=== PATIENT | female | born 1970 | race Caucasian/White ===

== ENCOUNTER → 2017-08-02 13:42 | Outpatient (POV) | payer MEDICARE, MEDICAID, SELFPAY ==
[2017-08-02 14:04] VITALS: BP 164/98; PULSE 98; RESP 18; TEMP 37.2; O2SAT 97; BMI 28.6
--- NOTE | 2017-08-02 14:16 | P.CONS_ITS ---
[facility] Pain Management SOAP Note Subjective:: This patient is a pleasant 46-year-old white female who we saw in December of last year for myofascial pain in the neck and shoulders. She received bilateral trigger point injections to her neck and upper trapezius area bilaterally. She did very well from these. She had good relief of her pain symptoms up until May. She was 80-90% better for 5 months. Her pain is starting to return. I do believe that she would benefit from repeat trigger point injections to bilateral cervical paraspinous muscles and upper trapezius muscles. Objective:: Alert and oriented ?3 in no acute distress. Decreased range of motion of the cervical spine. Trigger points identified through bilateral upper trapezius muscles and bilateral cervical paraspinous muscles. Motor strength of the upper extremities is 5/5. There is no gross sensory deficit. Assessment:: Neck pain and myofascial pain through cervical paraspinous muscles and upper trapezius muscles with trigger points identified. Plan:: We will schedule for trigger point injections to bilateral cervical paraspinous muscles and upper trapezius muscles.
== END ==
PROVIDERS: Family Provider Emergency Medicine; PCP Emergency Medicine; Visit Provider Anesthesiology
DX: M54.2 Cervicalgia (principal)
CPT/HCPCS: 99212

== ENCOUNTER → 2017-09-22 11:40 | Outpatient (REF) | payer MEDICARE, MEDICAID, SELFPAY ==
[2017-09-22 15:08] LABS: Basophils # 0.1 K/mm3 (0-0.2); Basophils % 0.9 % (0.1-2.0); Eosinophils # 0.2 K/mm3 (0.0-0.4); Eosinophils % 2.1 % (0.1-12.0); Hematocrit 47.7 % (37.0-47.0); Hemoglobin 15.3 g/dL (12.2-16.2); Lymphocytes # 2.9 K/mm3 (0.7-4.5); Lymphocytes % 31.4 K/mm3 (10-50); Mean Corpuscular HGB Conc 32.2 g/dL (31.8-35.4); Mean Corpuscular Hemoglobin 30.8 pg (27.0-31.2); Mean Corpuscular Volume 95.8 fl (81-99); Mean Platelet Volume 9.8 fl (7.4-10.4); Monocytes # 0.5 K/mm3 (0.1-1.0); Neutrophils # 5.6 K/mm3 (1.8-7.8); Neutrophils % 60.7 % (37.0-80.0); Platelet Count 273 K/mm3 (142-424); Red Blood Count 4.98 M/mm3 (4.20-5.40); Red Cell Distribution Width 13.2 % (11.5-17.5); White Blood Count 9.2 K/mm3 (4.8-10.8)
[2017-09-22 16:04] LABS: Alanine Aminotransferase 32 U/L (12-78); Albumin Level 3.2 gm/dL (3.4-5.0); Albumin/Globulin Ratio 0.9 (1.1-1.8); Alkaline Phosphatase 122 U/L (46-116); Anion Gap 13.3 mEq/L (5-15); Aspartate Amino Transferase 22 U/L (15-37); Bilirubin,Total 0.3 mg/dL (0.2-1.0); Blood Urea Nitrogen 7 mg/dL (7-18); Calcium 8.4 mg/dL (8.5-10.1); Carbon Dioxide 25 mmol/L (21.0-32.0); Chloride 107 mmol/L (98-107); Chol/HDL Ratio 5.5 (1-3.5); Cholesterol 159 mg/dL (140-200); Estimated Glomerular Filt Rate 107 ml/min (>60); GFR (African American) 130 ML/MIN (>60); Globulin 3.5 gm/dl (1.3-3.2); Glucose 122 mg/dL (74-106); HDL Cholesterol 29 mg/dL (29-89); Potassium 4.3 mmoL/L (3.5-5.1); Sodium 141 mmol/L (136-145); T4 (Thyroxine) 8.1 ug/dl (4.7-13.3); Thyroid Stimulating Hormone 2.12 uIU/ml (0.358-3.740); Total Protein,Serum 6.7 gm/dL (6.4-8.2)
[2017-09-22 16:07] LABS: Triglycerides 578 mg/dL (30-200)
[2017-09-24 15:33] LABS: Vitamin D 25 Hydroxy 21.7 ng/mL (30.0-100.0)
== END ==
LOC: LAB 11:40
PROVIDERS: Visit Provider Physician Assistant
DX: E11.9 Type 2 diabetes mellitus without complications (principal)
CPT/HCPCS: 80053; 80061; 82652; 83036; 84436; 84443; 85025

== ENCOUNTER → 2017-11-01 16:23 | Outpatient (CLI) | payer MEDICARE, MEDICAID, SELFPAY ==
--- NOTE | 2017-11-01 16:25 | MM_ITS ---
MM Dig screening mamm BI w/CAD CAD Screening COMPARISON: Digital mammograms 06/19/2015 and 06/22/2016 INDICATION: There is a history of breast cancer patient's 2 maternal aunts diagnosed before menopause. TECHNIQUE: Standard CC and MLO images were obtained. R2 CAD reviewed. FINDINGS: Moderate scattered fiber glandular densities are seen in the central portions of both breasts. There is no suspicious lesion seen in either breast and there are no suspicious microcalcifications. IMPRESSION: Fibrofatty parenchyma no suspicious lesion seen BI-RADS Category: 1 Negative RECOMMENDED FOLLOW-UP: 1YR - 1 YEAR FOLLOW-UP (A letter has been sent to the patient regarding results of the study.)
== END ==
PROVIDERS: Family Provider Emergency Medicine; PCP Emergency Medicine; Visit Provider Nurse Practitioner Family
DX: Z12.31 Encounter for screening mammogram for malignant neoplasm of breast (principal)
CPT/HCPCS: 77067

== ENCOUNTER → 2018-01-04 15:14 | Outpatient (REF) | payer MEDICARE, MEDICAID, SELFPAY ==
[2018-01-04 15:53] LABS: Basophils # 0.1 K/mm3 (0-0.2); Basophils % 0.7 % (0.1-2.0); Eosinophils # 0.2 K/mm3 (0.0-0.4); Hematocrit 48.5 % (37.0-47.0); Lymphocytes # 3.9 K/mm3 (0.7-4.5); Mean Corpuscular HGB Conc 30.9 g/dL (31.8-35.4); Mean Corpuscular Hemoglobin 29.8 pg (27.0-31.2); Mean Corpuscular Volume 96.3 fl (81-99); Mean Platelet Volume 9.8 fl (7.4-10.4); Monocytes # 0.5 K/mm3 (0.1-1.0); Monocytes % 4.7 % (1.7-9.3); Neutrophils # 5.3 K/mm3 (1.8-7.8); Neutrophils % 53.6 % (37.0-80.0); Platelet Count 287 K/mm3 (142-424); Red Blood Count 5.03 M/mm3 (4.20-5.40); Red Cell Distribution Width 13.6 % (11.5-17.5)
[2018-01-04 16:01] LABS: Alanine Aminotransferase 28 U/L (12-78); Albumin Level 3.5 gm/dL (3.4-5.0); Albumin/Globulin Ratio 0.9 (1.1-1.8); Alkaline Phosphatase 135 U/L (46-116); Aspartate Amino Transferase 15 U/L (15-37); Bilirubin,Total 0.3 mg/dL (0.2-1.0); Blood Urea Nitrogen 8 mg/dL (7-18); Calcium 8.4 mg/dL (8.5-10.1); Carbon Dioxide 26 mmol/L (21.0-32.0); Chloride 105 mmol/L (98-107); Chol/HDL Ratio 5.8 (1-3.5); Cholesterol 198 mg/dL (140-200); Creatinine,Serum 0.65 mg/dL (0.55-1.02); Estimated Glomerular Filt Rate 98 ml/min (>60); GFR (African American) 118 ML/MIN (>60); Globulin 3.8 gm/dl (1.3-3.2); Glucose 235 mg/dL (74-106); HDL Cholesterol 34 mg/dL (29-89); Sodium 139 mmol/L (136-145); T4 (Thyroxine) 9.1 ug/dl (4.7-13.3); Thyroid Stimulating Hormone 2.93 uIU/ml (0.358-3.740); Total Protein,Serum 7.3 gm/dL (6.4-8.2)
[2018-01-04 16:02] LABS: Triglycerides 578 mg/dL (30-200)
[2018-01-04 16:40] LABS: Hemoglobin A1C 5.6 % (0.0-7.0)
[2018-01-06 13:56] LABS: Vitamin D 25 Hydroxy 39.7 ng/mL (30.0-100.0)
== END ==
LOC: LAB 15:14
PROVIDERS: Visit Provider Emergency Medicine
DX: E11.9 Type 2 diabetes mellitus without complications (principal)
CPT/HCPCS: 80053; 80061; 82652; 83036; 84436; 84443; 85025

== ENCOUNTER → 2018-05-16 13:32 | Outpatient (CLI) | payer MEDICARE, MEDICAID, SELFPAY ==
[2018-05-16 13:59] LABS: Hemoglobin A1C 6.8 % (0.0-7.0)
== END ==
PROVIDERS: PCP Emergency Medicine; Visit Provider Emergency Medicine
DX: E11.9 Type 2 diabetes mellitus without complications (principal)
CPT/HCPCS: 83036

== ENCOUNTER → 2018-12-19 13:25 | Outpatient (CLI) | payer MEDICARE, SELFPAY ==
[2018-12-19 14:15] LABS: Basophils # 0.1 K/mm3 (0-0.2); Basophils % 0.6 % (0.1-2.0); Eosinophils # 0.2 K/mm3 (0.0-0.4); Eosinophils % 2.2 % (0.1-12.0); Hematocrit 44.1 % (37.0-47.0); Hemoglobin 14.7 g/dL (12.2-16.2); Lymphocytes # 3.1 K/mm3 (0.7-4.5); Lymphocytes % 29.9 % (10-50); Mean Corpuscular HGB Conc 33.2 g/dL (31.8-35.4); Mean Corpuscular Hemoglobin 30.1 pg (27.0-31.2); Mean Corpuscular Volume 90.8 fl (81-99); Mean Platelet Volume 8.7 fl (7.4-10.4); Monocytes # 0.4 K/mm3 (0.1-1.0); Monocytes % 4.1 % (1.7-9.3); Neutrophils # 6.5 K/mm3 (1.8-7.8); Neutrophils % 63.2 % (37.0-80.0); Platelet Count 319 K/mm3 (142-424); Red Blood Count 4.86 M/mm3 (4.20-5.40); Red Cell Distribution Width 13.5 % (11.5-17.5); White Blood Count 10.3 K/mm3 (4.8-10.8)
[2018-12-19 14:35] LABS: Alanine Aminotransferase 31 U/L (12-78); Albumin Level 3.5 gm/dL (3.4-5.0); Albumin/Globulin Ratio 0.9 (1.1-1.8); Alkaline Phosphatase 142 U/L (46-116); Anion Gap 17.2 mEq/L (5-15); Aspartate Amino Transferase 17 U/L (15-37); Bilirubin,Total 0.5 mg/dL (0.2-1.0); Blood Urea Nitrogen 11 mg/dL (7-18); Calcium 8.2 mg/dL (8.5-10.1); Carbon Dioxide 24 mmol/L (21.0-32.0); Chloride 103 mmol/L (98-107); Chol/HDL Ratio 7.8 (1-3.5); Cholesterol 225 mg/dL (140-200); Creatinine,Serum 0.83 mg/dL (0.55-1.02); Estimated Glomerular Filt Rate 73 ml/min (>60); Free T4 (Free Thyroxine) 0.95 ng/dl (0.76-1.46); GFR (African American) 89 ML/MIN (>60); Globulin 3.8 gm/dl (1.3-3.2); Glucose 149 mg/dL (74-106); HDL Cholesterol 29 mg/dL (29-89); Potassium 4.2 mmoL/L (3.5-5.1); Sodium 140 mmol/L (136-145); Thyroid Stimulating Hormone 2.55 uIU/ml (0.358-3.740); Total Protein,Serum 7.3 gm/dL (6.4-8.2)
[2018-12-19 14:49] LABS: Triglycerides 867 mg/dL (30-200)
[2018-12-19 19:32] LABS: Hemoglobin A1C 6.4 % (0.0-7.0)
[2018-12-20 19:55] LABS: Vitamin B12 350 pg/mL (232-1245); Vitamin D 25 Hydroxy 24.4 ng/mL (30.0-100.0)
== END ==
PROVIDERS: Visit Provider Emergency Medicine
DX: E11.9 Type 2 diabetes mellitus without complications (principal); Z79.84 Long term (current) use of oral hypoglycemic drugs
CPT/HCPCS: 80053; 80061; 82607; 82652; 83036; 84439; 84443; 85025

== ENCOUNTER → 2019-02-16 12:38 | Outpatient (CLI) | payer MEDICARE, SELFPAY ==
--- NOTE | 2019-02-16 12:39 | CT_ITS ---
CT CERVICAL SPINE WITHOUT CONTRAST CT RECONSTRUCTIONS HISTORY:Neck pain with left arm numbness ORDERING PHYSICIAN: Cirilo Bishop APRN PATIENT AGE: 48 years COMPARISON: None Technique: All CT scans at the facility use one or more dose reduction, viz: automated exposure control, ma/kV adjustment per patient size (including targeted exams where dose is matched to indication, i.e. head), or iterative reconstruction technique PROCEDURE: Axial spiral CT scanning performed of the cervical spine beginning at the base of the skull and continuing to the upper T-spine. 3-D multiplanar reconstruction with 3-D manipulation of volumetric data set in image rendering was completed by the radiologist and/or technologist with the supervision of the radiologist on independent workstation. FINDINGS: There is normal alignment. There is slight reversal of the cervical lordosis. This could be due to patient positioning or muscle spasm. C2-C3 and C3-C4 and C4-C5 have an unremarkable appearance. C5-C6: Mild bulging disc slightly eccentric to the left. There is some minimal posterior longitudinal ligament calcification at this area. C6-C7 and C7-T1 are unremarkable. Upper thoracic images show a 3 mm noncalcified nodule in the right apex laterally and an additional 3 mm nodular density medially in the apex with some mild paraseptal emphysematous change. The most inferior image shows a 4 mm nodule in the right upper lobe posteriorly. IMPRESSION: 1. There is slight reversal of cervical lordosis which could be due to patient positioning or muscle spasm. 2. Mild degenerative disc disease C5-C6 with minimal bulging disc slightly eccentric to the left with mild left-sided foraminal narrowing. This may be better evaluated with MRI if clinically desired. 3. Nonspecific right upper lobe nodules. Consider 6 month follow-up
== END ==
PROVIDERS: PCP Emergency Medicine; Visit Provider Nurse Practitioner Family
DX: M54.2 Cervicalgia (principal)
CPT/HCPCS: 72125

== ENCOUNTER 2019-07-06 15:19 | Inpatient (IN) ==
--- NOTE | 2019-07-06 16:41 | History & Physical Report ---
*Admission Date: 07/06/19 *Chief complaint: soa *History of present illness: 49 yr old female presented to pcp office today for lightheadedness, tachycardia, soa with walking and chest pain, hyperglycemia, fatigue, and unable to keep liquids down. Pt states this has been going on for 1 week and was seen in [facility] and placed on antibiotics but now feels worse. Discussed pt with rachel and admitted for uncontrolled htn for cardiac work up. [facility] History I have reviewed the patient's past medical history: Yes 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: Reports:: Diabetes Mellitus Type 2, Hyperlipidemia, Hypertension Denies:: Diabetes Mellitus Type 1 *Have you ever received a pneumonia vaccine?: Yes *Have you received a flu vaccine this season?: No Other 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: Reports: Anemia, Cataracts, Hormone Therapy Laterality Cases: Bilateral: Tonsillectomy Other Surgeries: Yes: Cholecystectomy, Hysterectomy-Total, Tubal Ligation, Other Amputation: No Fractures: No - *Social History Educational Level: Attended College Smoking Status: Current every day smoker Tobacco Type: cigarettes # Packs/Day (cigarettes): 1 Alcohol Intake: never Alcohol Intake Frequency:: other Substance Use Type: denies use *Occupational Status:: employed Housing: house Household Members: none *Travel in the last 8 weeks: None Family Hx:: Cancer, Diabetes, Stroke Review of Systems - Review of Systems Review of systems:: pertinent systems reviewed and negative unless documented below - Constitutional Reports fatigue, Reports lack of energy, Denies body ache(s), Denies fever(s) - Eyes Denies change in vision - ENT Denies nasal discharge - *Cardiovascular Reports chest pain, Reports chest pain at rest, Reports chest pain with activity, Reports shortness of breath, Reports shortness of breath with activity, Reports lightheadedness - *Respiratory Reports shortness of breath with activity, Denies chest congestion - *Gastrointestinal Reports nausea, Denies loose stools, Denies vomiting - *Genitourinary Denies nipple discharge - *Musculoskeletal Denies limited joint movement - Integumentary/Breasts Denies rash - *Neurologic Reports dizziness - Psychiatric Denies lack of enjoyment - Endocrine Denies flushing - Hematologic/Lymphatic Denies enlarged lymph nodes - Allergic/Immunologic Denies itchy eyes Meds Home Medications Medication Instructions Recorded Confirmed Type metformin 1,000 mg tablet 1,000 mg PO BID #180 tab 01/04/19 07/06/19 Rx gemfibrozil 600 mg tablet 600 mg PO BID #180 tab 01/13/19 07/06/19 Rx glipizide 5 mg tablet 5 mg PO QDAY 90 Days #90 tab 03/28/19 07/06/19 Rx cetirizine 10 mg tablet 10 mg PO DAILY #90 tab 04/07/19 07/06/19 Rx trazodone 50 mg tablet 50 mg PO QHS PRN #90 tab 04/26/19 07/06/19 Rx atorvastatin 40 mg tablet 40 mg PO DAILY #90 tab 05/01/19 07/06/19 Rx bupropion HCl 75 mg tablet See Rx Instructions .ROUTE 05/08/19 07/06/19 Rx .COMPLEX #180 tablet ergocalciferol (vitamin D2) 1,250 See Rx Instructions .ROUTE 05/08/19 07/06/19 Rx mcg (50,000 unit) capsule .COMPLEX #12 capsule lisinopril 20 mg tablet 20 mg PO DAILY #90 tab 05/17/19 07/06/19 Rx estradiol 2 mg tablet See Rx Instructions .ROUTE 05/18/19 07/06/19 Rx .COMPLEX #90 tablet linagliptin 5 mg tablet See Rx Instructions .ROUTE 05/18/19 07/06/19 Rx .COMPLEX #90 tablet blood sugar diagnostic See Dose Instructions .ROUTE 05/23/19 07/06/19 Rx .MEDSUPPLY #100 each lancets See Dose Instructions .ROUTE 05/23/19 07/06/19 Rx .MEDSUPPLY #100 each omeprazole 20 mg capsule,delayed See Rx Instructions .ROUTE 06/21/19 07/06/19 Rx release .COMPLEX #90 capsule Amoxicillin/Potassium Clav 1 tab PO BID 10 Days #20 tab 07/01/19 07/06/19 Rx [Augmentin 875-125 Tablet] carvedilol 3.125 mg tablet See Rx Instructions .ROUTE 07/03/19 07/06/19 Rx .COMPLEX #180 tab Allergies Allergy/AdvReac Type Severity Reaction Status Date / Time codeine [CODEINE] Allergy Unknown I-HIVES Verified 07/06/19 14:33 Exam Vital signs and Labs for Last 24 Hours: Pulse BP Pulse Ox 95 H 178/103 H 97 07/06/19 16:15 07/06/19 16:15 07/06/19 16:15 I & O for Last 24 hours: Intake & Output 07/04/19 07/05/19 07/06/19 07/07/19 11:59 11:59 11:59 11:59 Weight 183 lb 9 oz - Constitutional no acute distress - *Routine HEENT Exam Head: Present: normocephalic Eye: Present: PERRL ENT: Present: mucous membranes moist - *Routine Neck Exam Present: supple, full ROM. Absent: lymphadenopathy - *Routine Respiratory Exam Present: CTA bilaterally - *Routine Cardiovascular Exam Present: tachycardia - *Routine Abdominal Exam Present: soft, normoactive bowel sounds. Absent: tenderness - *Routine Extremities Exam Present: full ROM. Absent: cyanosis, clubbing, edema - *Routine Skin Exam Present: intact, warm. Absent: rash - *Routine Neurological Exam Present: alert, oriented X3, CN II-XII intact, normal reflexes - Routine Psychiatric Exam Present: normal affect Assessment and Plan (1) Tachycardia Current visit: Yes Status: Acute Category: Medical Code(s): R00.0 - Tachycardia, unspecified (2) Uncontrolled hypertension Current visit: Yes Status: Acute Category: Medical Code(s): I10 - Essential (primary) hypertension (3) Hypertension Current visit: No Status: Acute Qualifiers: Hypertension type: essential hypertension Qualified Code(s): I10 - Essential (primary) hypertension Category: Medical Code(s): I10 - Essential (primary) hypertension (4) Obesity (BMI 30.0-34.9) Current visit: No Status: Acute Category: Medical Code(s): E66.9 - Obesity, unspecified (5) Tobacco use Current visit: No Status: Acute Category: Medical Code(s): Z72.0 - Tobacco use (6) Diabetes mellitus Current visit: No Status: Chronic Qualifiers: Diabetes mellitus type: type 2 Diabetes mellitus group home insulin use: without long term care phlebotomist use Diabetes mellitus complication status: without complica tion Qualified Code(s): E11.9 - Type 2 diabetes mellitus without complications Category: Medical Code(s): E11.9 - Type 2 diabetes mellitus without complications - Assessment and plan all Dx Assessment and Plan for all problems:: discussed with shantal all orders per shantal
[2019-07-06 16:49] LABS: Basophils # 0.1 K/mm3 (0-0.2); Basophils % 0.4 % (0.1-2.0); Eosinophils # 0.2 K/mm3 (0.0-0.4); Eosinophils % 1.7 % (0.1-12.0); Hematocrit 43.9 % (37.0-47.0); Hemoglobin 14.8 g/dL (12.2-16.2); Lymphocytes # 3.6 K/mm3 (0.7-4.5); Lymphocytes % 31.1 % (10-50); Mean Corpuscular HGB Conc 33.8 g/dL (31.8-35.4); Mean Corpuscular Volume 91.1 fl (81-99); Mean Platelet Volume 8.5 fl (7.4-10.4); Monocytes # 0.5 K/mm3 (0.1-1.0); Monocytes % 4.6 % (1.7-9.3); Neutrophils # 7.1 K/mm3 (1.8-7.8); Neutrophils % 62.2 % (37.0-80.0); Platelet Count 290 K/mm3 (142-424); Red Blood Count 4.82 M/mm3 (4.20-5.40); Red Cell Distribution Width 13.2 % (11.5-17.5); White Blood Count 11.5 K/mm3 (4.8-10.8)
[2019-07-06 16:50] LABS: Albumin Level 3.1 gm/dL (3.4-5.0); Albumin/Globulin Ratio 0.7 (1.1-1.8); Anion Gap 14.7 mEq/L (5-15); Bilirubin,Total 0.3 mg/dL (0.2-1.0); Calcium 8.3 mg/dL (8.5-10.1); Globulin 4.2 gm/dl (1.3-3.2); Total Protein,Serum 7.3 gm/dL (6.4-8.2)
[2019-07-07 06:11] LABS: Anion Gap 11.8 mEq/L (5-15); Blood Urea Nitrogen 12 mg/dL (7-18); Calcium 7.9 mg/dL (8.5-10.1); Carbon Dioxide 26 mmol/L (21.0-32.0); Chloride 104 mmol/L (98-107); Cholesterol 159 mg/dL (140-200); Glucose 179 mg/dL (74-106); HDL Cholesterol 32 mg/dL (29-89); Sodium 138 mmol/L (136-145)
[2019-07-07 06:35] LABS: Triglycerides 606 mg/dL (30-200)
[2019-07-07 08:34] LABS: Basophils # 0.1 K/mm3 (0-0.2); Basophils % 0.6 % (0.1-2.0); Eosinophils # 0.2 K/mm3 (0.0-0.4); Eosinophils % 1.8 % (0.1-12.0); Hematocrit 41.4 % (37.0-47.0); Hemoglobin 13.8 g/dL (12.2-16.2); Lymphocytes # 3.8 K/mm3 (0.7-4.5); Lymphocytes % 34.1 % (10-50); Mean Corpuscular HGB Conc 33.3 g/dL (31.8-35.4); Mean Corpuscular Volume 92.7 fl (81-99); Mean Platelet Volume 9.4 fl (7.4-10.4); Monocytes # 0.6 K/mm3 (0.1-1.0); Monocytes % 5.7 % (1.7-9.3); Neutrophils # 6.5 K/mm3 (1.8-7.8); Neutrophils % 57.8 % (37.0-80.0); Platelet Count 283 K/mm3 (142-424); Red Blood Count 4.47 M/mm3 (4.20-5.40); Red Cell Distribution Width 13.4 % (11.5-17.5); White Blood Count 11.2 K/mm3 (4.8-10.8)
--- NOTE | 2019-07-07 10:09 | Consult Report ---
History of Present Illness Consult date: 07/07/19 Requesting physician: Naif Childress Consult reason: chest pain Chief complaint: chest pain Additional 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:: 1. Normal coronary arteries in 2017 2. Normal renal arteries in 2017 3. Hypertension 4. Hyperlipidemia 5. Diabetes [facility] 09/2016 shows: 1. Normal coronary arteries. 2. Normal ejection fraction 3. Normal left ventricular end-diastolic pressure 4. Normal renal arteries History of present illness: This is a 49-year-old white female who presented to her primary care provider's office with tachycardia, shortness of breath, lightheadedness and chest pain with exertion. The patient states that her blood pressure had been running high and she was having chest pain with exertion. The patient also was complaining of fatigue and hyperglycemia. She states that she had not been feeling well when her blood pressure began to elevate. The patient was complaining of a pressure type sensation in the center of her chest. This is with exertion. It does get better with rest. Associated with shortness of breath, fatigue, lightheadedness and tachycardia. These symptoms were severe. Her blood pressure is under much better control at this time. She does report that her symptoms have improved. The patient does have a history of normal coronary arteries and normal renal arteries in 2017. The patient needs better blood pressure control. She denies any fever, chills, nausea, vomiting, diarrhea, PND or orthopnea. [facility] History I have reviewed the patient's past medical history: Yes 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: Reports:: Diabetes Mellitus Type 2, Hyperlipidemia, Hypertension Denies:: Diabetes Mellitus Type 1 *Have you ever received a pneumonia vaccine?: Yes *Have you received a flu vaccine this season?: No Other 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: Reports: Anemia, Cataracts, Hormone Therapy Laterality Cases: Bilateral: Tonsillectomy Other Surgeries: Yes: Cholecystectomy, Hysterectomy-Total, Tubal Ligation, Other Amputation: No Fractures: No - *Social History Educational Level: Attended College Smoking Status: Current every day smoker Tobacco Type: cigarettes # Packs/Day (cigarettes): 1 Alcohol Intake: never Alcohol Intake Frequency:: other Substance Use Type: denies use *Occupational Status:: employed Housing: house Household Members: none *Travel in the last 8 weeks: None Family Hx:: Cancer, Diabetes, Stroke Meds Home Medications Medication Instructions Recorded Confirmed Type metformin 1,000 mg tablet 1,000 mg PO BID #180 tab 01/04/19 07/06/19 Rx gemfibrozil 600 mg tablet 600 mg PO BID #180 tab 01/13/19 07/06/19 Rx glipizide 5 mg tablet 5 mg PO QDAY 90 Days #90 tab 03/28/19 07/06/19 Rx trazodone 50 mg tablet 50 mg PO QHS PRN #90 tab 04/26/19 07/06/19 Rx atorvastatin 40 mg tablet 40 mg PO DAILY #90 tab 05/01/19 07/06/19 Rx lisinopril 20 mg tablet 20 mg PO DAILY #90 tab 05/17/19 07/06/19 Rx Amoxicillin/Potassium Clav 1 tab PO BID 10 Days #20 tab 07/01/19 07/06/19 Rx [Augmentin 875-125 Tablet] Cetirizine HCl 10 mg PO DAILY 07/06/19 07/06/19 History Ergocalciferol (Vitamin D2) See Rx Instructions .ROUTE .COMPLEX 07/06/19 07/06/19 History [Drisdol] Estradiol [Estrace] 2 mg PO DAILY 07/06/19 07/06/19 History Linagliptin [Tradjenta 5mg tablet] 5 mg PO DAILY 07/06/19 07/06/19 History Omeprazole [Omeprazole 20mg 20 mg PO DAILY 07/06/19 07/06/19 History Capsule] buPROPion HCL [Wellbutrin 75mg 75 mg PO BID 07/06/19 07/06/19 History Tablet] carvediloL [Carvedilol 3.125mg Tab] 3.125 mg PO DAILY 07/06/19 07/06/19 History Allergies Allergy/AdvReac Type Severity Reaction Status Date / Time codeine [CODEINE] Allergy Unknown I-HIVES Verified 07/06/19 14:33 Review of Systems - Review of Systems Review of systems:: pertinent systems reviewed and negative unless documented below - Constitutional Reports fever(s), Reports lack of energy - *Cardiovascular Reports chest pain, Reports chest pain at rest, Reports chest pain with activity, Reports shortness of breath, Reports shortness of breath with activity, Reports fast heart rate - *Respiratory Reports shortness of breath, Reports shortness of breath with activity - *Neurologic Reports dizziness Exam Vital signs and Labs for Last 24 Hours: Temp Pulse Resp BP Pulse Ox 98.1 F 71 18 123/75 94 L 07/07/19 08:00 07/07/19 08:00 07/07/19 08:00 07/07/19 08:00 07/07/19 08:00 Laboratory Results - last 24 hr 07/06/19 15:55: WBC 11.5 H, RBC 4.82, Hgb 14.8, Hct 43.9, MCV 91.1, MCH 30.8, MCHC 33.8, RDW 13.2, Plt Count 290, MPV 8.5, Neut % (Auto) 62.2, Lymph % (Auto) 31.1, Moca % (Auto) 4.6, Eos % (Auto) 1.7, Baso % (Auto) 0.4, Neut # (Auto) 7.1, Lymph # (Auto) 3.6, Moca # (Auto) 0.5, Eos # (Auto) 0.2, Baso # (Auto) 0.1 07/06/19 15:55: Sodium 138, Potassium 3.7, Chloride 102, Carbon Dioxide 25, Anion Gap 14.7, BUN 12, Creatinine 0.84, Estimated Creat Clear 106, Estimated GFR 72, Est GFR ( Amer) 87, Glucose 175 H, Calcium 8.3 L, Total Bilirubin 0.3, AST 8 L, ALT 20, Alkaline Phosphatase 145 H, Total Protein 7.3, Albumin 3.1 L, Globulin 4.2 H, Albumin/Globulin Ratio 0.7 L 07/06/19 15:55: Troponin I < 0.02 07/06/19 20:03: POC Glucose 129 H 07/06/19 20:07: Troponin I < 0.02 07/06/19 22:32: Troponin I < 0.02 07/07/19 05:28: Sodium 138, Potassium 3.8, Chloride 104, Carbon Dioxide 26, Anion Gap 11.8, BUN 12, Creatinine 0.79, Estimated Creat Clear 117, Estimated GFR 77, Est GFR ( Amer) 94, Glucose 179 H, Calcium 7.9 L, Triglycerides 606 H, Cholesterol 159, HDL Cholesterol 32, Cholesterol/HDL Ratio 5.0 H 07/07/19 05:28: WBC 11.2 H, RBC 4.47, Hgb 13.8, Hct 41.4, MCV 92.7, MCH 30.8, MCHC 33.3, RDW 13.4, Plt Count 283, MPV 9.4, Neut % (Auto) 57.8, Lymph % (Auto) 34.1, Moca % (Auto) 5.7, Eos % (Auto) 1.8, Baso % (Auto) 0.6, Neut # (Auto) 6.5, Lymph # (Auto) 3.8, Moca # (Auto) 0.6, Eos # (Auto) 0.2, Baso # (Auto) 0.1 I & O for Last 24 hours: Intake & Output 07/04/19 07/05/19 07/06/19 07/07/19 23:59 23:59 23:59 23:59 Intake Total 470 / 470 589 / 589 Output Total 200 / 200 500 / 500 Balance 270 / 270 89 / 89 Weight 183 lb 9 oz 189 lb Narrative: Telemetry strip shows sinus rhythm with a rate of 81. - Constitutional no acute distress, obese - *Routine HEENT Exam Head: Present: normocephalic, atraumatic Eye: Present: EOMI, PERRL ENT: Present: mucous membranes moist - *Routine Neck Exam Present: supple, full ROM, normal carotid upstroke. Absent: JVD, carotid bruit, lymphadenopathy - *Routine Respiratory Exam Present: CTA bilaterally - *Routine Cardiovascular Exam Present: RRR, Normal S1, Normal S2. Absent: murmur - *Routine Abdominal Exam Present: soft, normoactive bowel sounds. Absent: tenderness, distended - *Routine Extremities Exam Present: full ROM, pulses intact, normal capillary refill. Absent: cyanosis, clubbing, edema - *Routine Skin Exam Present: intact, warm. Absent: erythema, rash - *Routine Neurological Exam Present: alert, oriented X3, CN II-XII intact. Absent: sensory deficit, motor deficit - Routine Psychiatric Exam Present: normal affect, normal thought process - Detailed Eye Exam Eyelids: Left normal inspection Assessment and Plan (1) Uncontrolled hypertension Current visit: Yes Status: Acute Category: Medical Code(s): I10 - Essential (primary) hypertension (2) Hypertension Current visit: No Status: Acute Qualifiers: Hypertension type: essential hypertension Qualified Code(s): I10 - Essential (primary) hypertension Category: Medical Code(s): I10 - Essential (primary) hypertension (3) Obesity (BMI 30.0-34.9) Current visit: No Status: Acute Category: Medical Code(s): E66.9 - Obesity, unspecified (4) Tobacco use Current visit: No Status: Acute Category: Medical Code(s): Z72.0 - Tobacco use (5) Diabetes mellitus Current visit: No Status: Chronic Qualifiers: Diabetes mellitus type: type 2 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 The patient was admitted to the hospital for uncontrolled hypertension, chest pain and shortness of breath. The patient has ruled out for an DC. She has a history of normal coronary arteries and normal renal arteries. No plans for invasive cardiac testing at this time. 2. The patient has had a renal duplex completed which is currently pending. However, she does have a history of normal renal artery so no plans for invasive testing at this time. 3. The patient has been started on amlodipine 10 mg yesterday. This was a one- time dose. It did help to improve her blood pressure significantly. We will start her on amlodipine 10 mg p.o. daily for better blood pressure control. 4. Her LDL goal is less than 100. 5. Tobacco cessation is highly advised and counseled. 6. She does have a history of diabetes. She does need aggressive control of her diabetes. Will defer this to her primary care provider. 7. As mentioned above we will add amlodipine 10 mg p.o. daily to her blood pressure medications regimen for better blood pressure control. She is stable for discharge home today from a cardiac standpoint. She is to follow-up in 1 to 2 weeks on an outpatient basis. Thank you for the opportunity to help participate in the care of this patient.
--- NOTE | 2019-07-07 10:19 | Pharmacy Consult Notes ---
[facility] Pharmacy VTE Monitoring - Patient Demographics Admission date: 07/06/19 Report Date: 07/07/19 Time: 10:19 Allergies/Adverse Reactions: Patient Allergies codeine [CODEINE] Allergy (Unknown, Verified 07/06/19 14:33) I-EZRA Height: 1.65 m Weight: 85.729 kg Patient Problems: Current Active Problems (Last Updated 09/26/17 @ 13:10 by ADAM Landeros) Tachycardia (Acute) Uncontrolled hypertension (Acute) HLD (hyperlipidemia) (Chronic) - VTE Risk Labs: VTE Related Lab Results Hgb 13.8 g/dL (12.2-16.2) 07/07/19 05:28 Hct 41.4 % (37.0-47.0) 07/07/19 05:28 Plt Count 283 K/mm3 (142-424) 07/07/19 05:28 BUN 12 mg/dL (7-18) 07/07/19 05:28 Creatinine 0.79 mg/dL (0.55-1.02) 07/07/19 05:28 Estimated Creat Clear 117 mL/min (50-200) 07/07/19 05:28 Was VTE Risk Assessment Performed: Yes VTE Score: 3 VTE Risk Level: Low Risk - Prophylaxis VTE Prophylaxis Ordered?: Yes Types of VTE Prophylaxis: TEDS Knee High Location of Applied Device: Bilateral Lower Extremeties
--- NOTE | 2019-07-07 12:44 | Discharge Summary ---
General - General Admission date:: 07/06/19 Discharge date: 07/07/19 HPI HPI: 49 yr old female presented to pcp office today for lightheadedness, tachycardia, soa with walking and chest pain, hyperglycemia, fatigue, and unable to keep liquids down. Pt states this has been going on for 1 week and was seen in [facility] and placed on antibiotics but now feels worse. Discussed pt with rachel and admitted for uncontrolled htn for cardiac work up. Hospital Course Hospital Course: -See note cardiology consult Renal artery duplexes-waiting for report Norvasc 10 mg given yesterday which controlled blood pressure will discharge home on daily Norvasc and follow-up with cardiology in 1 week. Today patient states she feels better she is not having lightheadedness or dizziness. Cardiology okay to discharge from the standpoint. Slightly elevated white blood cells will discharge home on oral antibiotics. Patient will be followed up in the office on Wednesday and will monitor blood pressure at home and bring a log in to appointment Patient is to continue monitoring her glucose Chest [id number] acute Labs-troponins were within normal Objective Vital signs: Temp Pulse Resp BP Pulse Ox 98.1 F 84 20 127/83 95 07/07/19 12:00 07/07/19 12:00 07/07/19 12:00 07/07/19 12:00 07/07/19 12:00 no acute distress - *Routine HEENT Exam Head: Present: normocephalic Eye: Present: PERRL ENT: Present: mucous membranes moist - *Routine Respiratory Exam Present: CTA bilaterally - *Routine Cardiovascular Exam Present: RRR - *Routine Abdominal Exam Present: soft, normoactive bowel sounds. Absent: tenderness - *Routine Extremities Exam Present: full ROM - *Routine Skin Exam Present: intact - *Routine Neurological Exam Present: alert, oriented X3 - Routine Psychiatric Exam Present: normal affect Results Labs on day of discharge: Labs from last 24 hours 07/07/19 07/07/19 07/07/19 11:57 05:28 05:28 WBC 11.2 H RBC 4.47 Hgb 13.8 Hct 41.4 MCV 92.7 MCH 30.8 MCHC 33.3 RDW 13.4 Plt Count 283 MPV 9.4 Neut % (Auto) 57.8 Lymph % (Auto) 34.1 [place] % (Auto) 5.7 Eos % (Auto) 1.8 Baso % (Auto) 0.6 Neut # (Auto) 6.5 Lymph # (Auto) 3.8 [place] # (Auto) 0.6 Eos # (Auto) 0.2 Baso # (Auto) 0.1 Sodium 138 Potassium 3.8 Chloride 104 Carbon Dioxide 26 Anion Gap 11.8 BUN 12 Creatinine 0.79 Estimated Creat Clear 117 Estimated GFR 77 Est GFR ( Amer) 94 Glucose 179 H POC Glucose 218 H Calcium 7.9 L Total Bilirubin AST ALT Alkaline Phosphatase Troponin I Total Protein Albumin Globulin Albumin/Globulin Ratio Triglycerides 606 H Cholesterol 159 HDL Cholesterol 32 Cholesterol/HDL Ratio 5.0 H 07/06/19 07/06/19 07/06/19 22:32 20:07 20:03 WBC RBC Hgb Hct MCV MCH MCHC RDW Plt Count MPV Neut % (Auto) Lymph % (Auto) [place] % (Auto) Eos % (Auto) Baso % (Auto) Neut # (Auto) Lymph # (Auto) [place] # (Auto) Eos # (Auto) Baso # (Auto) Sodium Potassium Chloride Carbon Dioxide Anion Gap BUN Creatinine Estimated Creat Clear Estimated GFR Est GFR ( Amer) Glucose POC Glucose 129 H Calcium Total Bilirubin AST ALT Alkaline Phosphatase Troponin I < 0.02 < 0.02 Total Protein Albumin Globulin Albumin/Globulin Ratio Triglycerides Cholesterol HDL Cholesterol Cholesterol/HDL Ratio 07/06/19 07/06/19 07/06/19 15:55 15:55 15:55 WBC 11.5 H RBC 4.82 Hgb 14.8 Hct 43.9 MCV 91.1 MCH 30.8 MCHC 33.8 RDW 13.2 Plt Count 290 MPV 8.5 Neut % (Auto) 62.2 Lymph % (Auto) 31.1 [place] % (Auto) 4.6 Eos % (Auto) 1.7 Baso % (Auto) 0.4 Neut # (Auto) 7.1 Lymph # (Auto) 3.6 [place] # (Auto) 0.5 Eos # (Auto) 0.2 Baso # (Auto) 0.1 Sodium 138 Potassium 3.7 Chloride 102 Carbon Dioxide 25 Anion Gap 14.7 BUN 12 Creatinine 0.84 Estimated Creat Clear 106 Estimated GFR 72 Est GFR ( Amer) 87 Glucose 175 H POC Glucose Calcium 8.3 L Total Bilirubin 0.3 AST 8 L ALT 20 Alkaline Phosphatase 145 H Troponin I < 0.02 Total Protein 7.3 Albumin 3.1 L Globulin 4.2 H Albumin/Globulin Ratio 0.7 L Triglycerides Cholesterol HDL Cholesterol Cholesterol/HDL Ratio - Additional Comments Rounded with Dr. Childress all orders per Fior DS: Diagnosis - Discharge Diagnosis (1) Uncontrolled hypertension Status: Acute (2) Hypertension Status: Acute (3) Obesity (BMI 30.0-34.9) Status: Acute (4) Tobacco use Status: Acute (5) Diabetes mellitus Status: Chronic (6) HLD (hyperlipidemia) Status: Chronic Discharge Plan - Patient Discharge Instructions ACTIVITY: Continue current activity DIET: continue same diet Patient Instructions: Hypertension (Alternative Therapy), Essential Hypertension - Follow up Plan Follow up with: Cirilo Bishop APRN [Nurse Practitioner] - 07/11/19 David Jarrett MD [Staff Physician] - 2 weeks Disposition: Home, Self-Assisted Medications: Home Medications Medication Instructions Recorded Confirmed Type metformin 1,000 mg tablet 1,000 mg PO BID #180 tab 01/04/19 07/06/19 Rx glipizide 5 mg tablet 5 mg PO QDAY 90 Days #90 tab 03/28/19 07/06/19 Rx lisinopril 20 mg tablet 20 mg PO DAILY #90 tab 05/17/19 07/06/19 Rx Amoxicillin/Potassium Clav 1 tab PO BID 10 Days #20 tab 07/01/19 07/06/19 Rx [Augmentin 875-125 Tablet] Cetirizine HCl 10 mg PO DAILY 07/06/19 07/06/19 History Estradiol [Estrace] 2 mg PO DAILY 07/06/19 07/06/19 History Linagliptin [Tradjenta 5mg tablet] 5 mg PO DAILY 07/06/19 07/06/19 History Omeprazole [Omeprazole 20mg 20 mg PO DAILY 07/06/19 07/06/19 History Capsule] buPROPion HCL [Wellbutrin 75mg 75 mg PO BID 07/06/19 07/06/19 History Tablet] carvediloL [Carvedilol 3.125mg Tab] 3.125 mg PO DAILY 07/06/19 07/06/19 History Amlodipine Besylate [Norvasc 10mg 10 mg PO DAILY 30 Days #30 tab 07/07/19 Rx tablet] Atorvastatin Calcium [Atorvastatin 40 mg PO HS 07/07/19 07/07/19 History 40mg Tab] Ergocalciferol (Vitamin D2) 50,000 units PO WEEKLY 07/07/19 07/07/19 History [Drisdol 50,000 units (1.25mg) capsule] Gemfibrozil 600 mg PO BID 07/07/19 07/07/19 History Trazodone HCl 50 mg PO HSP PRN 07/07/19 07/07/19 History cephALEXin [Keflex 500mg Cap] 500 mg PO BID 10 Days #20 cap 07/07/19 Rx Prescriptions/Medication Reconciliation: New Amlodipine Besylate [Norvasc 10mg tablet] 10 mg PO DAILY 30 Days #30 tab cephALEXin [Keflex 500mg Cap] 500 mg PO BID 10 Days #20 cap Continued metformin 1,000 mg tablet 1,000 mg PO BID #180 tab glipizide 5 mg tablet 5 mg PO QDAY 90 Days #90 tab lisinopril 20 mg tablet 20 mg PO DAILY #90 tab buPROPion HCL [Wellbutrin 75mg Tablet] 75 mg PO BID Cetirizine HCl 10 mg PO DAILY Estradiol [Estrace] 2 mg PO DAILY Linagliptin [Tradjenta 5mg tablet] 5 mg PO DAILY Omeprazole [Omeprazole 20mg Capsule] 20 mg PO DAILY carvediloL [Carvedilol 3.125mg Tab] 3.125 mg PO DAILY Ergocalciferol (Vitamin D2) [Drisdol 50,000 units (1.25mg) capsule] 50,000 units PO WEEKLY Gemfibrozil 600 mg PO BID Trazodone HCl 50 mg PO HSP PRN PRN Reason: Sleep Atorvastatin Calcium [Atorvastatin 40mg Tab] 40 mg PO HS Discontinued Amoxicillin/Potassium Clav [Augmentin 875-125 Tablet] 1 tab PO BID 10 Days #20 tab - Problem Reconciliation Problems Reviewed?: Yes
--- NOTE | 2019-07-07 14:23 | Cardiology Report ---
APPROVED REPORT Maintenance Instructor: Dana Alford RVT Study Quality: Excellent Indications: htn Risk Factors Hypertension Hyperlipidemia Diabetes Smoking Renal Artery Doppler Origin (R) 114.8/ cm/sec Proximal (R) 111.4/ cm/sec Mid (R) 123.9/ cm/sec Distal (R) 150.0/ cm/sec Renal Aorta Ratio (R)1.35 Segmental A. (R) 43.6/20.6 cm/sec RI: 0.52 Segmental A. Sup (R) 39.4/13.5 cm/sec Segmental A. Mid (R) 33.9/15.8 cm/sec Segmental A. Inf (R) 43.6/20.6 cm/sec Origin (L) 147.1/ cm/sec Proximal (L) 130.2/ cm/sec Mid (L) 141.9/ cm/sec Distal (L) 109.1/ cm/sec Renal Aorta Ratio (L)1.32 Segmental A. (L) 76.9/24.9 cm/sec RI: 0.67 Segmental A. Sup (L) 56.1/29.1 cm/sec Segmental A. Mid (L) 76.9/24.9 cm/sec Segmental A. Inf (L) 95.6/37.4 cm/sec Renal Measurements Kidney Size (R) 10.7x7.8 cm Cortical Thickness (R) 1.5 cm Kidney Size (L) 10.5x6.1 cm Cortical Thickness (L) 1.2 cm Findings Study suggests no evidence of bilateral renal artery stenosis. Conclusion Study suggests no evidence of bilateral renal artery stenosis. Electronically signed by : Sunny Casper, 07/07/2019 14:23:17
== END 2019-07-07 14:16 | disposition home or self-care (01) | DRG 305 ==
LOC: 2ND 15:26
PROVIDERS: ADMIT Emergency Medicine; ATTEND Emergency Medicine

== ENCOUNTER → 2019-07-25 12:54 | Outpatient (CLI) | payer MEDICARE, MEDICAID, SELFPAY ==
--- NOTE | 2019-07-25 12:57 | MR_ITS ---
PROCEDURE: MR HEAD/BRAIN WO CON CLINICAL INDICATION: DIZZINESS Headache, dizziness, electrical shock feeling along the right-side of the face, memory loss, blurred vision COMPARISON: CT HEAD/BRAIN WO CON from 07/01/2019 TECHNIQUE: Routine multiplanar multi echo sequences are performed without gadolinium enhancement. FINDINGS: No midline shift, mass effect, intracranial hemorrhage, or hydrocephalus is evident. The cerebellopontine angles, cerebellum, and brainstem have an unremarkable appearance. There are scattered periventricular and subcortical T2 white matter hyperintensities. At least 1 of these is oriented perpendicular to the long axis of the ventricles and is situated in the right occipital lobe. The corpus callosum, pituitary, optic chiasm, and craniocervical junction have an unremarkable appearance. No mastoid effusion or sinus air-fluid level. The patient's previous exam of 07/25/2010 is not available for comparison. If there are copies of that exam available then would suggest submitting them so we can make a comparison and then at an addendum IMPRESSION: 1. Scattered periventricular and subcortical T2 white matter hyperintensities as described above. The differential diagnosis would include ischemic gliotic change from microvascular disease, multiple sclerosis, or migraine headache. This is somewhat more prominent than what 1 would expect for ischemic gliotic changes for patient of this age unless there has been longstanding hypertension or diabetes. At least 1 of these lesions appears perpendicular to the long axis of the lateral ventricles and could represent a Rm's finger which is seen with multiple sclerosis. Please correlate with appropriate clinical parameters. Neurology consult may be of further value. 2. No acute infarction 3. The patient's previous exam of 07/25/2010 is not available for comparison. If there are copies of that exam available then would suggest submitting them so we can make a comparison and then at an addendum Dictated by: Gonzalo Peña MD 07/26/2019 15:52 Electronically signed by Gonzalo Peña MD in [place] 07/26/2019 15:53
== END ==
PROVIDERS: PCP Emergency Medicine; Visit Provider Nurse Practitioner Family
DX: R42 Dizziness and giddiness (principal)
CPT/HCPCS: 70551

== ENCOUNTER → 2019-09-11 13:32 | Outpatient (CLI) | payer SELFPAY ==
--- NOTE | 2019-09-11 13:33 | CT_ITS ---
PROCEDURE: CT CHEST WO CON CLINICAL INDICATION: 6 mth f/u due aug 2019 Follow-up pulmonary nodules, tobacco use, smoker COMPARISON: ABDPELW/O CT ABD PELVIS W/O CONTRAST from 05/20/[address] cervical spine wo con from 02/16/2019 TECHNIQUE: Axial images obtained with sagittal and coronal reformats. All CT scans at the facility use one or more dose reduction, viz: automated exposure control, ma/kV adjustment per patient size (including targeted exams where dose is matched to indication, i.e. head), or iterative reconstruction technique. FINDINGS: HEART AND MEDIASTINAL STRUCTURES: There is slight infiltration of the anterior mediastinal fat nonspecific. There are few scattered small mediastinal lymph nodes. Coronary artery calcifications are also present and there is minimal thickening of the pericardium anteriorly. LUNGS AND PLEURAL SPACES: The there are at least 4 noncalcified nodules in the right upper lobe which are 3 mm. Previously noted nodular opacity in the right upper lobe posteriorly is somewhat less apparent measuring approximately 4 x 1 mm. A fissural nodules present in the right minor fissure at 5 mm. There is a 6 mm nodule in the right lower lobe superiorly. No effusions or infiltrates. No central bronchial lesions. There is calcified granuloma in the left lower lobe BONY STRUCTURES: No acute bony abnormalities apparent. UPPER ABDOMEN: Fatty liver ADDITIONAL FINDINGS: No other significant abnormalities. IMPRESSION: There are scattered small right-sided pulmonary nodules. No change in the upper lobe pulmonary nodules. There is a 6 mm noncalcified nodule in the right lower lobe. This area was not previously imaged. These are probably benign. Continued six-month follow-up suggested. Coronary artery calcifications. There is some nonspecific thickening of the anterior mediastinal fat Dictated by: Gonzalo Peña MD 09/13/2019 10:13 Electronically signed by Gonzalo Peña MD in [place] 09/13/2019 10:13
== END ==
PROVIDERS: PCP Nurse Practitioner Family; Visit Provider Physician Assistant
DX: R91.1 Solitary pulmonary nodule (principal)
CPT/HCPCS: 71250

== ENCOUNTER → 2019-09-19 13:28 | Outpatient (CLI) | payer SELFPAY | PROVIDERS: PCP Emergency Medicine; Visit Provider Physician Assistant | DX: E78.5 Hyperlipidemia, unspecified (principal); I10 Essential (primary) hypertension; R55 Syncope and collapse | CPT/HCPCS: 93306 ==

== ENCOUNTER → 2019-09-20 13:13 | Outpatient (CLI) | payer SELFPAY ==
[2019-09-20 14:46] LABS: Blood Urea Nitrogen 13 mg/dl (7-17); Calcium 9.7 mg/dl (8.4-10.2); Carbon Dioxide 26 mmol/L (22.0-30.0); Chloride 95 mmol/L (98-107); Estimated Glomerular Filt Rate 89 ml/min (>60); GFR (African American) 108 ML/MIN (>60); Glucose 341 mg/dl (74-100); Sodium 135 mmol/L (136-145)
[2019-09-20 15:01] LABS: Anion Gap 18.1 mEq/L (5-15); Potassium 4.1 mmoL/L (3.5-5.1)
== END ==
PROVIDERS: Visit Provider Physician Assistant
DX: E78.5 Hyperlipidemia, unspecified (principal); I10 Essential (primary) hypertension; R06.00 Dyspnea, unspecified; R07.9 Chest pain, unspecified; R55 Syncope and collapse; R94.31 Abnormal electrocardiogram [ECG] [EKG]; Z72.0 Tobacco use
CPT/HCPCS: 36415; 80048

== ENCOUNTER → 2019-10-02 13:59 | Outpatient (CLI) | payer SELFPAY ==
[2019-10-02 14:14] LABS: Alanine Aminotransferase 24 U/L (12-78); Albumin/Globulin Ratio 1.4 (1.1-1.8); Alkaline Phosphatase 132 U/L (38-126); Amylase 93 U/L (30-110); Anion Gap 15.2 mEq/L (5-15); Aspartate Amino Transferase 22 U/L (14-36); Bilirubin,Total 0.4 mg/dl (0.2-1.3); Blood Urea Nitrogen 9 mg/dl (7-17); Calcium 9.2 mg/dl (8.4-10.2); Carbon Dioxide 22 mmol/L (22.0-30.0); Chloride 102 mmol/L (98-107); Estimated Glomerular Filt Rate 106 ml/min (>60); GFR (African American) 129 ML/MIN (>60); Globulin 2.8 g/dL (1.3-3.2); Glucose 273 mg/dl (74-100); Lipase 458 U/L (23-300); Potassium 4.2 mmoL/L (3.5-5.1); Sodium 135 mmol/L (136-145); Total Protein,Serum 6.8 g/dl (6.3-8.2)
[2019-10-02 14:26] LABS: Basophils # 0.1 K/mm3 (0-0.2); Basophils % 0.7 % (0.1-2.0); Eosinophils # 0.2 K/mm3 (0.0-0.4); Hematocrit 45.4 % (37.0-47.0); Hemoglobin 14.4 g/dL (12.2-16.2); Lymphocytes # 3.6 K/mm3 (0.7-4.5); Lymphocytes % 30.5 % (10-50); Mean Corpuscular HGB Conc 31.7 g/dL (31.8-35.4); Mean Corpuscular Hemoglobin 29.2 pg (27.0-31.2); Mean Corpuscular Volume 92.2 fl (81-99); Mean Platelet Volume 10.1 fl (7.4-10.4); Monocytes # 0.5 K/mm3 (0.1-1.0); Monocytes % 4.4 % (1.7-9.3); Neutrophils # 7.5 K/mm3 (1.8-7.8); Neutrophils % 62.4 % (37.0-80.0); Platelet Count 300 K/mm3 (142-424); Red Blood Count 4.92 M/mm3 (4.20-5.40); Red Cell Distribution Width 13.1 % (11.5-17.5)
[2019-10-02 15:37] LABS: Hemoglobin A1C 7.6 % (4.0-6.0)
== END ==
PROVIDERS: Visit Provider Emergency Medicine
DX: R10.9 Unspecified abdominal pain (principal); E11.9 Type 2 diabetes mellitus without complications; Z79.84 Long term (current) use of oral hypoglycemic drugs
CPT/HCPCS: 80053; 82150; 83036; 83690; 85025

== ENCOUNTER → 2019-10-04 12:09 | Outpatient (CLI) | payer SELFPAY ==
[2019-10-04 13:09] LABS: Lipase 335 U/L (23-300)
== END ==
PROVIDERS: Visit Provider Emergency Medicine
DX: K85.90 Acute pancreatitis without necrosis or infection, unspecified (principal)
CPT/HCPCS: 36415; 83690

== ENCOUNTER 2019-10-11 01:33 | Observation (INO) ==
[2019-10-11 01:53] LABS: Microscopic, Urine URINE MICROSCOPIC (MICROSCOPIC)
[2019-10-11 01:59] LABS: Appearance,Urine CLEAR (Clear); Bilirubin,Urine Negative (Negative); Blood, Urine Negative (Negative); Color,Urine YELLOW (Yellow); Glucose,Urine (UA) 1+ (Negative); Ketones,Urine Negative (Negative); Leukocyte Esterase,Urine Negative (Negative); Protein,Urine Negative (Negative); Urobilinogen,Urine 0.2 EU/dl (0.2)
[2019-10-11 01:59] LABS: Basophils # 0.1 K/mm3 (0-0.2); Basophils % 0.8 % (0.1-2.0); Eosinophils # 0.3 K/mm3 (0.0-0.4); Eosinophils % 2.2 % (0.1-12.0); Hemoglobin 15.4 g/dL (12.2-16.2); Lymphocytes # 5.1 K/mm3 (0.7-4.5); Lymphocytes % 37.5 % (10-50); Mean Corpuscular HGB Conc 32.7 g/dL (31.8-35.4); Mean Corpuscular Volume 91.6 fl (81-99); Mean Platelet Volume 8.5 fl (7.4-10.4); Monocytes # 0.8 K/mm3 (0.1-1.0); Neutrophils # 7.3 K/mm3 (1.8-7.8); Neutrophils % 53.5 % (37.0-80.0); Platelet Count 330 K/mm3 (142-424); Red Blood Count 5.12 M/mm3 (4.20-5.40); Red Cell Distribution Width 13.1 % (11.5-17.5); White Blood Count 13.6 K/mm3 (4.8-10.8)
[2019-10-11 02:04] LABS: Albumin Level 4.6 g/dl (3.5-5.0); Albumin/Globulin Ratio 1.4 (1.1-1.8); Bilirubin,Total 0.3 mg/dl (0.2-1.3); Calcium 10.1 mg/dl (8.4-10.2); Globulin 3.3 g/dL (1.3-3.2); Total Protein,Serum 7.9 g/dl (6.3-8.2)
[2019-10-11 02:12] LABS: Bacteria,Urine Trace /lpf; Squamous Epithelial Cell,Urine Occasional #/hpf (0-5); WBC,Urine Occasional #/hpf (0-3)
--- NOTE | 2019-10-11 03:03 | Emergency Department Note ---
ED Disposition Clinical Impression: Obesity (BMI 30.0-34.9), Uncontrolled hypertension, Tobacco use, SIRS (systemic inflammatory response syndrome), Esophagitis Pancreatitis, acute Qualifiers: Pancreatitis type: unspecified pancreatitis type Acute pancreatitis complication: no infection or necrosis Qualified Code(s): K85.90 - Acute pancreatitis without necrosis or infection, unspecified Diabetes mellitus Qualifiers: Diabetes mellitus type: type 2 Diabetes mellitus shelter insulin use: unspecified shelter insulin use status Diabetes mellitus complication status: with other specified complication Qualified Code(s): E11.69 - Type 2 diabetes mellitus with other specified complication Disposition: Admitted as Observation Condition on Discharge: Fair Instructions: DI for Acute Abdomen Referrals: Naif Childress MD [Primary Care Provider] - - Critical Care Critical Care Time: No Attestation: On 10/11/19, the high probability of a clinically significant, sudden or life threatening deterioration of the following system(s) required my full and direct attention, intervention and personal management. The time I documented below is in addition to time spent performing reported procedures but includes the following listed in this critical care notation. Medical Decision Making - Medical Records Medical records reviewed: Yes: I reviewed the patient's medical records. - Blake Inquiry Pt receiving controlled substance: No Vital Signs: 10/11/19 01:41 Temperature 99.4 F Temperature Source Oral Pulse Rate [Right Brachial] 106 H Respiratory Rate 18 Blood Pressure [Right Arm] 190/108 H Blood Pressure Mean [Right Arm] 135 Blood Pressure Source [Right Arm] Automatic Cuff Blood Pressure Position [Right Arm] Sitting 02 Sat by Pulse Oximetry 96 Oxygen Delivery Method Room Air - Lab Data Lab results reviewed: Yes: I reviewed the patient's lab results. Lab Results 10/11/19 01:30: Urine Color Yellow, Urine Appearance Clear, Urine pH 6.0, Ur Specific [place] 1.010, Urine Protein Negative, Urine Glucose (UA) 1+, Urine Ketones Negative, Urine Blood Negative, Urine Nitrate Negative, Urine Bilirubin Negative, Urine Urobilinogen 0.2, Ur Leukocyte Esterase Negative, Urine WBC Occasional, Ur Squamous Epith Cells Occasional, Urine Bacteria Trace 10/11/19 01:30: Urine HCG, Qual Negative 10/11/19 01:50: WBC 13.6 H, RBC 5.12, Hgb 15.4, Hct 47.0, MCV 91.6, MCH 30.0, MCHC 32.7, RDW 13.1, Plt Count 330, MPV 8.5, Neut % (Auto) 53.5, Lymph % (Auto) 37.5, [place] % (Auto) 6.0, Eos % (Auto) 2.2, Baso % (Auto) 0.8, Neut # (Auto) 7.3, Lymph # (Auto) 5.1 H, [place] # (Auto) 0.8, Eos # (Auto) 0.3, Baso # (Auto) 0.1 10/11/19 01:50: Sodium 134 L, Potassium 4.0, Chloride 98, Carbon Dioxide 25, Anion Gap 15.0, BUN 8, Creatinine 0.60, Estimated Creat Clear 146, Estimated GFR 106, Est GFR ( Amer) 129, Glucose 298 H, Calcium 10.1, Total Bilirubin 0.3, AST 27, ALT 32, Alkaline Phosphatase 129 H, Total Protein 7.9, Albumin 4.6, Globulin 3.3 H, Albumin/Globulin Ratio 1.4, Amylase 130 H, Lipase 531 H 10/11/19 01:55: Troponin I < 0.01 Result diagrams: 10/11/19 01:50 10/11/19 01:50 Orders (Tests/Meds): ED MEDICATIONS Generic Name Dose Route Start Last Admin Trade Name Freq PRN Reason Stop Dose Admin Famotidine 20 mg 10/11/19 03:44 Pepcid 20mg/2ml Vial IV 10/11/19 03:45 ONCE ONE Hydromorphone HCl 1 mg 10/11/19 03:45 Dilaudid 2mg/Ml Syringe IV 10/11/19 03:46 ONCE ONE Sodium Chloride 1,000 mls @ 999 mls/hr 10/11/19 03:00 10/11/19 02:56 Sod Chlor 0.9% 1000ml Bag IV 10/11/19 04:00 999 mls/hr .Q1H1M YASMIN Administration Metoclopramide HCl 10 mg 10/11/19 03:44 Reglan 10mg/2ml Vial IVP 10/11/19 03:45 ONCE ONE Sodium Chloride 8 ml 10/11/19 03:44 Sodium Chloride 0.9% 10ml Vial IV 11/10/19 03:43 NEEDED PRN dilute pepcid Discontinued Medications Generic Name Dose Route Start Last Admin Trade Name Freq PRN Reason Stop Dose Admin Ketorolac Tromethamine 30 mg 10/11/19 02:52 10/11/19 02:56 Toradol 30mg/Ml Vial IV 10/11/19 02:53 30 mg ONCE ONE Administration ORDERS Category Date Time Status CT abdomen pelvis w con Stat Cat Scan 10/11/19 01:42 Ordered XR chest 2V Stat Exams 10/11/19 02:02 Ordered Troponin I Q3H Lab 10/11/19 05:15 Ordered Troponin I Q3H Lab 10/11/19 08:15 Ordered - Radiology Data #1 Image(s): Chest Image Reviewed: Yes I reviewed the patient's radiology image Preliminary Findings: Normal/NAD - CT Data CT Scan: Abdomen, Pelvis Time Received: 03:[address] Reviewed: Yes: I have viewed the radiologist's interpretation Preliminary Findings: Abnormal (nonspecific ) - ECG Data Tracing #1 Normal Sinus Rhythm: Yes Ischemic changes: non-specific ST-T wave changes Nausea/Vomiting/Diarrhea HPI - General Chief complaint: Abdominal Pain Stated complaint: lower Abdominal pain into back Time Seen by Provider: 10/11/19 02:00 Mode of Arrival: Family Vehicle Source of Information: Patient, Medical Record Limitations: No Limitations Description of Symptoms (Recalled from ER Triage Doc. by RN): upper abd pain r/t to pancreatitis she states won't go away despite taking prescribed meds - History of Present Illness HPI Narrative: upper abd pain with rad to back - no relief with home meds - pt was seen by pcp and trial of meds but has ongoing pain with dec po intake - pt has diabetes MD complaint: nausea, vomiting, abdominal pain Onset (ago): day(s) Associated Abdominal Pain: Yes Location of pain: epigastric Severity: moderate Quality: sharp Consistency: colicky Associated symptoms: denies other symptoms - Related Data Home Medications Medication Instructions Recorded Confirmed Cetirizine HCl 10 mg PO DAILY 07/06/19 10/11/19 Trazodone HCl 50 mg PO HSP PRN 07/07/19 10/11/19 Dicyclomine HCl [Bentyl 10mg 10 mg PO BID 10/11/19 10/11/19 capsule] Metformin HCl [Glucophage] 1,000 mg PO BID 10/11/19 10/11/19 Metoclopramide HCl [Metoclopramide 10 mg PO TID 10/11/19 10/11/19 10mg Tablet] carvediloL [Carvedilol 6.25mg Tab] 6.25 mg PO BID 10/11/19 10/11/19 glipiZIDE [Glucotrol] 5 mg PO QDAY 10/11/19 10/11/19 hydroCHLOROthiazide [HCTZ 25mg 25 mg PO DAILY 10/11/19 10/11/19 tab] lisinopriL [Prinivil 20mg Tablet] 20 mg PO BID 10/11/19 10/11/19 Previous Rx's Medication Instructions Recorded ergocalciferol (vitamin D2) 1,250 50,000 unit PO WEEKLY #12 cap 07/24/19 mcg (50,000 unit) capsule atorvastatin 40 mg tablet 40 mg PO HS #90 tab 08/02/19 bupropion HCl 75 mg tablet 75 mg PO BID 90 Days #180 tab 08/03/19 estradiol 2 mg tablet 2 mg PO DAILY #90 tab 08/14/19 linagliptin 5 mg tablet 5 mg PO DAILY #90 tab 08/14/19 gemfibrozil 600 mg tablet 600 mg PO BID #180 tab 08/17/19 omeprazole 20 mg capsule,delayed 40 mg PO DAILY #60 cap 10/02/19 release Allergies Allergy/AdvReac Type Severity Reaction Status Date / Time codeine [CODEINE] Allergy Unknown I-HIVES Verified 10/02/19 09:27 [facility] History - Hepatitis A Screen Drug use history?: No High risk sexual behaviors?: No History of sexually transmitted infection?: No Currently employed?: No Childcare worker?: No Do you have indoor plumbing?: Yes Do you have electricity?: Yes Attestation statement:: This patient has been screened for Hepatitis A risk factors. I have reviewed the patient's past medical history: Yes 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: Reports:: Diabetes Mellitus Type 2, Gastroesophageal Reflux Disease(GERD), Hyperlipidemia, Hypertension Denies:: Diabetes Mellitus Type 1 Other 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: Reports: Anemia, Cataracts, Hormone Therapy Laterality Cases: Bilateral: Tonsillectomy Other Surgeries: Yes: No Previous Surgery, Cholecystectomy, Hysterectomy-Total, Tubal Ligation, Other Amputation: No Fractures: No - Social History Smoking Status: Current every day smoker Tobacco Type: cigarettes # Packs/Day (cigarettes): 1 Alcohol Intake: never Alcohol Intake Frequency:: other Substance Use Type: denies use Occupational Status: employed Housing: house Household Members: none Family Hx:: Cancer, Diabetes, Stroke, Coronary Artery Disease, Heart Attack Comment: Father- of [place]@50 ROS Obtained: Yes All systems reviewed & no additional complaints - Constitutional Constitutional: Denies fever(s) - Eyes Eyes: Denies change in vision - ENT Ears, Nose, Mouth, and Throat: Denies sore throat - Cardiovascular Cardiovascular: Denies chest pain, Denies dyspnea - Respiratory Respiratory: No cough - Gastrointestinal Gastrointestingal: Reports: as per HPI, abdominal pain, nausea, vomiting. [place] es: diarrhea - Genitourinary Female Genitourinary: Denies hematuria - Musculoskeletal Musculoskeletal: Denies joint pain, Denies joint swelling - Integumentary/Breasts Skin/Breast: Denies rash - Neurologic Neurologic: Denies seizure-like activity Physical Exam - General General appearance: alert, obese - Head Head exam: normocephalic - Eye Eye exam: Present: PERRL, EOMI. Absent: scleral icterus - ENT ENT exam: Present: mucous membranes dry - Neck Neck exam: Present: trachea midline - Respiratory Respiratory exam: Present: normal lung sounds bilaterally. Absent: respiratory distress - Cardiovascular Cardiovascular exam: Present: regular rate, systolic murmur - Abdominal Exam Abdominal exam: Present: soft, tenderness. Absent: guarding, rebound, rigidity Abdominal tenderness: Present: epigastrium, moderate - Extremities Exam Extremities exam: Present: full ROM - Neurological Exam Neurological exam: Present: alert, oriented X3, CN II-XII intact - Psychiatric Psychiatric exam: Present: normal affect - Skin Skin exam: Absent: rash
[2019-10-11 06:18] LABS: Chol/HDL Ratio 4.4 (1-3.5)
--- NOTE | 2019-10-11 07:25 | Pharmacy Consult Notes ---
[facility] Pharmacy VTE Monitoring - Patient Demographics Admission date: 10/11/19 Report Date: 10/11/19 Time: 07:25 Allergies/Adverse Reactions: Patient Allergies codeine [CODEINE] Allergy (Unknown, Verified 10/02/19 09:27) WES Height: 1.65 m Weight: 81.391 kg Patient Problems: Current Active Problems (Last Updated 09/26/17 @ 13:10 by ADAM Landeros) Pancreatitis, acute (Acute) SIRS (systemic inflammatory response syndrome) (Acute) Esophagitis (Acute) Uncontrolled hypertension (Acute) Tobacco use (Acute) Obesity (BMI 30.0-34.9) (Acute) Diabetes mellitus (Chronic) - VTE Risk Labs: VTE Related Lab Results Hgb 15.4 g/dL (12.2-16.2) 10/11/19 01:50 Hct 47.0 % (37.0-47.0) 10/11/19 01:50 Plt Count 330 K/mm3 (142-424) 10/11/19 01:50 BUN 8 mg/dl (7-17) 10/11/19 01:50 Creatinine 0.60 mg/dl (0.52-1.04) 10/11/19 01:50 Estimated Creat Clear 146 mL/min (50-200) 10/11/19 01:50 Was VTE Risk Assessment Performed: Yes VTE Score: 5 VTE Risk Level: Low Risk - Prophylaxis VTE Prophylaxis Ordered?: Yes Types of VTE Prophylaxis: TEDS Knee High Location of Applied Device: Bilateral Lower Extremeties - VTE Diagnosis Confirmed Treatment or plan recommended: Continue Current Treatment
--- NOTE | 2019-10-11 08:42 | History & Physical Report ---
*Admission Date: 10/11/19 *Chief complaint: abd pain *History of present illness: 49 yr od female presents for upper abd pain with rad to back - no relief with home meds - pt was seen by pcp and trial of meds but has ongoing pain with dec po intake. Pt states abd pain has worsened over the past week. Pt admitted for iv fluids,pain control and monitor of labs. Pt will remain npo. [facility] History I have reviewed the patient's past medical history: Yes 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: Reports:: Diabetes Mellitus Type 2, Gastroesophageal Reflux Disease(GERD), Hyperlipidemia, Hypertension, Palpitations Denies:: Cancer, Diabetes Mellitus Type 1, MRSA *Have you ever received a pneumonia vaccine?: No *Have you received a flu vaccine this season?: Yes Other 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: Reports: Anemia, Cataracts, Hormone Therapy Laterality Cases: Bilateral: Tonsillectomy Other Surgeries: Yes: No Previous Surgery, Cardiac Catheterization, Cholec ystectomy, Colonoscopy, EGD, Hysterectomy-Total, Tubal Ligation, Other Amputation: No Fractures: No - *Social History Educational Level: Attended College Smoking Status: Current every day smoker Tobacco Type: cigarettes # Packs/Day (cigarettes): 1 Alcohol Intake: never Alcohol Intake Frequency:: other Substance Use Type: denies use *Occupational Status:: unemployed Housing: house Household Members: none *Travel in the last 8 weeks: None Family Hx:: Cancer, Coronary Artery Disease, Diabetes, Heart Attack, Hyperlipidemia, Hypertension, Mental illness, Other Review of Systems - Review of Systems Review of systems:: pertinent systems reviewed and negative unless documented below - Constitutional Denies body ache(s), Denies lack of energy - Eyes Denies change in vision - ENT Denies bleeding gums, Denies sinus pain - *Cardiovascular Denies chest pain at rest, Denies leg sores - *Respiratory Denies chest congestion, Denies shortness of breath - *Gastrointestinal Reports abdominal pain, Reports cramping, Reports nausea - *Genitourinary Denies abnormal vaginal bleeding, Denies urinary incontinence - *Musculoskeletal Denies limited joint movement - Integumentary/Breasts Denies rash - *Neurologic Denies abnormal hearing, Denies seizure-like activity - Psychiatric Denies behavioral changes - Endocrine Denies flushing - Hematologic/Lymphatic Denies enlarged lymph nodes - Allergic/Immunologic Denies itchy eyes Meds Home Medications Medication Instructions Recorded Confirmed Type Cetirizine HCl 10 mg PO DAILY 07/06/19 10/11/19 History Trazodone HCl 50 mg PO HSP PRN 07/07/19 10/11/19 History ergocalciferol (vitamin D2) 1,250 50,000 unit PO WEEKLY #12 cap 07/24/19 10/11/19 Rx mcg (50,000 unit) capsule atorvastatin 40 mg tablet 40 mg PO HS #90 tab 08/02/19 10/11/19 Rx bupropion HCl 75 mg tablet 75 mg PO BID 90 Days #180 tab 08/03/19 10/11/19 Rx estradiol 2 mg tablet 2 mg PO DAILY #90 tab 08/14/19 10/11/19 Rx linagliptin 5 mg tablet 5 mg PO DAILY #90 tab 08/14/19 10/11/19 Rx gemfibrozil 600 mg tablet 600 mg PO BID #180 tab 08/17/19 10/11/19 Rx omeprazole 20 mg capsule,delayed 40 mg PO DAILY #60 cap 10/02/19 10/11/19 Rx release Dicyclomine HCl [Bentyl 10mg 10 mg PO BID 10/11/19 10/11/19 History capsule] Metformin HCl [Glucophage] 1,000 mg PO BID 10/11/19 10/11/19 History Metoclopramide HCl [Metoclopramide 10 mg PO TID 10/11/19 10/11/19 History 10mg Tablet] carvediloL [Carvedilol 6.25mg Tab] 6.25 mg PO BID 10/11/19 10/11/19 History glipiZIDE [Glucotrol] 5 mg PO DAILY 10/11/19 10/11/19 History hydroCHLOROthiazide [HCTZ 25mg 25 mg PO DAILY 10/11/19 10/11/19 History tab] lisinopriL [Prinivil 20mg Tablet] 20 mg PO BID 10/11/19 10/11/19 History Allergies Allergy/AdvReac Type Severity Reaction Status Date / Time codeine [CODEINE] Allergy Unknown I-HIVES Verified 10/02/19 09:27 Exam Vital signs and Labs for Last 24 Hours: Temp Pulse Resp BP Pulse Ox 97.6 F 80 18 170/101 H 96 10/11/19 04:53 10/11/19 05:05 10/11/19 04:53 10/11/19 04:53 10/11/19 06:14 Laboratory Results - last 24 hr 10/11/19 01:30: Urine Color Yellow, Urine Appearance Clear, Urine pH 6.0, Ur Specific [place] 1.010, Urine Protein Negative, Urine Glucose (UA) 1+, Urine Ketones Negative, Urine Blood Negative, Urine Nitrate Negative, Urine Bilirubin Negative, Urine Urobilinogen 0.2, Ur Leukocyte Esterase Negative, Urine WBC Occasional, Ur Squamous Epith Cells Occasional, Urine Bacteria Trace 10/11/19 01:30: Urine HCG, Qual Negative 10/11/19 01:50: WBC 13.6 H, RBC 5.12, Hgb 15.4, Hct 47.0, MCV 91.6, MCH 30.0, MCHC 32.7, RDW 13.1, Plt Count 330, MPV 8.5, Neut % (Auto) 53.5, Lymph % (Auto) 37.5, [place] % (Auto) 6.0, Eos % (Auto) 2.2, Baso % (Auto) 0.8, Neut # (Auto) 7.3, Lymph # (Auto) 5.1 H, [place] # (Auto) 0.8, Eos # (Auto) 0.3, Baso # (Auto) 0.1 10/11/19 01:50: Sodium 134 L, Potassium 4.0, Chloride 98, Carbon Dioxide 25, Anion Gap 15.0, BUN 8, Creatinine 0.60, Estimated Creat Clear 146, Estimated GFR 106, Est GFR ( Amer) 129, Glucose 298 H, Calcium 10.1, Total Bilirubin 0.3, AST 27, ALT 32, Alkaline Phosphatase 129 H, Total Protein 7.9, Albumin 4.6, Globulin 3.3 H, Albumin/Globulin Ratio 1.4, Amylase 130 H, Lipase 531 H 10/11/19 01:55: Troponin I < 0.01 10/11/19 05:09: POC Glucose 263 H 10/11/19 05:58: Troponin I < 0.01 10/11/19 05:58: Magnesium 1.3 L, Triglycerides 310 H, Cholesterol 135 L, LDL Cholesterol Direct 72.16 L, VLDL Cholesterol 62 H, HDL Cholesterol 31 L, Cholesterol/HDL Ratio 4.4 H I & O for Last 24 hours: Intake & Output 10/08/19 10/09/19 10/10/19 10/11/19 11:59 11:59 11:59 11:59 Intake Total 1000 / 1000 Balance 1000 / 1000 Weight 179 lb 7 oz - Constitutional no acute distress - *Routine HEENT Exam Head: Present: normocephalic Eye: Present: PERRL ENT: Present: mucous membranes moist - *Routine Neck Exam Present: supple. Absent: lymphadenopathy - *Routine Respiratory Exam Present: CTA bilaterally - *Routine Cardiovascular Exam Present: RRR - *Routine Abdominal Exam Present: soft, normoactive bowel sounds, tenderness - *Routine Extremities Exam Absent: cyanosis, clubbing, edema - *Routine Skin Exam Present: warm. Absent: rash - *Routine Neurological Exam Present: alert, oriented X3 - Routine Psychiatric Exam Present: normal affect Assessment and Plan (1) Pancreatitis, acute Current visit: Yes Status: Acute Qualifiers: Pancreatitis type: unspecified pancreatitis type Acute pancreatitis complication: no infection or necrosis Qualified Code(s): K85.90 - Acute pancreatitis without necrosis or infection, unspecified Category: Medical Code(s): K85.90 - Acute pancreatitis without necrosis or infection, unspecified IV fluids, rest gut, pain control (2) Diabetes mellitus Current visit: Yes Status: Chronic Qualifiers: Diabetes mellitus type: type 2 Diabetes mellitus care home insulin use: unspecified care home insulin use status Diabetes mellitus complication status: with other specified complication Qualified Code(s): E11.69 - Type 2 diabetes mellitus with other specified complication Category: Medical Code(s): E11.9 - Type 2 diabetes mellitus without complications (3) Abdominal pain Current visit: No Status: Acute Category: Medical Code(s): R10.9 - Unspecified abdominal pain (4) Hypertension Current visit: No Status: Acute Qualifiers: Hypertension type: essential hypertension Qualified Code(s): I10 - Essential (primary) hypertension Category: Medical Code(s): I10 - Essential (primary) hypertension - Assessment and plan all Dx Assessment and Plan for all problems:: rounded with dr murguia all orders per dr murguia
--- NOTE | 2019-10-11 16:36 | Electrocardiograph Report ---
APPROVED REPORT Exam: Resting ECG HR:94 bpm ECG Measurements Heart Rate 94 AXES W[place] 136 P 38 QRSd 76 QRS 20 QT 360 T67 QTc 450 <Conclusion> Normal sinus rhythm Possible Anterior infarct, age undetermined Abnormal ECG Electronically signed by : Mayito Wray, 10/11/2019 16:36:00
[2019-10-11 18:20] LABS: Amylase 90 U/L (30-110)
[2019-10-12 06:29] LABS: Basophils # 0.1 K/mm3 (0-0.2); Basophils % 0.7 % (0.1-2.0); Eosinophils # 0.2 K/mm3 (0.0-0.4); Eosinophils % 2.4 % (0.1-12.0); Hemoglobin 13.7 g/dL (12.2-16.2); Lymphocytes # 3.7 K/mm3 (0.7-4.5); Lymphocytes % 42.4 % (10-50); Mean Corpuscular HGB Conc 31.9 g/dL (31.8-35.4); Mean Corpuscular Volume 92.3 fl (81-99); Mean Platelet Volume 8.2 fl (7.4-10.4); Monocytes # 0.4 K/mm3 (0.1-1.0); Monocytes % 4.9 % (1.7-9.3); Neutrophils # 4.4 K/mm3 (1.8-7.8); Neutrophils % 49.5 % (37.0-80.0); Platelet Count 294 K/mm3 (142-424); Red Blood Count 4.66 M/mm3 (4.20-5.40); Red Cell Distribution Width 12.9 % (11.5-17.5); White Blood Count 8.8 K/mm3 (4.8-10.8)
[2019-10-12 06:36] LABS: Anion Gap 12.8 mEq/L (5-15)
[2019-10-12 07:14] LABS: Calcium 8.4 mg/dl (8.4-10.2)
--- NOTE | 2019-10-12 08:34 | Discharge Summary ---
General - General Admission date:: 10/11/19 Discharge date: 10/12/19 HPI HPI: 49 yr od female presents for upper abd pain with rad to back - no relief with home meds - pt was seen by pcp and trial of meds but has ongoing pain with dec po intake. Pt states abd pain has worsened over the past week. Pt admitted for iv fluids,pain control and monitor of labs. Pt will remain npo. Hospital Course Hospital Course: ct abd:FINDINGS: LOWER THORAX: There is a calcified granuloma in the left lung base. There is an approximately 4 millimeter thick pericardial effusion over the right anterior heart border. ABDOMEN & PELVIS: The liver, spleen, pancreas, adrenal glands, and kidneys show no acute finding. There is diffuse fatty infiltration of the liver. Multiple calcified splenic granulomas are noted. There is some cortical scarring of the left kidney which is atrophic with cortical thinning. This has occurred since the previous exam. There is no renal obstruction. Renovascular disease is suspected. Postsurgical change from cholecystectomy is noted. No intestinal obstruction or free air. No evidence of appendicitis or diverticulitis. No pelvic mass, abnormal fluid collection, or focal inflammatory change of the pelvis. No acute bony anomalies. A small fat containing ventral hernia is noted in the periumbilical region. There is moderate atherosclerosis of the aortoiliac vessels and renal vessels.. IMPRESSION: No acute intra-abdominal/pelvic findings. Trace pericardial effusion Atherosclerosis. Fatty infiltrated liver status post cholecystectomy Interval development of cortical scarring and atrophy left kidney. chest x ray: IMPRESSION: No acute findings. Abnormal Labs 10/11/19 10/11/19 10/11/19 01:50 01:50 05:09 WBC 13.6 H Lymph # (Auto) 5.1 H Sodium 134 L BUN Creatinine Glucose 298 H POC Glucose 263 H Magnesium Alkaline Phosphatase 129 H Globulin 3.3 H Triglycerides Cholesterol LDL Cholesterol Direct VLDL Cholesterol HDL Cholesterol Cholesterol/HDL Ratio Amylase 130 H Lipase 531 H 10/11/19 10/11/19 10/11/19 05:58 11:43 16:49 WBC Lymph # (Auto) Sodium BUN Creatinine Glucose POC Glucose 139 H 181 H Magnesium 1.3 L Alkaline Phosphatase Globulin Triglycerides 310 H Cholesterol 135 L LDL Cholesterol Direct 72.16 L VLDL Cholesterol 62 H HDL Cholesterol 31 L Cholesterol/HDL Ratio 4.4 H Amylase Lipase 10/11/19 10/12/19 10/12/19 20:33 05:34 06:14 WBC Lymph # (Auto) Sodium BUN 5 L D Creatinine 0.50 L Glucose 200 H POC Glucose 181 H 212 H Magnesium Alkaline Phosphatase Globulin Triglycerides Cholesterol LDL Cholesterol Direct VLDL Cholesterol HDL Cholesterol Cholesterol/HDL Ratio Amylase Lipase labs back to normal this am, pt states she feels better. will obtain new lipid panel, stop some home meds and try low carb/choles diet. pt to see cirilo in office next week. Objective Vital signs: Temp Pulse Resp BP Pulse Ox 97.9 F 91 H 18 182/100 H 97 10/12/19 07:39 10/12/19 07:39 10/12/19 07:39 10/12/19 07:39 10/12/19 07:39 no acute distress, obese - *Routine HEENT Exam Head: Present: normocephalic Eye: Present: PERRL ENT: Present: mucous membranes moist - *Routine Neck Exam Present: supple - *Routine Respiratory Exam Present: CTA bilaterally - *Routine Cardiovascular Exam Present: RRR - *Routine Abdominal Exam Present: soft, normoactive bowel sounds, tenderness - *Routine Extremities Exam Present: full ROM, normal capillary refill. Absent: cyanosis, clubbing, edema - *Routine Skin Exam Present: warm. Absent: rash - *Routine Neurological Exam Present: alert, oriented X3 - Routine Psychiatric Exam Present: normal affect Results Labs on day of discharge: Labs from last 24 hours 10/12/19 10/12/19 10/12/19 06:14 06:14 05:34 WBC 8.8 D RBC 4.66 Hgb 13.7 Hct 43.0 MCV 92.3 MCH 29.5 MCHC 31.9 RDW 12.9 Plt Count 294 MPV 8.2 Neut % (Auto) 49.5 Lymph % (Auto) 42.4 [place] % (Auto) 4.9 Eos % (Auto) 2.4 Baso % (Auto) 0.7 Neut # (Auto) 4.4 Lymph # (Auto) 3.7 [place] # (Auto) 0.4 Eos # (Auto) 0.2 Baso # (Auto) 0.1 Sodium 140 Potassium 3.8 Chloride 104 Carbon Dioxide 27 Anion Gap 12.8 BUN 5 L D Creatinine 0.50 L Estimated Creat Clear 178 Estimated GFR 131 Est GFR ( Amer) 159 D Glucose 200 H POC Glucose 212 H Calcium 8.4 D Troponin I Amylase 83 Lipase 228 10/11/19 10/11/19 10/11/19 20:33 18:00 16:49 WBC RBC Hgb Hct MCV MCH MCHC RDW Plt Count MPV Neut % (Auto) Lymph % (Auto) [place] % (Auto) Eos % (Auto) Baso % (Auto) Neut # (Auto) Lymph # (Auto) [place] # (Auto) Eos # (Auto) Baso # (Auto) Sodium Potassium Chloride Carbon Dioxide Anion Gap BUN Creatinine Estimated Creat Clear Estimated GFR Est GFR ( Amer) Glucose POC Glucose 181 H 181 H Calcium Troponin I Amylase 90 D Lipase 203 10/11/19 10/11/19 11:43 08:22 WBC RBC Hgb Hct MCV MCH MCHC RDW Plt Count MPV Neut % (Auto) Lymph % (Auto) [place] % (Auto) Eos % (Auto) Baso % (Auto) Neut # (Auto) Lymph # (Auto) [place] # (Auto) Eos # (Auto) Baso # (Auto) Sodium Potassium Chloride Carbon Dioxide Anion Gap BUN Creatinine Estimated Creat Clear Estimated GFR Est GFR ( Amer) Glucose POC Glucose 139 H Calcium Troponin I < 0.01 Amylase Lipase - Additional Comments rounded with dr murguia all orders per dr murguia DS: Diagnosis - Discharge Diagnosis (1) Pancreatitis, acute Status: Acute (2) Diabetes mellitus Status: Chronic (3) Abdominal pain Status: Acute (4) Hypertension Status: Acute Discharge Plan - Patient Discharge Instructions ACTIVITY: Continue current activity DIET: continue same diet Patient Instructions: DI for Pancreatitis, DI for Diabetes Type 2 - Follow up Plan Follow up with: Cirilo Bishop APRN [Nurse Practitioner] - Disposition: Home, Self-Custodial Medications: Home Medications Medication Instructions Recorded Confirmed Type Cetirizine HCl 10 mg PO DAILY 07/06/19 10/11/19 History Trazodone HCl 50 mg PO HSP PRN 07/07/19 10/11/19 History ergocalciferol (vitamin D2) 1,250 50,000 unit PO WEEKLY #12 cap 07/24/19 10/11/19 Rx mcg (50,000 unit) capsule atorvastatin 40 mg tablet 40 mg PO HS #90 tab 08/02/19 10/11/19 Rx bupropion HCl 75 mg tablet 75 mg PO BID 90 Days #180 tab 08/03/19 10/11/19 Rx estradiol 2 mg tablet 2 mg PO DAILY #90 tab 08/14/19 10/11/19 Rx linagliptin 5 mg tablet 5 mg PO DAILY #90 tab 08/14/19 10/11/19 Rx gemfibrozil 600 mg tablet 600 mg PO BID #180 tab 08/17/19 10/11/19 Rx omeprazole 20 mg capsule,delayed 40 mg PO DAILY #60 cap 10/02/19 10/11/19 Rx release Dicyclomine HCl [Bentyl 10mg 10 mg PO BID 10/11/19 10/11/19 History capsule] Metformin HCl [Glucophage] 1,000 mg PO BID 10/11/19 10/11/19 History Metoclopramide HCl [Metoclopramide 10 mg PO TID 10/11/19 10/11/19 History 10mg Tablet] carvediloL [Carvedilol 6.25mg Tab] 6.25 mg PO BID 10/11/19 10/11/19 History glipiZIDE [Glucotrol] 5 mg PO DAILY 10/11/19 10/11/19 History hydroCHLOROthiazide [HCTZ 25mg 25 mg PO DAILY 10/11/19 10/11/19 History tab] lisinopriL [Prinivil 20mg Tablet] 20 mg PO BID 10/11/19 10/11/19 History Famotidine [Pepcid 20mg Tablet] 20 mg PO DAILY 30 Days #30 tab 10/12/19 Rx [place]-3 Fatty Acids/Fish Oil [Fish 1 each PO DAILY 30 Days #30 cap 10/12/19 Rx Oil 1,000 mg Capsule] Prescriptions/Medication Reconciliation: [place]-3 Fatty Acids/Fish Oil [Fish Oil 1,000 mg Capsule] 1 each PO DAILY 30 Days #30 cap Famotidine [Pepcid 20mg Tablet] 20 mg PO DAILY 30 Days #30 tab Continued estradiol 2 mg tablet 2 mg PO DAILY #90 tab ergocalciferol (vitamin D2) 1,250 mcg (50,000 unit) capsule 50,000 unit PO WEEKLY #12 cap atorvastatin 40 mg tablet 40 mg PO HS #90 tab bupropion HCl 75 mg tablet 75 mg PO BID 90 Days #180 tab omeprazole 20 mg capsule,delayed release 40 mg PO DAILY #60 cap Cetirizine HCl 10 mg PO DAILY Metformin HCl [Glucophage] 1,000 mg PO BID lisinopriL [Prinivil 20mg Tablet] 20 mg PO BID Trazodone HCl 50 mg PO HSP PRN PRN Reason: Sleep glipiZIDE [Glucotrol] 5 mg PO DAILY carvediloL [Carvedilol 6.25mg Tab] 6.25 mg PO BID Discontinued linagliptin 5 mg tablet 5 mg PO DAILY #90 tab gemfibrozil 600 mg tablet 600 mg PO BID #180 tab hydroCHLOROthiazide [HCTZ 25mg tab] 25 mg PO DAILY Metoclopramide HCl [Metoclopramide 10mg Tablet] 10 mg PO TID Dicyclomine HCl [Bentyl 10mg capsule] 10 mg PO BID - Problem Reconciliation Problems Reviewed?: Yes
[2019-10-12 08:54] LABS: Chol/HDL Ratio 5.7 (1-3.5)
== END 2019-10-12 09:15 | disposition home or self-care (01) ==
LOC: ER 01:33 → 2ND 01:33
PROVIDERS: ADMIT Emergency Medicine; ATTEND Emergency Medicine
CPT/HCPCS: 36415; 71020; 71046; 74177; 80048; 80053; 80061; 81001; 81025; 82150; 82962; 83690; 83735; 84484; 85025; 93005; 96365; 96375; 99283; G0378; J2405; Q9967

== ENCOUNTER → 2019-11-14 11:14 | Outpatient (CLI) | payer MEDICARE, MEDICAID, SELFPAY ==
--- NOTE | 2019-11-14 11:14 | NM_ITS ---
APPROVED REPORT Exam: Nuclear Stress Test Indication: obesity, htn, d.m., hyperlipidemia, tob use, fm hx, c.p., sob, palpitations, syncope,fatigue Patient Location: Outpatient Stress Tech: April Fowlernkson OR Tech:Leilani Stewart, ARRT RT (R)(N)(M) Ht: 5 ft 4 in Wt: 180 lbs Bra Size: D HR: 81 bpm BP: 125/81 mmHg BSA: 1.87 m2 BMI: 30.8 History: obesity, htn, d.m., hyperlipidemia, tob use, fm hx, c.p., sob, palpitations, syncope,fatigue Procedure: Patient received a 0.4 mg of intravenous Lexiscan, resting heart rate 81 bpm, resting blood pressure 125/81 mmHg, with Lexiscan maximum heart rate achived was 96 bpm which is Less than 85 % of the maximum predicted heart rate and blood pressure was 139/92 mmHg. With Lexiscan, patient denied any complaint of chest pain. Electrocardiogram Resting electrocardiogram showed sinus rhythm, with Lexiscan there is less than 1.[address] segment depression noted from the baseline EKG. The EKG portion of the Lexiscan Myoview is nondiagnostic. Cardiac Stress and Resting SPECT Images: Cardiac Stress and Resting SPECT images were obtained using technetium 99m Myoview 30.4 mCi stress and 10.04 mCi at rest. Gated SPECT with analysis of segmental wall motion and calculation of the ejection fraction also done. Cardiac stress and resting SPECT images show mild fixed defect in the anterior wall with normal contracted gated SPECT is likely secondary to soft tissue attenuation, no reversible ischemia seen. Computer derived ejection fraction 63% with no regional wall motion abnormality, right ventricle is normal size and contractility. Conclusion: 1. The EKG portion of the Lexiscan Myoview is nondiagnostic. 2. No scintigraphic evidence of reversible ischemia seen, computer derived ejection fraction is 63% with no segmental wall motion abnormality, right ventricle is normal size and contractility. 3. Likely normal Lexiscan Myoview study. Electronically signed by : Cam Lewis, 11/17/2019 13:25:26
== END ==
PROVIDERS: PCP Emergency Medicine; Visit Provider Nurse Practitioner Family
DX: I10 Essential (primary) hypertension (principal); R06.00 Dyspnea, unspecified; R07.9 Chest pain, unspecified; Z72.0 Tobacco use
CPT/HCPCS: 78452; A9502

== ENCOUNTER → 2019-11-17 07:34 | Outpatient (CLI) | payer MEDICARE, MEDICAID, SELFPAY ==
--- NOTE | 2019-11-17 | CA_ITS ---
APPROVED REPORT Exam: Pharmacologic Technologist: Elizabeth Nielson, Ht: 5 ft 4 in Wt: 180 lbs BSA: 1.87 m2 HR: 81 bpm BP: 125/81 mmHg Rhythm: SINUS RHYTHM 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: HTN, Hyperlipidemia, Diabetic ??? Noninsulin, Smoking Medications: Lisinopril,,,,, Omeprazole,,,,, Metformin,,,,, Trazadone,,,,, Atorvastatin,,,,, Carvedilol,,,,, Glipizide,,,,, Estradiol,,,,, CitrIZINE,,,,, Trigenta,,,,, PURPROPION,,,,, Cardiac Risk Factors: HTN, Hyperlipidemia, Diabetes (non-insulin), FHX of CAD, Smoking Stress Test Details Test: LEXISCAN HR Resting HR: 81 bpm Max Heart Rate (APMHR): 171 bpm Max HR Achieved: 100 bpm Target HR (85% APMHR): 145 bpm % of APMHR: 58 Recovery HR: 96 bpm BP Resting BP: 125.0/81.0 mmHg Max BP: 167.0/102.0 mmHg Recovery BP: 139.0/92.0 mmHg ECG Resting ECG: SINUS RHYTHM Clinical Exercise duration: 04:00 min Highest Stage Achieved: Exercise capacity: 1.0 METs Stress ECG Conclusion LEXISCAN PORTION COMPLETED. PATIENT C/O SOA AND DIZZINESS AT PEAK INFUSION. NO CHEST PAIN. POSITIVE FOR DIZZINESS AND SOA DURING PEAK INFUSION. NO ECTOPY. LESS THAN 1.5MM ST DEPRESSION. IMAGES TO FOLLOW Test Summary RECOVERY 04:05 . . 91 . 134/ 90 . . REST 02:05 . . 81 . 125/ 81 . . Stage 1 . . . . . . . Myoview Injected Stage 1 01:00 . . 91 . . . . Stage 2 01:00 . . 99 . 117/ 85 . . Stage 3 01:00 . . 99 . 167/102 . . Stage 4 01:00 . . 97 . 157/ 99 . Stop exercise at 04:00 RECOVERY 01:00 . . 95 . 139/ 92 . . RECOVERY 02:00 . . 93 . 141/ 93 . . RECOVERY 03:00 . . 92 . 148/ 87 . . RECOVERY 04:00 . . 91 . 134/ 90 . . RECOVERY 04:05 . . 91 . 134/ 90 . . Electronically signed by : Cam Lewis, 11/17/2019 13:23:13
== END ==
PROVIDERS: PCP Emergency Medicine; Visit Provider Nurse Practitioner Family
DX: R07.9 Chest pain, unspecified (principal); R06.00 Dyspnea, unspecified; I10 Essential (primary) hypertension; Z72.0 Tobacco use
CPT/HCPCS: 93017; J2785

== ENCOUNTER → 2020-01-24 15:11 | Outpatient (POV) | payer MEDICARE, MEDICAID, SELFPAY | PROVIDERS: PCP Nurse Practitioner Family | DX: Z00.00 Encounter for general adult medical examination without abnormal findings (principal) ==

== ENCOUNTER → 2020-01-31 09:11 | Outpatient (CLI) | payer MEDICARE, MEDICAID, SELFPAY | PROVIDERS: PCP Emergency Medicine; Visit Provider Nurse Practitioner Family | DX: G47.00 Insomnia, unspecified (principal); G47.19 Other hypersomnia; I20.0 Unstable angina; R42 Dizziness and giddiness; R53.83 Other fatigue; Z68.29 Body mass index [BMI] 29.0-29.9, adult | CPT/HCPCS: 94762 ==

== ENCOUNTER → 2020-02-15 14:14 | Outpatient (CLI) | payer MEDICARE, MEDICAID, SELFPAY | PROVIDERS: PCP Emergency Medicine; Visit Provider Specialist | DX: G47.33 Obstructive sleep apnea (adult) (pediatric) (principal); R42 Dizziness and giddiness; G47.34 Idiopathic sleep related nonobstructive alveolar hypoventilation | CPT/HCPCS: G0399 ==

== ENCOUNTER → 2020-02-19 11:45 | Outpatient (CLI) | payer MEDICARE, MEDICAID, SELFPAY | PROVIDERS: Visit Provider Specialist | DX: I10 Essential (primary) hypertension (principal) | CPT/HCPCS: 36415; 82607; 82746; 84443 ==

== ENCOUNTER → 2020-02-19 12:52 | Outpatient (CLI) | payer MEDICARE, MEDICAID, SELFPAY ==
--- NOTE | 2020-02-19 12:59 | MR_ITS ---
PROCEDURE: MR CERVICAL SPINE WO CON CLINICAL INDICATION: neck pain DIZZINESS, LIGHT HEADEDNESS, POSSIBLE MS, RT SIDED NECK PAIN, BILATERAL HAND TINGLING, HEADACHES. PRIOR MRI 11/15/2014 COMPARISON: CT [facility] CT cervical spine wo con from 02/16/2019 TECHNIQUE: Standard multiplanar multiecho sequences are performed without contrast. 3-D MIP and myelographic images are also rendered and reviewed FINDINGS: There is straightening/reversal of the normal lordosis which may be due to patient positioning or muscle spasm. Craniocervical junction has an unremarkable appearance. There is normal alignment. C2-C3: Unremarkable. C3-C4: Minimal broad-based central disc protrusion which abuts the anterior aspect of the cord with only minimal cord flattening. There is narrowing of the canal at this level at 10 mm. C4-C5: Unremarkable. C5-C6: There is a small central/left paracentral disc protrusion which abuts the anterior aspect of the cord with minimal flattening anteriorly. There is narrowing of the canal at 9 mm and mild left lateral recess and foraminal narrowing. C6-C7 and C7-T1 have an unremarkable appearance. IMPRESSION: 1. C3-C4: Minimal broad-based central disc protrusion which abuts the anterior aspect of the cord with only minimal cord flattening. There is narrowing of the canal at this level at 10 mm. 2. C5-C6: There is a small central/left paracentral disc protrusion which abuts the anterior aspect of the cord with minimal flattening anteriorly. There is narrowing of the canal at 9 mm and mild left lateral recess and foraminal narrowing. 3. Straightening of cervical lordosis Dictated b Gonzalo Peña MD 02/20/2020 11:38 Gonzalo Peña MD in [facility] 02/20/2020 11:38
--- NOTE | 2020-02-19 13:50 | CT_ITS ---
PROCEDURE: CT HEAD/BRAIN WO CON CLINICAL INDICATION: headache Severe headache with blurry vision COMPARISON: CT CT HEAD/BRAIN WO CON from 07/01/2019 TECHNIQUE: Axial images obtained. All CT scans at the facility use one or more dose reduction, viz: automated exposure control, ma/kV adjustment per patient size (including targeted exams where dose is matched to indication, i.e. head), or iterative reconstruction technique. FINDINGS: No midline shift, mass effect, intracranial hemorrhage, hydrocephalus, or extra-axial fluid collection is evident. There are nonspecific periventricular areas of decreased attenuation similar to the previous exam as previously described not significantly changed. The calvarium has an unremarkable appearance. No mastoid effusion. No sinus air-fluid level. IMPRESSION: 1. No change with no acute finding. 2. Low-density changes in the periventricular region which may be due to ischemic gliotic change from microvascular disease as previously described not significantly changed Dictated b Gonzalo Peña MD 02/19/2020 15:56 Gonzalo Peña MD in [facility] 02/19/2020 15:56
[2020-02-19 14:06] LABS: Thyroid Stimulating Hormone 1.34 uIU/mL (0.465-4.68)
[2020-02-20 09:36] LABS: Folate 5.1 ng/mL (>3.0); Vitamin B12 317 pg/mL (232-1245)
== END ==
PROVIDERS: PCP Emergency Medicine; Visit Provider Specialist
DX: E11.65 Type 2 diabetes mellitus with hyperglycemia (principal); G47.00 Insomnia, unspecified; G47.19 Other hypersomnia; H53.8 Other visual disturbances; H53.9 Unspecified visual disturbance; H57.11 Ocular pain, right eye; H66.90 Otitis media, unspecified, unspecified ear; I20.0 Unstable angina; R20.0 Anesthesia of skin; R20.2 Paresthesia of skin; R42 Dizziness and giddiness; R51 Headache; R53.83 Other fatigue; R90.89 Other abnormal findings on diagnostic imaging of central nervous system; Z68.29 Body mass index [BMI] 29.0-29.9, adult; M54.2 Cervicalgia
CPT/HCPCS: 36415; 70450; 72141; 76376; 82607; 82746; 84443

== ENCOUNTER → 2020-02-20 15:36 | Outpatient (CLI) | payer MEDICARE, MEDICAID, SELFPAY ==
[2020-02-20 15:38] LABS: MANUAL DIFFERENTIAL MANUAL DIFFERENTIAL (MANUAL DIFF)
[2020-02-20 15:57] LABS: Basophils # 0.1 K/mm3 (0-0.2); Basophils % 0.7 % (0.1-2.0); Eosinophils # 0.3 K/mm3 (0.0-0.4); Eosinophils % 2.5 % (0.1-12.0); Hematocrit 44.2 % (37.0-47.0); Hemoglobin 14.9 g/dL (12.2-16.2); Lymphocytes # 3.8 K/mm3 (0.7-4.5); Lymphocytes % 33.9 % (10-50); Mean Corpuscular HGB Conc 33.8 g/dL (31.8-35.4); Mean Corpuscular Hemoglobin 31.3 pg (27.0-31.2); Mean Corpuscular Volume 92.5 fl (81-99); Mean Platelet Volume 7.9 fl (7.4-10.4); Monocytes # 0.5 K/mm3 (0.1-1.0); Monocytes % 4.2 % (1.7-9.3); Neutrophils # 6.6 K/mm3 (1.8-7.8); Neutrophils % 58.6 % (37.0-80.0); Platelet Count 266 K/mm3 (142-424); Red Blood Count 4.78 M/mm3 (4.20-5.40); Red Cell Distribution Width 14.2 % (11.5-17.5); White Blood Count 11.3 K/mm3 (4.8-10.8)
[2020-02-20 16:32] LABS: Free T4 (Free Thyroxine) 0.93 ng/dl (0.78-2.19)
[2020-02-20 16:59] LABS: Chloride 104 mmol/L (98-107); Potassium 3.9 mmoL/L (3.5-5.1); Sodium 136 mmol/L (136-145)
[2020-02-20 17:02] LABS: Alanine Aminotransferase 32 U/L (12-78); Albumin Level 3.6 g/dl (3.5-5.0); Albumin/Globulin Ratio 1.2 (1.1-1.8); Alkaline Phosphatase 128 U/L (38-126); Anion Gap 12.9 mEq/L (5-15); Aspartate Amino Transferase 31 U/L (14-36); Bilirubin,Total 0.6 mg/dl (0.2-1.3); Blood Urea Nitrogen 6 mg/dl (7-17); Carbon Dioxide 23 mmol/L (22.0-30.0); Estimated Glomerular Filt Rate 131 ml/min (>60); GFR (African American) 159 ML/MIN (>60); Globulin 2.9 g/dL (1.3-3.2); Total Protein,Serum 6.5 g/dl (6.3-8.2)
[2020-02-20 17:03] LABS: Calcium 8.9 mg/dl (8.4-10.2); Glucose 181 mg/dl (74-100)
[2020-02-20 18:43] LABS: Eosinophils % 2 % (0-3); Lymphocytes % 32 % (10-50); Monocytes % 4 % (2-9); Neutrophils % 62 % (42-76); Platelet Estimate Normal; RBC Morphology Normal; Total Cells Counted 100
== END ==
PROVIDERS: Visit Provider Otolaryngology
DX: H61.21 Impacted cerumen, right ear (principal); H61.22 Impacted cerumen, left ear; R53.83 Other fatigue
CPT/HCPCS: 36415; 80053; 84439; 85007; 85014; 85018; 85048; 85049

== ENCOUNTER → 2020-02-29 15:13 | Outpatient (CLI) | payer MEDICARE, MEDICAID, SELFPAY ==
--- NOTE | 2020-02-29 15:13 | MR_ITS ---
PROCEDURE: MR HEAD/BRAIN WO CON CLINICAL INDICATION: MS PROTOCOL-abnormal prior MRI, Headache DIZZINESS, STABBING PAINS IN HEAD, PRIOR ABNORMAL MRI 07-25-19 COMPARISON: MR MR HEAD/BRAIN WO CON from 07/25/2019 TECHNIQUE: Routine multiplanar multi echo sequences are performed without patch that gadolinium enhancement. DIR images also performed FINDINGS: No midline shift or mass effect evident. The cerebellopontine angles, cerebellum, and brainstem have an unremarkable appearance. There is no evidence of acute infarction. Once again there is noted scattered periventricular and subcortical T2 white matter hyperintensities. At least 1 of these lesions are new compared to the previous exam in the central aspect of the left parietal lobe best detected on axial image series 5, image 19. This lesion is oriented perpendicular to the long axis of the lateral ventricle and may represent a Rm's finger as noted with multiple sclerosis. Other areas do not appear significantly changed. The pituitary, optic chiasm, corpus callosum, and craniocervical junction have an unremarkable appearance. No mastoid effusion or sinus air-fluid level. IMPRESSION: 1. Persistent scattered periventricular and subcortical T2 white matter hyperintensities with 1 new area of increased FLAIR signal in the left parietal lobe. These findings may represent multiple sclerosis. Differential diagnosis includes ischemic gliotic foci or migraine headache. Dictated by: Gonzalo Peña MD 03/04/2020 10:15 Gonzalo Peña MD in [place] 03/04/2020 10:15
== END ==
PROVIDERS: PCP Emergency Medicine; Visit Provider Specialist
DX: H53.8 Other visual disturbances (principal); R42 Dizziness and giddiness; R51 Headache; R90.89 Other abnormal findings on diagnostic imaging of central nervous system
CPT/HCPCS: 70551

== ENCOUNTER → 2020-04-23 09:36 | Outpatient (CLI) | payer MEDICARE, MEDICAID, SELFPAY ==
--- NOTE | 2020-04-23 09:47 | MM_ITS ---
PROCEDURE: MM DIG SCREENING MAMM BI W/CAD Digital Breast Tomosynthesis Included CLINICAL INDICATION: mamm screening There is a history of breast cancer in the patient's maternal aunts. The patient currently is on estrogen. COMPARISON: MG DMSB DIG MAMM-SCREEN LANRE from 06/19/2015 MG DMSB DIG MAMM-SCREEN LANRE from 06/22/2016 MG [facility] MM Dig screening mamm BI w/CAD from 11/01/2017 TECHNIQUE: Standard CC and MLO images and 3D Tomosynthesis was obtained. R2 CAD reviewed. FINDINGS: Scattered fibroglandular densities are seen throughout both breast and the findings are fairly symmetrical bilaterally. However there is a possible new nodular lesion just deep to and slightly lateral to the right nipple best seen on the olivia images. This was not definitely seen previously. Recommend the patient return for ultrasound examination right breast for additional evaluation. The there is a stable nodular density near the axillary tail. There is a benign-appearing calcification right breast. There are no suspicious microcalcifications. IMPRESSION: Moderate breast density with possible new lesion right breast BI-RAD Category: 0 Need Additional Imaging Evaluation FOLLOW-UP: IMM Immediate Follow-up Recommended (A letter has been sent to the patient regarding results of the study.) Dictated by: Dr. Jaime Miguel MD 04/25/2020 12:25 Dr. Jaime Miguel MD in [place] 04/25/2020 12:25
== END ==
PROVIDERS: PCP Emergency Medicine; Visit Provider Surgery
DX: Z12.31 Encounter for screening mammogram for malignant neoplasm of breast (principal)
CPT/HCPCS: 77063; 77067

== ENCOUNTER → 2020-05-03 13:01 | Outpatient (CLI) | payer MEDICARE, MEDICAID, SELFPAY ==
--- NOTE | 2020-05-03 13:07 | US_ITS ---
PROCEDURE: US BREAST RT COMPLETE CLINICAL INDICATION: breast lesion COMPARISON: MG DMSB DIG MAMM-SCREEN LANRE from 06/19/2015 MG MM DIG SCREENING MAMM BI W/CAD from 04/23/2020 FINDINGS: At 1 o'clock there is a septated cyst measuring 4 x 4 mm. There is an additional hypoechoic nodule at 1 o'clock at 3 mm with some enhanced through transmission of sound. At 2 o'clock there is a 4 mm cyst. At 9 o'clock there is a 4 mm septated cyst which could account for the mammographic abnormality.. At 10 o'clock there is a 5 mm hypoechoic nodule which may be due to a complicated cyst with some low level echoes with enhanced through transmission of sound. In the retroareolar region there is a 4 mm cyst. Small nodes are present in the axilla IMPRESSION: There are multiple complicated cysts of the right breast. The cyst at 9 o'clock may correspond to the mammographic abnormality. BI-RADS category 3 probably benign. Recommend six-month mammographic and sonographic follow-up Dictated by: Gonzalo Peña MD 05/07/2020 14:18 Gonzalo Peña MD in [place] 05/07/2020 14:18
== END ==
PROVIDERS: PCP Emergency Medicine; Visit Provider Surgery
DX: R92.2 Inconclusive mammogram (principal)
CPT/HCPCS: 76641

== ENCOUNTER → 2020-05-08 14:41 | Outpatient (CLI) | payer MEDICARE, MEDICAID, SELFPAY | PROVIDERS: Visit Provider Nurse Practitioner Family | DX: N30.01 Acute cystitis with hematuria (principal); R30.0 Dysuria; R35.0 Frequency of micturition | CPT/HCPCS: 87086 ==

== ENCOUNTER → 2020-07-25 11:47 | Outpatient (CLI) | payer MEDICARE, MEDICAID, SELFPAY ==
[2020-07-25 12:39] LABS: Basophils # 0.2 K/mm3 (0-0.2); Basophils % 1.2 % (0.1-2.0); Eosinophils # 0.6 K/mm3 (0.0-0.4); Hematocrit 50.6 % (37.0-47.0); Hemoglobin 16.8 g/dL (12.2-16.2); Lymphocytes # 3.2 K/mm3 (0.7-4.5); Mean Corpuscular HGB Conc 33.1 g/dL (31.8-35.4); Mean Corpuscular Volume 93.6 fl (81-99); Mean Platelet Volume 8.9 fl (7.4-10.4); Monocytes # 0.6 K/mm3 (0.1-1.0); Monocytes % 4.1 % (1.7-9.3); Neutrophils # 9.3 K/mm3 (1.8-7.8); Neutrophils % 67.7 % (37.0-80.0); Platelet Count 293 K/mm3 (142-424); White Blood Count 13.7 K/mm3 (4.8-10.8)
[2020-07-25 13:18] LABS: Alanine Aminotransferase 34 U/L (12-78); Albumin Level 4.6 g/dl (3.5-5.0); Albumin/Globulin Ratio 1.4 (1.1-1.8); Alkaline Phosphatase 173 U/L (38-126); Anion Gap 15.5 mEq/L (5-15); Aspartate Amino Transferase 32 U/L (14-36); Bilirubin,Total 0.9 mg/dl (0.2-1.3); Blood Urea Nitrogen 11 mg/dl (7-17); Calcium 9.5 mg/dl (8.4-10.2); Carbon Dioxide 24 mmol/L (22.0-30.0); Chloride 103 mmol/L (98-107); Chol/HDL Ratio 4.9 (1-3.5); Cholesterol 201 mg/dl (140-200); Estimated Glomerular Filt Rate 89 ml/min (>60); GFR (African American) 107 ML/MIN (>60); Globulin 3.2 g/dL (1.3-3.2); Glucose 201 mg/dl (74-100); HDL Cholesterol 41 mg/dl (40-60); Potassium 4.5 mmoL/L (3.5-5.1); Sodium 138 mmol/L (136-145); Total Protein,Serum 7.8 g/dl (6.3-8.2)
[2020-07-25 13:24] LABS: Triglycerides 493 mg/dl (30-150)
[2020-07-25 13:30] LABS: Direct LDL Cholesterol 83.59 mg/dL (100-129)
[2020-07-25 13:36] LABS: 25-OH Vitamin D, Total 31.2 ng/mL (30-100)
[2020-07-25 13:38] LABS: T4 (Thyroxine) 11.8 ug/dl (5.53-11.0)
[2020-07-25 13:52] LABS: Thyroid Stimulating Hormone 2.59 uIU/mL (0.465-4.68)
[2020-07-25 14:10] LABS: Vitamin B12 278 pg/mL (239-931)
[2020-07-25 14:53] LABS: Hemoglobin A1C 6.8 % (4.0-6.0)
[2020-08-10 23:42] LABS: APTT 24.7 sec (.); Anti-Cardiolipin Antibody IgG <10 GPL (.); Anti-Cardiolipin Antibody IgM <10 MPL (.); Beta-2 Glycoprotein I Ab, IgA <10 SAU (.); Beta-2 Glycoprotein I Ab, IgG <10 SGU (.); Beta-2 Glycoprotein I Ab, IgM <10 SMU (.); Hexagonal Phase Phospholipid 0 sec (.); Prothrombin Time 10.6 sec (.); Thrombin Time 16.4 sec (.)
== END ==
PROVIDERS: Visit Provider Nurse Practitioner Family
DX: R21 Rash and other nonspecific skin eruption (principal); E11.69 Type 2 diabetes mellitus with other specified complication; R93.89 Abnormal findings on diagnostic imaging of other specified body structures; K85.90 Acute pancreatitis without necrosis or infection, unspecified; R53.83 Other fatigue; Z79.84 Long term (current) use of oral hypoglycemic drugs; Z68.30 Body mass index [BMI] 30.0-30.9, adult
CPT/HCPCS: 36415; 80053; 80061; 82306; 82607; 83036; 84436; 84443; 85025; 85597; 85598; 85610; 85613; 85670; 85730; 86146; 86147

== ENCOUNTER → 2020-08-09 07:32 | Outpatient (CLI) | payer MEDICARE, MEDICAID, SELFPAY ==
--- NOTE | 2020-08-09 07:38 | CT_ITS ---
PROCEDURE: CT CHEST WO CON CLINICAL INDICATION: FU Abnormal Chest CT Right lung nodule Abnormal ct nodule COMPARISON: CT CT CHEST WO CON from 09/11/2019 TECHNIQUE: Axial images obtained with sagittal and coronal reformats. All CT scans at the facility use one or more dose reduction, viz: automated exposure control, ma/kV adjustment per patient size (including targeted exams where dose is matched to indication, i.e. head), or iterative reconstruction technique. FINDINGS: HEART AND MEDIASTINAL STRUCTURES: There are few small mediastinal lymph nodes. Calcified hilar node is present on the left. There is mild thickening of the pericardium anteriorly measuring up to 9 mm in thickness. LUNGS AND PLEURAL SPACES: There are scattered noncalcified pulmonary nodules. These are more numerous when compared to the previous exam. The nodules range in size from 2-3 mm up to 6 mm in the right upper lobe. Previously noted 6 mm nodule in the right lower lobe is unchanged. No effusions are evident. Some of these nodules have a somewhat ground-glass density. No lobar consolidation or collapse. There is a calcified granuloma in the left lower lobe. BONY STRUCTURES: No acute bony abnormalities apparent. UPPER ABDOMEN: Fatty liver. There is scarring in the upper pole of the left kidney. ADDITIONAL FINDINGS: No other significant abnormalities. IMPRESSION: There are numerous small bilateral pulmonary nodules present some of which have a ground-glass appearance. These have increased in number compared to the previous exam. These could be due to inflammatory or infectious process or neoplasm such as metastatic disease. Please correlate with clinical parameters. Mild thickening of the pericardium suggesting small pericardial effusion. Dictated by: Gonzalo Peña MD 08/15/2020 13:48 Gonzalo Peña MD in [place] 08/15/2020 13:48
== END ==
PROVIDERS: PCP Nurse Practitioner Family; Visit Provider Nurse Practitioner Family
DX: R93.89 Abnormal findings on diagnostic imaging of other specified body structures (principal)
CPT/HCPCS: 71250

== ENCOUNTER → 2020-08-15 13:54 | Outpatient (CLI) | payer MEDICARE, MEDICAID, SELFPAY ==
[2020-08-15 14:08] LABS: Creatinine,Urine Random 66 mg/dL (Not Estab.)
[2020-08-15 14:10] LABS: Microalbumin/Creatinine Ratio 17.5
== END ==
PROVIDERS: Visit Provider Nurse Practitioner Family
DX: E11.69 Type 2 diabetes mellitus with other specified complication (principal); Z79.84 Long term (current) use of oral hypoglycemic drugs
CPT/HCPCS: 82043; 82570

== ENCOUNTER → 2020-08-21 11:18 | Outpatient (CLI) | payer MEDICARE, MEDICAID, SELFPAY ==
[2020-08-21 12:16] LABS: Basophils # 0.1 K/mm3 (0-0.2); Basophils % 0.7 % (0.1-2.0); Eosinophils # 0.4 K/mm3 (0.0-0.4); Eosinophils % 3.2 % (0.1-12.0); Hematocrit 45.5 % (37.0-47.0); Hemoglobin 14.7 g/dL (12.2-16.2); Lymphocytes # 3.8 K/mm3 (0.7-4.5); Lymphocytes % 28.8 % (10-50); Mean Corpuscular HGB Conc 32.4 g/dL (31.8-35.4); Mean Corpuscular Hemoglobin 30.7 pg (27.0-31.2); Mean Corpuscular Volume 94.9 fl (81-99); Mean Platelet Volume 8.8 fl (7.4-10.4); Monocytes # 0.5 K/mm3 (0.1-1.0); Monocytes % 3.9 % (1.7-9.3); Neutrophils # 8.3 K/mm3 (1.8-7.8); Neutrophils % 63.4 % (37.0-80.0); Platelet Count 277 K/mm3 (142-424); Red Cell Distribution Width 13.6 % (11.5-17.5); White Blood Count 13.1 K/mm3 (4.8-10.8)
[2020-08-21 12:58] LABS: Uric Acid 3.9 mg/dl (2.5-6.2)
[2020-08-21 13:04] LABS: C-Reactive Protein 2.6 mg/L (0-4)
[2020-08-21 13:16] LABS: Erythrocyte Sedimentation Rate 15 mm/hr (0-20)
[2020-08-22 13:10] LABS: Anti-Centromere B Antibodies <0.2 AI (0.0-0.9); Anti-Jo-1 <0.2 AI (0.0-0.9); Anti-Smith Antibody <0.2 AI (0.0-0.9); Antichromatin Antibodies <0.2 AI (0.0-0.9); Antiscleroderma-70 Antibodies <0.2 AI (0.0-0.9); RA Latex Turbid. <10.0 IU/mL (0.0-13.9); RNP Antibodies <0.2 AI (0.0-0.9); Sjogren's Anti-SS-A <0.2 AI (0.0-0.9); Sjogren's Anti-SS-B <0.2 AI (0.0-0.9)
[2020-08-22 14:15] LABS: Anti-DNA (DS) Ab Qn <1 IU/mL (0-9)
[2020-08-22 14:15] LABS: Anti-DNA (DS) Ab Qn <1 IU/mL (0-9); RA Latex Turbid. <10.0 IU/mL (0.0-13.9)
[2020-08-22 18:13] LABS: Cytoplasmic (C-ANCA) <1:20 titer (Neg:<1:20)
[2020-08-22 19:48] LABS: Perinuclear (P-ANCA) <1:20 titer (Neg:<1:20)
[2020-08-23 15:01] LABS: Antinuclear Antibodies, IFA Negative (.)
[2020-08-23 22:18] LABS: D001-IgE D pteronyssinus <0.10 kU/L (Class 0); D002-IgE D farinae <0.10 kU/L (Class 0); E001-IgE Cat Dander <0.10 kU/L (Class 0); E005-IgE Dog Dander <0.10 kU/L (Class 0); G002-IgE Bermuda Grass <0.10 kU/L (Class 0); G006-IgE Timothy Grass <0.10 kU/L (Class 0); I006-IgE Cockroach, German <0.10 kU/L (Class 0); Immunoglobulin E, Total 53 IU/mL (6-495); M001-IgE Penicillium chrysogen <0.10 kU/L (Class 0); M002-IgE Cladosporium herbarum <0.10 kU/L (Class 0); M003-IgE Aspergillus fumigatus <0.10 kU/L (Class 0); M006-IgE Alternaria alternata <0.10 kU/L (Class 0); T001-IgE Maple/Box Elder <0.10 kU/L (Class 0); T006-IgE Cedar, Mountain <0.10 kU/L (Class 0); T007-IgE Oak, White <0.10 kU/L (Class 0); T008-IgE Elm, American <0.10 kU/L (Class 0); T010-IgE Walnut <0.10 kU/L (Class 0); T011-IgE Maple Leaf Sycamore <0.10 kU/L (Class 0); T014-IgE Cottonwood <0.10 kU/L (Class 0); T015-IgE Ash, White <0.10 kU/L (Class 0); T022-IgE Pecan, Hickory <0.10 kU/L (Class 0); T070-IgE White Mulberry <0.10 kU/L (Class 0); W001-IgE Ragweed, Short <0.10 kU/L (Class 0); W011-IgE Thistle, Russian <0.10 kU/L (Class 0); W014-IgE Pigweed, Common <0.10 kU/L (Class 0); W016-IgE Rough Marshelder <0.10 kU/L (Class 0)
[2020-08-23 23:19] LABS: E072-IgE Mouse Urine <0.10 kU/L (Class 0)
[2020-08-24 18:50] LABS: Aspergillus flavus Negative (Neg:<1:1); Aspergillus fumigatus Negative (Neg:<1:1); Aspergillus niger Negative (Neg:<1:1)
[2020-08-24 18:55] LABS: Blastomyces Antibody Negative (Neg:<1:1)
[2020-08-24 18:55] LABS: QuantiFERON-TB Gold Plus Negative (Negative)
[2020-08-26 20:08] LABS: Histoplasma Gal'mannan Ag Ur <0.5 (<0.5 ng/mL)
[2020-09-14 21:57] LABS: Antinuclear Antibodies (ANA) NEGATIVE
== END ==
PROVIDERS: PCP Internal Medicine Pulmonary Disease; Visit Provider Nurse Practitioner Family
DX: J44.9 Chronic obstructive pulmonary disease, unspecified (principal); J84.9 Interstitial pulmonary disease, unspecified; J45.909 Unspecified asthma, uncomplicated; J98.4 Other disorders of lung; R06.00 Dyspnea, unspecified; J84.10 Pulmonary fibrosis, unspecified
CPT/HCPCS: 36415; 82785; 84550; 85025; 85651; 86003; 86038; 86140; 86225; 86235; 86256; 86431; 86480; 86606; 86612; 87385

== ENCOUNTER 2020-09-12 17:44 | Emergency (ER) | payer MEDICARE, MEDICAID, SELFPAY ==
[2020-09-12 18:01] VITALS: BP 165/106; PULSE 102; RESP 16; TEMP 36.6; O2SAT 95
--- NOTE | 2020-09-12 18:05 | HMH.EDUTC ---
[facility] Disposition Clinical Impression: Ingrown nail of great toe of left foot Disposition: Home, Self-Care Condition on Discharge: Good Instructions: DI for Ingrown Toenail Additional Instructions: Soak the foot in warm salt water three times per day for the next several days. Watch the site for worsening swelling, worsening redness, etc. Follow up with podiatry (Dr. Up). I put in a referral, but you need to call her office and make an appointment. Her number will be on this paperwork. Take the medication as directed and apply the topical medication as directed. Follow up with your primary care physician. GO TO THE ER FOR ANY WORSENING SYMPTOMS OR CONCERNS Prescriptions: Amoxicillin/Potassium Clav [Augmentin 875-125 Tablet] 1 tab PO Q12H 10 Days #20 tab Transmission Status: Received by [facility] #[id number] Mupirocin [Bactroban 2% Ointment 22gm tube] 1 applicatio TP TID 7 Days #1 tube Transmission Status: Received by [facility] #[id number] Referrals: Naif Childress MD [Primary Care Provider] - Dacia Up DPM [Staff Physician] - Forms: Work/School Release Time of Disposition: 18:44 Medical Decision Making - Medical Records Medical records reviewed: No: I reviewed the patient's medical records. - Blake Inquiry Pt receiving controlled substance: No Vital Signs: 09/12/20 18:01 09/12/20 18:55 Temperature 98 F 98 F Temperature Source Tympanic Pulse Rate 98 H Pulse Rate [Right] 102 H Respiratory Rate 16 16 Blood Pressure 149/97 H Blood Pressure [Right Arm] 165/106 H Blood Pressure Mean [Right Arm] 125 Blood Pressure Source [Right Arm] Automatic Cuff Blood Pressure Position [Right Arm] Sitting 02 Sat by Pulse Oximetry 95 Orders (Tests/Meds): ED MEDICATIONS Discontinued Medications Generic Name Dose Route Start Last Admin Trade Name Daveq PRN Reason Stop Dose Admin Ceftriaxone Sodium 1 gm 09/12/20 18:27 09/12/20 18:38 Ceftriaxone 1gm Vial IM 09/12/20 18:28 1 gm ONCE ONE Administration Protocol Lidocaine HCl 0 ml 09/12/20 18:27 09/12/20 18:38 Lidocaine 1% 5ml Pf Vial IM 09/12/20 18:28 2 ml ONCE ONE Administration [facility] HPI - General Stated complaint: Left big toe infected Time Seen by Provider: 09/12/20 18:06 Mode of Arrival: Ambulatory Source of Information: Patient Limitations: No Limitations Description of Symptoms (Recalled from Triage Doc. by RN): pt is a diabetic and her big toe on her L foot is ingrown. her toe is red and growing inside under the toe nail HEENT Symptoms (Recalled from RN notes): No Resp Symptoms (Recalled from RN notes): No Skin Symptoms (Recalled from RN notes): Yes (left foot big toe is in grown) MS Symptoms (Recalled from RN notes): No Functional Status (Recalled from RN notes): . - History of Present Illness Provider Complaint: She states that for the past 1 week she has had left great toe pain and swelling. She has an ingrown toe nail. She is a diabetic. - Related Data Previous Rx's Medication Instructions Recorded [place]-3 Fatty Acids/Fish Oil [Fish 1 each PO DAILY 30 Days #30 cap 10/12/19 Oil 1,000 mg Capsule] ubrogepant 100 mg tablet 100 mg PO .COMPLEX #8 tab 02/29/20 atorvastatin 40 mg tablet 40 mg PO HS #90 tab 07/25/20 blood sugar diagnostic See Rx Instructions .ROUTE 07/25/20 .MEDSUPPLY #100 each blood-glucose meter See Rx Instructions .ROUTE 07/25/20 .MEDSUPPLY #1 each bupropion HCl 75 mg tablet 75 mg PO BID 90 Days #180 tab 07/25/20 carvedilol 25 mg tablet 25 mg PO BID #60 tab 07/25/20 cetirizine 10 mg tablet 10 mg PO DAILY #90 tab 07/25/20 clobetasol 0.05 % lotion 1 applic TOPICAL BID 14 Days #118 07/25/20 ml estradiol 2 mg tablet See Rx Instructions .ROUTE 07/25/20 .COMPLEX #90 tab fluticasone propionate 50 1 spray INTRANASAL QDAY 30 Days 07/25/20 mcg/actuation nasal #9.9 g spray,suspension hydrochlorothiazide 25 mg tablet 25 mg PO DAILY #90 tab 0
[2020-09-12 18:55] VITALS: BP 149/97; PULSE 98; RESP 16; TEMP 36.6
== END 2020-09-12 19:03 | disposition home or self-care (01) ==
PROVIDERS: Emergency Provider Nurse Practitioner Family; PCP Emergency Medicine
DX: L60.0 Ingrowing nail (principal); E11.9 Type 2 diabetes mellitus without complications
CPT/HCPCS: 96372; 99202; G0463

== ENCOUNTER → 2020-11-05 13:10 | Outpatient (CLI) | payer MEDICARE, MEDICAID, SELFPAY ==
--- NOTE | 2020-11-05 13:13 | MM_ITS ---
PROCEDURE: MM DIG MAMM DX UNILAT RT CAD Digital Breast Tomosynthesis Included CLINICAL INDICATION: CYST RT BREAST COMPARISON: MG DMSB DIG MAMM-SCREEN LANRE from 06/22/2016 MG [facility] MM Dig screening mamm BI w/CAD from 11/01/2017 MG MM DIG SCREENING MAMM BI W/CAD from 04/23/2020 US US BREAST RT COMPLETE from 05/03/2020 US US BREAST RT COMPLETE from 11/05/2020 TECHNIQUE: Standard CC and MLO images and 3D Tomosynthesis was obtained. R2 CAD reviewed. FINDINGS: Average fibroglandular tissue. 6 mm lobulated nodular opacity in the lateral aspect of the right breast 3 cm deep and 2 cm lateral to the nipple similar to the previous exam. Nodule margins however demonstrate some mild micro nodularity.. No malignant appearing microcalcifications or architectural distortion. Right breast ultrasound: Hypoechoic 5 mm nodule at 1 o'clock near the nipple very slightly more prominent compared to the previous exam possibly due to a complex cyst. Wider than tall with some enhanced through transmission of sound. Septated cyst at 4 mm at 2 o'clock Additional 3 mm slightly hypoechoic nodular area at 1 o'clock 5 x 5 mm septated cyst at 9 o'clock near the nipple. This may represent the mammographic abnormality however, the micro nodularity of the nodule on mammogram does somewhat raise suspicion. Suggest ultrasound-guided cyst aspiration. If the nodule persists on mammogram then stereotactic biopsy would be needed. In the outer aspect of the right breast there is a 7 mm hypoechoic area at 10 o'clock previously measuring 6 mm. The difference in size could be related to the scanning technique. A 3 mm hypoechoic nodules present at 10 o'clock. 3 mm cyst is present in the retroareolar region. IMPRESSION: Discordant nodule in the 9 o'clock region of the right breast as described above. Other probably benign nodules noted on the ultrasound. BI-RAD Category: 4 Suspicious Abnormality - Biopsy Considered FOLLOW-UP: BIO Biopsy Recommended Suggest ultrasound-guided cyst aspiration to be followed by mammogram. If the nodule persists then stereotactic biopsy would be recommended (A letter has been sent to the patient regarding results of the study.) Dictated by: Gonzalo Peña MD 11/12/2020 09:07 Gonzalo Peña MD in [place] 11/12/2020 09:07
== END ==
PROVIDERS: PCP Emergency Medicine; Visit Provider Surgery
DX: R92.8 Other abnormal and inconclusive findings on diagnostic imaging of breast (principal)
CPT/HCPCS: 76641; 77061; 77065; G0279

== ENCOUNTER → 2020-11-14 12:39 | Outpatient (CLI) | payer MEDICARE, MEDICAID, SELFPAY ==
--- NOTE | 2020-11-14 13:53 | CT_ITS ---
PROCEDURE: CT CHEST WO CON CLINICAL INDICATION: Follow up Lung nodules soa Prior on pacs COMPARISON: CT CT CHEST WO CON from 09/11/[address] CHEST WO CON from 08/09/2020 TECHNIQUE: Axial images obtained with sagittal and coronal reformats. All CT scans at the facility use one or more dose reduction, viz: automated exposure control, ma/kV adjustment per patient size (including targeted exams where dose is matched to indication, i.e. head), or iterative reconstruction technique. FINDINGS: HEART AND MEDIASTINAL STRUCTURES: There is a small node in the upper mediastinum posterior to the sternum not significantly changed measuring approximately 8 mm.. An additional soft tissue density is present also in the upper mediastinum anteriorly measuring 14 by 9 mm previously 12 x 7 mm and may represent a lymph node. There remains mild thickening of the pericardium slightly improved. No hilar mass apparent. Stable small precarinal lymph nodes.. Coronary artery calcifications noted. LUNGS AND PLEURAL SPACES: Numerous small pulmonary nodules once again noted not significantly changed. Previously noted 6 mm nodule in the right lower lobe image 36 series 3 is not significantly changed. No new nodules are identified. No effusions or infiltrates. Previously there was a 6 mm nodule in the right upper lobe which is no longer apparent. The previously noted ground-glass opacities have resolved. The nodules described above appears similar when compared to 09/11/2019. BONY STRUCTURES: No acute bony abnormalities apparent. UPPER ABDOMEN: Fatty liver ADDITIONAL FINDINGS: No other significant abnormalities. IMPRESSION: Overall there has been improvement in the previously described ground-glass opacities. There are few small pulmonary nodules which appear stable compared to 09/11/2019. Small mediastinal lymph nodes are slightly more prominent. Dictated by: Gonzalo Peña MD 11/15/2020 09:07 Gonzalo Peña MD in [place] 11/15/2020 09:07
== END ==
PROVIDERS: PCP Emergency Medicine; Visit Provider Internal Medicine Pulmonary Disease
DX: R91.8 Other nonspecific abnormal finding of lung field; J44.9 Chronic obstructive pulmonary disease, unspecified
CPT/HCPCS: 71250; 94060; 94726; 94729

== ENCOUNTER → 2020-12-03 09:37 | Outpatient (CLI) | payer MEDICARE, MEDICAID, SELFPAY ==
--- NOTE | 2020-12-03 09:45 | US_ITS ---
PROCEDURE: US FNA BREAST CLINICAL INDICATION: RT BREAST LESION Discordant sonographic and mammographic findings at 9 o'clock. COMPARISON: MG DMSB DIG MAMM-SCREEN LANRE from 06/22/2016 MG [facility] MM Dig screening mamm BI w/CAD from 11/01/2017 MG MM DIG SCREENING MAMM BI W/CAD from 04/23/2020 US US BREAST RT COMPLETE from 11/05/2020 MG MM DIG MAMM DX UNILAT RT CAD from 11/05/2020 MG MM DIG MAMM DX UNILAT RT CAD from 12/03/2020 FINDINGS: Following obtaining informed consent and time-out procedure under aseptic conditions and local anesthesia with 1 percent buffered lidocaine, a 21 gauge needle was inserted into the right breast at the 9 o'clock position and directed toward the complicated cyst with sonographic guidance and the cyst was completely aspirated. Approximately 1 mL of dark fluid was aspirated and sent to cytology. Cytology: Negative for malignancy. Apical and metaplasia in foamy macrophages consistent with benign cyst contents Mammogram was obtained after this. Right mammogram with 3D tomography: The previously noted micro lobular nodule at the 3 o'clock position of the right breast is no longer apparent and represents a sonographic abnormality which appears to be a complicated cyst. IMPRESSION: Uneventful ultrasound-guided FNA of the right breast. Previously noted nodule is no longer apparent on the mammogram following aspiration by ultrasound indicating that the nodules are concordant representing a benign cyst negative for malignancy. Recommend six-month mammogram and ultrasound per routine biopsy protocol. . Dictated by: Gonzalo Peña MD 12/10/2020 08:26 Gonzalo Peña MD in [place] 12/10/2020 08:26
== END ==
PROVIDERS: PCP Emergency Medicine; Visit Provider Surgery
DX: N63.10 Unspecified lump in the right breast, unspecified quadrant (principal); R92.8 Other abnormal and inconclusive findings on diagnostic imaging of breast
CPT/HCPCS: 10005; 77061; 77065; 88173; G0279

== ENCOUNTER → 2020-12-17 14:59 | Outpatient (CLI) | payer MEDICARE, MEDICAID, SELFPAY | PROVIDERS: Visit Provider Nurse Practitioner Family | DX: N39.0 Urinary tract infection, site not specified (principal); R53.83 Other fatigue | CPT/HCPCS: 87086 ==

== ENCOUNTER → 2020-12-18 08:44 | Outpatient (CLI) | payer MEDICARE, MEDICAID, SELFPAY ==
[2020-12-18 08:50] LABS: Adenovirus F 40/41, stool Not Detected (NotDetected); Astrovirus Not Detected (NotDetected); Campylobacter Not Detected (NotDetected); Clostridium Difficile A/B, PCR Not Detected (NotDetected); Cryptosporidium Not Detected (NotDetected); Cyclospora Cayetanesis Not Detected (NotDetected); Entamoeba histolytica Not Detected (NotDetected); Enteroaggregative E coli Not Detected (NotDetected); Enteropathogenic E coli Not Detected (NotDetected); Enterotoxigenic E coli Not Detected (NotDetected); Giardia lamblia Not Detected (NotDetected); Norovirus Not Detected (NotDetected); Plesimonas Shigalloides, PCR Not Detected (NotDetected); Rotavirus A Not Detected (NotDetected); Salmonella, PCR Not Detected (NotDetected); Sapovirus Not Detected (NotDetected); Shiga-like toxin E coli Not Detected (NotDetected); Shigella Enterovasive E coli Not Detected (NotDetected); Vibrio Cholerae Not Detected (NotDetected); Vibrio, PCR Not Detected (NotDetected); Yersinia Entercolitica, PCR Not Detected (NotDetected)
== END ==
PROVIDERS: Visit Provider Nurse Practitioner Family
DX: R19.7 Diarrhea, unspecified (principal)
CPT/HCPCS: 87506

== ENCOUNTER → 2021-01-23 17:51 | Outpatient (CLI) | payer MEDICARE, MEDICAID, SELFPAY ==
[2021-01-23 19:33] LABS: Basophils # 0.1 K/mm3 (0-0.2); Basophils % 1.1 % (0.1-2.0); Eosinophils # 0.1 K/mm3 (0.0-0.4); Eosinophils % 1.3 % (0.1-12.0); Hematocrit 44.1 % (37.0-47.0); Hemoglobin 14.9 g/dL (12.2-16.2); Lymphocytes # 3.5 K/mm3 (0.7-4.5); Lymphocytes % 34.6 % (10-50); Mean Corpuscular HGB Conc 33.8 g/dL (31.8-35.4); Mean Corpuscular Hemoglobin 30.2 pg (27.0-31.2); Mean Corpuscular Volume 89.3 fl (81-99); Mean Platelet Volume 10.8 fl (7.4-10.4); Monocytes # 0.5 K/mm3 (0.1-1.0); Monocytes % 4.7 % (1.7-9.3); Neutrophils # 5.9 K/mm3 (1.8-7.8); Neutrophils % 58.2 % (37.0-80.0); Platelet Count 248 K/mm3 (142-424); Red Blood Count 4.93 M/mm3 (4.20-5.40); Red Cell Distribution Width 13.6 % (11.5-17.5); White Blood Count 10.1 K/mm3 (4.8-10.8)
[2021-01-23 19:44] LABS: Alanine Aminotransferase 26 U/L (12-78); Albumin Level 4.3 g/dl (3.5-5.0); Albumin/Globulin Ratio 1.5 (1.1-1.8); Alkaline Phosphatase 136 U/L (38-126); Aspartate Amino Transferase 35 U/L (14-36); Bilirubin,Total 0.8 mg/dl (0.2-1.3); Blood Urea Nitrogen 8 mg/dl (7-17); Calcium 8.7 mg/dl (8.4-10.2); Carbon Dioxide 25 mmol/L (22.0-30.0); Chloride 100 mmol/L (98-107); Chol/HDL Ratio 3.6 (1-3.5); Cholesterol 168 mg/dl (140-200); Estimated Glomerular Filt Rate 89 ml/min (>60); GFR (African American) 107 ML/MIN (>60); Globulin 2.9 g/dL (1.3-3.2); Glucose 229 mg/dl (74-100); HDL Cholesterol 47 mg/dl (40-60); Sodium 137 mmol/L (136-145); Total Protein,Serum 7.2 g/dl (6.3-8.2)
[2021-01-23 19:55] LABS: Direct LDL Cholesterol 58.48 mg/dL (100-129)
[2021-01-23 20:01] LABS: T4 (Thyroxine) 12.6 ug/dl (5.53-11.0)
[2021-01-23 20:04] LABS: Hemoglobin A1C 8.7 % (4.0-6.0)
[2021-01-23 20:10] LABS: 25-OH Vitamin D, Total 35.7 ng/mL (30-100)
[2021-01-23 20:15] LABS: Thyroid Stimulating Hormone 1.78 uIU/mL (0.465-4.68)
[2021-01-23 21:40] LABS: Creatinine,Urine Random 48 mg/dL (Not Estab.); Microalbumin < 6.000 mg/L (0-16.7)
== END ==
PROVIDERS: Visit Provider Nurse Practitioner Family
DX: E11.9 Type 2 diabetes mellitus without complications (principal); R53.83 Other fatigue; L60.0 Ingrowing nail; K85.90 Acute pancreatitis without necrosis or infection, unspecified; E55.9 Vitamin D deficiency, unspecified; Z79.84 Long term (current) use of oral hypoglycemic drugs
CPT/HCPCS: 80053; 80061; 82043; 82306; 82570; 83036; 84436; 84443; 85025

== ENCOUNTER 2021-04-09 20:36 | Emergency (ER) | payer MEDICARE, MEDICAID, SELFPAY ==
[2021-04-09 20:38] VITALS: BP 155/113; PULSE 89; RESP 18; TEMP 36.9; O2SAT 98; BMI 29.2
--- NOTE | 2021-04-09 20:57 | CT_ITS ---
PROCEDURE INFORMATION: Exam: CT Abdomen And Pelvis With Contrast Exam date and time: 04/09/2021 8:57 PM Age: 50 years old Clinical indication: Abdominal pain; Localized; Prior surgery; Surgery date: 6+ months; Surgery type: Gallbladder, hysterectomy; Patient HX: Upper abd pain, nausea TECHNIQUE: Imaging protocol: Computed tomography of the abdomen and pelvis with contrast. Radiation optimization: All CT scans at this facility use at least one of these dose optimization techniques: automated exposure control; mA and/or kV adjustment per patient size (includes targeted exams where dose is matched to clinical indication); or iterative reconstruction. Contrast material: ISOVUE; Contrast volume: 75 ml; Contrast route: IV; COMPARISON: CT ABDOMEN PELVIS W CON 10/11/2019 2:17 AM FINDINGS: Liver: Normal. Gallbladder and bile ducts: Gallbladder surgically absent. Pancreas: Normal. Spleen: Splenic calcifications, compatible with prior granulomatous disease. Adrenal glands: Normal. No mass. Kidneys and ureters: Mild left renal atrophy, with areas of parenchymal scarring. Stomach and bowel: Several loops of nondilated, gas and fluid-filled small and large bowel, likely enteritis/diarrhea. Appendix: Appendix normal. Intraperitoneal space: Unremarkable. No free air. No significant fluid collection. Vasculature: Atherosclerotic disease of the abdominal aorta and iliac arteries. Phleboliths within the pelvis. Lymph nodes: Calcified left hilar lymph nodes, compatible with prior granulomatous disease. Urinary bladder: Unremarkable as visualized. Reproductive: Uterus is surgically absent. Bones/joints: No acute abnormality. Soft tissues: Normal. IMPRESSION: Several loops of nondilated, gas and fluid-filled small and large bowel, likely enteritis/diarrhea.
[2021-04-09 21:09] LABS: Microscopic, Urine URINE MICROSCOPIC (MICROSCOPIC)
[2021-04-09 21:13] LABS: Appearance,Urine SL CLOUDY (Clear); Bilirubin,Urine Negative (Negative); Blood, Urine Negative (Negative); Color,Urine YELLOW (Yellow); Glucose,Urine (UA) Negative (Negative); Ketones,Urine Negative (Negative); Leukocyte Esterase,Urine Negative (Negative); Nitrate,Urine Negative (Negative); Protein,Urine Negative (Negative); Urobilinogen,Urine 0.2 EU/dl (0.2)
[2021-04-09 21:16] LABS: Basophils # 0.2 K/mm3 (0-0.2); Basophils % 1.4 % (0.1-2.0); Eosinophils # 0.2 K/mm3 (0.0-0.4); Eosinophils % 1.7 % (0.1-12.0); Hematocrit 48.5 % (37.0-47.0); Hemoglobin 15.9 g/dL (12.2-16.2); Lymphocytes # 3.3 K/mm3 (0.7-4.5); Lymphocytes % 31.6 % (10-50); Mean Corpuscular HGB Conc 32.8 g/dL (31.8-35.4); Mean Corpuscular Hemoglobin 30.1 pg (27.0-31.2); Mean Corpuscular Volume 91.7 fl (81-99); Mean Platelet Volume 8.6 fl (7.4-10.4); Monocytes # 0.4 K/mm3 (0.1-1.0); Monocytes % 4.2 % (1.7-9.3); Neutrophils # 6.5 K/mm3 (1.8-7.8); Neutrophils % 61.2 % (37.0-80.0); Platelet Count 263 K/mm3 (142-424); Red Blood Count 5.29 M/mm3 (4.20-5.40); Red Cell Distribution Width 13.4 % (11.5-17.5); White Blood Count 10.6 K/mm3 (4.8-10.8)
[2021-04-09 21:21] LABS: Alanine Aminotransferase 25 U/L (12-78); Albumin Level 4.2 g/dl (3.5-5.0); Albumin/Globulin Ratio 1.2 (1.1-1.8); Alkaline Phosphatase 122 U/L (38-126); Amylase 75 U/L (30-110); Anion Gap 15.7 mEq/L (5-15); Aspartate Amino Transferase 32 U/L (14-36); Bilirubin,Total 0.9 mg/dl (0.2-1.3); Blood Urea Nitrogen 9 mg/dl (7-17); Calcium 9.3 mg/dl (8.4-10.2); Carbon Dioxide 26 mmol/L (22.0-30.0); Chloride 100 mmol/L (98-107); Creatinine Clearance Estimated 117 mL/min (50-200); Estimated Glomerular Filt Rate 89 ml/min (>60); GFR (African American) 107 ML/MIN (>60); Globulin 3.6 g/dL (1.3-3.2); Glucose 218 mg/dl (74-100); Lipase 51 U/L (23-300); Potassium 3.7 mmoL/L (3.5-5.1); Sodium 138 mmol/L (136-145); Total Protein,Serum 7.8 g/dl (6.3-8.2)
[2021-04-09 21:26] LABS: C-Reactive Protein 6.1 mg/L (0-4)
[2021-04-09 21:27] LABS: Bacteria,Urine 3+ /lpf
[2021-04-09 21:40] LABS: Erythrocyte Sedimentation Rate 9 mm/hr (0-20)
[2021-04-09 21:41] LABS: Procalcitonin 0.085 ng/mL (0.0-2.0)
--- NOTE | 2021-04-09 22:11 | PC.NURSE ---
pt to ct
--- NOTE | 2021-04-09 22:26 | HMH.EDNVD ---
ED Disposition Clinical Impression: Enteritis Disposition: Home, Self-Care Condition on Discharge: Good Instructions: DI for Acute Abdominal Pain Additional Instructions: fluids and see pcp for follow up and urine culture results Referrals: Naif Childress MD [Primary Care Provider] - - Critical Care Critical Care Time: No Attestation: On 04/09/21, the high probability of a clinically significant, sudden or life threatening deterioration of the following system(s) required my full and direct attention, intervention and personal management. The time I documented below is in addition to time spent performing reported procedures but includes the following listed in this critical care notation. Medical Decision Making - Medical Records Medical records reviewed: Yes: I reviewed the patient's medical records. - Blake Inquiry Pt receiving controlled substance: No Vital Signs: 04/09/21 20:38 Temperature 98.4 F Temperature Source Oral Pulse Rate [Right] 89 Respiratory Rate 18 Blood Pressure [Right Arm] 155/113 H Blood Pressure Mean [Right Arm] 127 02 Sat by Pulse Oximetry 98 - Lab Data Lab results reviewed: Yes: I reviewed the patient's lab results. Lab Results 04/09/21 21:03: Urine Color Yellow, Urine Appearance Sl cloudy, Urine pH 6.0, Ur Specific [place] 1.020, Urine Protein Negative, Urine Glucose (UA) Negative, Urine Ketones Negative, Urine Blood Negative, Urine Nitrate Negative, Urine Bilirubin Negative, Urine Urobilinogen 0.2, Ur Leukocyte Esterase Negative, Urine RBC 3-5, Urine WBC 5-10, Ur Squamous Epith Cells 5-10, Urine Bacteria 3+ 04/09/21 21:03: WBC 10.6, RBC 5.29, Hgb 15.9, Hct 48.5 H, MCV 91.7, MCH 30.1, MCHC 32.8, RDW 13.4, Plt Count 263, MPV 8.6, Neut % (Auto) 61.2, Lymph % (Auto) 31.6, [place] % (Auto) 4.2, Eos % (Auto) 1.7, Baso % (Auto) 1.4, Neut # (Auto) 6.5, Lymph # (Auto) 3.3, [place] # (Auto) 0.4, Eos # (Auto) 0.2, Baso # (Auto) 0.2, ESR 9 04/09/21 21:03: Sodium 138, Potassium 3.7, Chloride 100, Carbon Dioxide 26, Anion Gap 15.7 H, BUN 9, Creatinine 0.70, Estimated Creat Clear 117, Estimated GFR 89, Est GFR ( Amer) 107, Glucose 218 H, Calcium 9.3, Total Bilirubin 0.9, AST 32, ALT 25, Alkaline Phosphatase 122, C-Reactive Protein 6.1 H, Total Protein 7.8, Albumin 4.2, Globulin 3.6 H, Albumin/Globulin Ratio 1.2, Amylase 75, Lipase 51, Procalcitonin 0.085 Result diagrams: 04/09/21 21:03 04/09/21 21:03 Orders (Tests/Meds): ED MEDICATIONS Generic Name Dose Route Start Last Admin Trade Name Freq PRN Reason Stop Dose Admin Sodium Chloride 1,000 mls @ 999 mls/hr 04/09/21 21:00 04/09/21 22:00 Sod Chlor 0.9% 1000ml Bag IV 04/09/21 22:00 999 mls/hr .Q1H1M YASMIN Administration Sodium Chloride 8 ml 04/09/21 21:00 Sodium Chloride 0.9% 10ml Vial IV 05/09/21 20:59 NEEDED PRN dilute pepcid Discontinued Medications Generic Name Dose Route Start Last Admin Trade Name Freq PRN Reason Stop Dose Admin Famotidine 20 mg 04/09/21 21:00 04/09/21 22:00 Famotidine 20mg/2ml Vial IV 04/09/21 21:01 20 mg ONCE ONE Administration Iopamidol 75 ml 04/09/21 22:22 04/09/21 22:23 Iopamidol-370 (76%);100ml Bottle IV 04/09/21 22:23 75 ml ONCE ONE Administration Metoclopramide HCl 10 mg 04/09/21 21:00 04/09/21 22:00 Metoclopramide Hcl 10mg/2ml Vial IVP 04/09/21 21:01 10 mg ONCE ONE Administration Ondansetron HCl 4 mg 04/09/21 21:02 04/09/21 22:00 Ondansetron 4mg/2ml Vial IV 04/09/21 21:03 4 mg ONCE ONE Administration Sodium Chloride 10 ml 04/09/21 22:22 04/09/21 22:23 Sodium Chloride 0.9% 10ml Syr (Rad Only) IV 04/09/21 22:23 10 ml ONCE ONE Administration ORDERS Category Date Time Status Urine Culture Stat Micro 04/09/21 21:03 Received - CT Data CT Scan: Abdomen, Pelvis Time Received: 23:[address] Reviewed: Yes: I have viewed the radiologist's interpretation Preliminary Findings: Abnormal (enteritis) Medica
[2021-04-09 23:50] VITALS: BP 147/75; PULSE 81; RESP 18; TEMP 36.9; O2SAT 98
== END 2021-04-09 23:54 | disposition home or self-care (01) ==
PROVIDERS: Emergency Provider Emergency Medicine; PCP Emergency Medicine
DX: K52.9 Noninfective gastroenteritis and colitis, unspecified (principal); F17.290 Nicotine dependence, other tobacco product, uncomplicated; F33.1 Major depressive disorder, recurrent, moderate; E11.9 Type 2 diabetes mellitus without complications; K21.9 Gastro-esophageal reflux disease without esophagitis; I10 Essential (primary) hypertension; E78.5 Hyperlipidemia, unspecified; Z79.899 Other long term (current) drug therapy
CPT/HCPCS: 74177; 80053; 81001; 82150; 83690; 84145; 85025; 85651; 86140; 87086; 96365; 96375; 99283; J2405; Q9967

== ENCOUNTER 2021-04-14 14:26 | Emergency (ER) | payer MEDICARE, MEDICAID, SELFPAY ==
[2021-04-14 14:30] VITALS: BP 195/111; PULSE 92; RESP 18; TEMP 36.8; O2SAT 97; BMI 29.2
--- NOTE | 2021-04-14 15:12 | HMH.EDUTC ---
[facility] Disposition Clinical Impression: Abdominal pain Qualifiers: Abdominal location: unspecified location Qualified Code(s): R10.9 - Unspecified abdominal pain Disposition: Still a Patient Condition on Discharge: Fair Referrals: Naif Childress MD [Primary Care Provider] - Time of Disposition: 15:28 Medical Decision Making - Medical Records Medical records reviewed: No: I reviewed the patient's medical records. - Blake Inquiry Pt receiving controlled substance: No Vital Signs: 04/14/21 14:30 Temperature 98.2 F Temperature Source Oral Pulse Rate [Left Brachial] 92 H Respiratory Rate 18 Blood Pressure [Left Arm] 195/111 H Blood Pressure Mean [Left Arm] 139 Blood Pressure Source [Left Arm] Automatic Cuff Blood Pressure Position [Left Arm] Sitting 02 Sat by Pulse Oximetry 97 Oxygen Delivery Method Room Air Medical Decision Narrative: She was transferred to the ER for further evaluation of her abdominal pain. [facility] HPI - General Stated complaint: stomach problems Time Seen by Provider: 04/14/21 15:13 Mode of Arrival: Ambulatory Source of Information: Patient Limitations: No Limitations Description of Symptoms (Recalled from Triage Doc. by RN): PATIENT C/O UPPER ABDOMINAL CRAMPS, DIARRHEA, NAUSEA, LIGHT-HEADED, AND SULFUR BELCHING; SYMPTOMS STARTED LAST WEDNESDAY HEENT Symptoms (Recalled from RN notes): No Resp Symptoms (Recalled from RN notes): No Skin Symptoms (Recalled from RN notes): No MS Symptoms (Recalled from RN notes): No Functional Status (Recalled from RN notes): WNL - History of Present Illness Provider Complaint: She states that she has been having abdominal cramping, abdominal pain, nausea, and diarrhea for the past 1 week approx. She was seen in the ER here last and was diagnosed with enteritis. She has a history of pancreatitis and an abdominal hernia. She has had chilling but no documented fever. She denies any cough or congestion or sore throat. - Related Data Previous Rx's Medication Instructions Recorded [place]-3 Fatty Acids/Fish Oil [Fish 1 each PO DAILY 30 Days #30 cap 10/12/19 Oil 1,000 mg Capsule] terbinafine HCl 1 % topical cream 1 applic TOPICAL BID #15 g 08/15/20 omeprazole 40 mg capsule,delayed 40 mg PO DAILY #90 cap 11/04/20 release trazodone 50 mg tablet See Rx Instructions .ROUTE 11/04/20 .COMPLEX #90 tab estradiol 2 mg tablet See Rx Instructions .ROUTE 01/21/21 .COMPLEX #90 tab blood sugar diagnostic See Rx Instructions .ROUTE 01/28/21 .MEDSUPPLY #100 each lancets 30 gauge See Rx Instructions .ROUTE 01/28/21 .MEDSUPPLY #200 each hydrochlorothiazide 25 mg tablet 25 mg PO DAILY #90 tab 01/30/21 lisinopril 20 mg tablet 20 mg PO BID 90 Days #180 tab 01/30/21 atorvastatin 40 mg tablet See Rx Instructions .ROUTE 02/18/21 .COMPLEX #90 tab bupropion HCl 75 mg tablet See Rx Instructions .ROUTE 02/18/21 .COMPLEX #180 tab cetirizine 10 mg tablet See Rx Instructions .ROUTE 02/18/21 .COMPLEX #90 tab metformin 1,000 mg tablet,extended 1,000 mg PO DAILY #30 tab 02/20/21 release 24hr carvedilol 25 mg tablet See Rx Instructions .ROUTE 03/24/21 .COMPLEX #60 tab Allergies Allergy/AdvReac Type Severity Reaction Status Date / Time codeine [CODEINE] Allergy Unknown I-HIVES Verified 01/23/21 14:40 - Worker's Comp Is this a Worker's Comp case?: No [facility] History - Hepatitis A Screen Drug use history?: No High risk sexual behaviors?: No History of sexually transmitted infection?: No Currently employed?: No Childcare worker?: No Do you have indoor plumbing?: Yes Do you have electricity?: Yes Attestation statement:: This patient has been screened for Hepatitis A risk factors. I have reviewed the patient's past medical history: Yes 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: Reports:: Depression, Diabetes Mellitus Type 2, Gastroesophageal Reflux Disease(GERD), Hyperlipidemia, Hypertension, Migraine, Palpitations Denies:: Cancer, Diabetes Mellitus Type 1, MRSA Other
--- NOTE | 2021-04-14 15:30 | PC.NURSE ---
PATIENT SENT TO ER PER Nick NATION APRN FOR FURTHER EVALUATION. REPORT GIVEN TO Lala HILL RN
[2021-04-14 15:37] VITALS: BP 157/101; PULSE 86; RESP 17; TEMP 37.2; O2SAT 97
[2021-04-14 15:45] LABS: Basophils # 0.1 K/mm3 (0-0.2); Basophils % 0.7 % (0.1-2.0); Eosinophils # 0.7 K/mm3 (0.0-0.4); Eosinophils % 6.6 % (0.1-12.0); Hematocrit 46.5 % (37.0-47.0); Hemoglobin 15.2 g/dL (12.2-16.2); Lymphocytes # 2.8 K/mm3 (0.7-4.5); Lymphocytes % 25.2 % (10-50); Mean Corpuscular HGB Conc 32.8 g/dL (31.8-35.4); Mean Corpuscular Volume 91.6 fl (81-99); Mean Platelet Volume 8.9 fl (7.4-10.4); Monocytes # 0.4 K/mm3 (0.1-1.0); Monocytes % 3.2 % (1.7-9.3); Neutrophils # 7.2 K/mm3 (1.8-7.8); Neutrophils % 64.3 % (37.0-80.0); Platelet Count 248 K/mm3 (142-424); Red Blood Count 5.08 M/mm3 (4.20-5.40); Red Cell Distribution Width 13.4 % (11.5-17.5); White Blood Count 11.1 K/mm3 (4.8-10.8)
[2021-04-14 15:46] LABS: Coronavirus 19, PCR Not Detected (NotDetected); Influenza A, PCR Not Detected (NotDetected); Influenza B, PCR Not Detected (NotDetected)
[2021-04-14 15:54] LABS: Alanine Aminotransferase 22 U/L (12-78); Albumin Level 3.7 g/dl (3.5-5.0); Albumin/Globulin Ratio 1.2 (1.1-1.8); Alkaline Phosphatase 120 U/L (38-126); Anion Gap 12.1 mEq/L (5-15); Aspartate Amino Transferase 27 U/L (14-36); Bilirubin,Total 0.6 mg/dl (0.2-1.3); Blood Urea Nitrogen 7 mg/dl (7-17); Calcium 8.6 mg/dl (8.4-10.2); Carbon Dioxide 24 mmol/L (22.0-30.0); Chloride 104 mmol/L (98-107); Creatinine Clearance Estimated 141 mL/min (50-200); Estimated Glomerular Filt Rate 106 ml/min (>60); GFR (African American) 128 ML/MIN (>60); Globulin 3.1 g/dL (1.3-3.2); Glucose 202 mg/dl (74-100); Lipase 45 U/L (23-300); Potassium 4.1 mmoL/L (3.5-5.1); Sodium 136 mmol/L (136-145); Total Protein,Serum 6.8 g/dl (6.3-8.2)
--- NOTE | 2021-04-14 16:39 | ECG_ITS ---
APPROVED REPORT Exam: Resting ECG HR:81 bpm ECG Measurements Heart Rate 81 AXES FL 148 P 60 QRSd 82 QRS 51 QT 384 T 68 QTc 446 Conclusion Normal sinus rhythm Normal ECG Electronically signed by : Mayito Wray MD 04/15/2021 10:53:31
--- NOTE | 2021-04-14 16:59 | HMH.EDGENADL ---
ED Disposition Clinical Impression: Gastroenteritis Abdominal pain Qualifiers: Abdominal location: unspecified location Qualified Code(s): R10.9 - Unspecified abdominal pain Disposition: Home, Self-Care Condition on Discharge: Good Additional Instructions: Clear liquid diet for 24 hours and then slowly advance. Stay well-hydrated. Follow-up with your PCP in 2 to 3 days. Referrals: Naif Childress MD [Primary Care Provider] - 3 days Time of Disposition: 17:04 - Critical Care Critical Care Time: No Attestation: On 04/14/21, the high probability of a clinically significant, sudden or life threatening deterioration of the following system(s) required my full and direct attention, intervention and personal management. The time I documented below is in addition to time spent performing reported procedures but includes the following listed in this critical care notation. Medical Decision Making - Medical Records Medical records reviewed: Yes: I reviewed the patient's medical records. - Blake Inquiry Pt receiving controlled substance: No Vital Signs: 04/14/21 14:30 04/14/21 15:37 Temperature 98.2 F 99.0 F Temperature Source Oral Oral Pulse Rate [Left Brachial] 92 H 86 Respiratory Rate 18 17 Blood Pressure [Left Arm] 195/111 H 157/101 H Blood Pressure Mean [Left Arm] 139 119 Blood Pressure Source [Left Arm] Automatic Cuff Blood Pressure Position [Left Arm] Sitting 02 Sat by Pulse Oximetry 97 97 Oxygen Delivery Method Room Air - Lab Data Lab results reviewed: Yes: I reviewed the patient's lab results. Lab Results 04/14/21 15:30: WBC 11.1 H, RBC 5.08, Hgb 15.2, Hct 46.5, MCV 91.6, MCH 30.0, MCHC 32.8, RDW 13.4, Plt Count 248, MPV 8.9, Neut % (Auto) 64.3, Lymph % (Auto) 25.2, Gove % (Auto) 3.2, Eos % (Auto) 6.6, Baso % (Auto) 0.7, Neut # (Auto) 7.2, Lymph # (Auto) 2.8, Gove # (Auto) 0.4, Eos # (Auto) 0.7 H, Baso # (Auto) 0.1 04/14/21 15:30: Sodium 136, Potassium 4.1, Chloride 104, Carbon Dioxide 24, Anion Gap 12.1, BUN 7, Creatinine 0.60, Estimated Creat Clear 141, Estimated GFR 106, Est GFR ( Amer) 128, Glucose 202 H, Calcium 8.6, Total Bilirubin 0.6, AST 27, ALT 22, Alkaline Phosphatase 120, Total Protein 6.8, Albumin 3.7, Globulin 3.1, Albumin/Globulin Ratio 1.2, Lipase 45 04/14/21 15:30: SARS-CoV-2 (PCR) Not detected, Influenza A Untype (PCR) Not detected, Influenza Type B (PCR) Not detected Result diagrams: 04/14/21 15:30 04/14/21 15:30 Medical Decision Narrative: 50yo F evaluated for ongoing abdominal pain. Patient is in no acute distress on initial evaluation. Laboratory studies are completed and unremarkable, to include the patient's Covid swab. Discussed with the patient that we could reimage her abdomen but the patient declines at this time. Patient's kidney function is a creatinine of 0.60. I reviewed the patient's work-up and CT from her previous evaluation on . CT consistent with enteritis. Patient discharged home in stable condition. General Adult HPI - General Chief complaint: Nausea/Vomiting/Diarrhea Stated complaint: stomach problems Time Seen by Provider: 04/14/21 15:13 Mode of Arrival: Ambulatory Limitations: No Limitations Description of Symptoms (Recalled from ER Triage Doc. by RN): c/o cramping and diarrhea for once week - History of Present Illness HPI narrative: 50yo F presents the emergency department from [facility] [[email or web address] secondary to abdominal pain. Patient was evaluated emergency department for abdominal pain. Work-up was benign at that time to include a CT of the abdomen pelvis with IV contrast. She states that her condition has not improved. She continues to have nausea with vomiting and diarrhea. She denies any fever. Patient has a history of pancreatitis x1 and is concerned that it may be recurrent. She denies any known sick contact. - Related Data Previous Rx's Medication Instructions Recorded [place]-3 Fatty Acids/Fish Oil
[2021-04-14 17:21] VITALS: BP 105/83; PULSE 80; RESP 19; TEMP 37.2; O2SAT 97
== END 2021-04-14 17:22 | disposition home or self-care (01) ==
LOC: UTC 15:28 → ER 15:30
PROVIDERS: Emergency Provider Family Medicine; PCP Emergency Medicine
DX: K52.9 Noninfective gastroenteritis and colitis, unspecified (principal); Z20.822 Contact with and (suspected) exposure to COVID-19; K21.9 Gastro-esophageal reflux disease without esophagitis; E11.9 Type 2 diabetes mellitus without complications; E78.5 Hyperlipidemia, unspecified; I10 Essential (primary) hypertension; F33.1 Major depressive disorder, recurrent, moderate; Z87.891 Personal history of nicotine dependence
CPT/HCPCS: 80053; 83690; 85025; 93005; 99283; C9803; U0003; U0005

== ENCOUNTER → 2021-04-23 14:31 | Outpatient (CLI) | payer MEDICARE, MEDICAID, SELFPAY ==
--- NOTE | 2021-04-23 14:31 | US_ITS ---
PROCEDURE: MM DIG MAMM BI DX W/CAD Digital Breast Tomosynthesis Included U/S BREAST RIGHT COMPLETE U/S LEFT BREAST COMPLETE CLINICAL INDICATION: SCREENING Follow-up nodules, follow-up biopsy COMPARISON: MG DMSB DIG MAMM-SCREEN LANRE from 06/22/2016 MG SCBI MM Dig screening mamm BI w/CAD from 11/01/2017 MG MM DIG SCREENING MAMM BI W/CAD from 04/23/2020 US US BREAST RT COMPLETE from 11/05/2020 MG MM DIG MAMM DX UNILAT RT CAD from 11/05/2020 MG MM DIG MAMM DX UNILAT RT CAD from 12/03/2020 US US FNA BREAST from 12/03/2020 US US BREAST RT COMPLETE from 04/23/2021 US US BREAST LT COMPLETE from 04/23/2021 TECHNIQUE: Standard CC and MLO images and 3D Tomosynthesis was obtained. R2 CAD reviewed. FINDINGS: The breasts are heterogeneously dense which may obscure small masses. Right breast: Recurrent 8 mm macrolobular nodule in the 9 o'clock region of the right breast 3 cm from the nipple similar to the pre FNA exam 11/05/2020. There are numerous other benign-appearing nodules smaller than this 1 at 9 o'clock. These do not appear significantly changed. Numerous cysts are demonstrated by ultrasound likely corresponding to these nodules. No malignant appearing mass or malignant-appearing microcalcification. Right breast ultrasound numerous cyst including a 4 mm cyst at 12 o'clock, 3 mm cyst at 1 o'clock near the nipple, four mm cyst at 7 o'clock near the nipple, septated 8 mm cyst at 9 o'clock near the nipple similar to 12/03/2020 pre aspiration images, 5 mm cyst at 10 o'clock mid breast, 3 mm cyst in the retroareolar region. No suspicious nodules evident. Left breast: No malignant appearing mass or malignant-appearing microcalcification. IMPRESSION: Recurrence of right breast septated cyst. Other multiple cysts also noted in the right breast. Benign findings. BI-RAD Category: 2 Benign Finding FOLLOW-UP: 1 YR 1 Year Follow-up (A letter has been sent to the patient regarding results of the study.) Dictated by: Gonzalo Peña MD 04/30/2021 09:29 Gonzalo Peña MD in [place] 04/30/2021 09:29
== END ==
PROVIDERS: PCP Emergency Medicine; Visit Provider Surgery
DX: N60.01 Solitary cyst of right breast (principal); N60.02 Solitary cyst of left breast; R92.8 Other abnormal and inconclusive findings on diagnostic imaging of breast
CPT/HCPCS: 76641; 77062; 77066; G0279

== ENCOUNTER 2021-06-09 09:56 | Emergency (ER) | payer MEDICARE, MEDICAID, SELFPAY ==
[2021-06-09 11:25] VITALS: BP 124/75; PULSE 82; RESP 20; TEMP 36.8; O2SAT 98; BMI 29.6
--- NOTE | 2021-06-09 11:40 | HMH.EDUTC ---
[facility] Disposition Clinical Impression: Bronchitis, Viral syndrome Pharyngitis Qualifiers: Pharyngitis/tonsillitis etiology: unspecified etiology Qualified Code(s): J02.9 - Acute pharyngitis, unspecified Disposition: Home, Self-Care Condition on Discharge: Good Instructions: DI for Pharyngitis/Tonsillopharyngitis -- Adult, DI for Acute Bronchitis, DI for COVID-19 (Suspected or Confirmed ), Preventing the Spread of Coronavirus Discharge Instructions Additional Instructions: Drink plenty of fluids. Take tylenol or ibuprofen for pain or fever. Take the medications as directed. Follow up with your regular doctor. GO TO THE ER FOR ANY WORSENING SYMPTOMS Quarantine until you know the results of your covid-19 test. If it is positive, the health department should call you and give you further instructions about your length of Quarantine and other things. Notify your school or workplace of your results and follow their instructions regarding return to work/school. Prescriptions: Brompheniramine/Pseudoephed/Dm [Bromfed Dm Cough Syrup] 5 ml PO Q6HP PRN #240 ml PRN Reason: Cough Transmission Status: Received by [facility] ([facility]) #[id number] guaiFENesin [Mucinex 600mg tablet] 1 - 2 tab PO BIDP PRN #30 tab PRN Reason: Congestion Transmission Status: Received by [facility] ([facility] #[id number] Azithromycin [Z-Pete 250mg Tab*] 250 mg PO UD DOSE PK #6 tab Transmission Status: Received by [facility] ([facility] #[id number] Referrals: Naif Childress MD [Primary Care Provider] - Forms: Work/School Release Time of Disposition: 12:13 Medical Decision Making - Medical Records Medical records reviewed: No: I reviewed the patient's medical records. - Blake Inquiry Pt receiving controlled substance: No Vital Signs: 06/09/21 11:25 06/09/21 12:28 Temperature 98.2 F 98.2 F Temperature Source Oral Pulse Rate 82 Pulse Rate [Left] 82 Respiratory Rate 20 20 Blood Pressure 124/75 Blood Pressure [Right Arm] 124/75 Blood Pressure Mean [Right Arm] 91 02 Sat by Pulse Oximetry 98 - Lab Data Lab results reviewed: Yes: I reviewed the patient's lab results. Lab Results 06/09/21 11:26: Strep Scn Rapid Clinic Negative Orders (Tests/Meds): ED MEDICATIONS Discontinued Medications Generic Name Dose Route Start Last Admin Trade Name Daniel PRN Reason Stop Dose Admin Ceftriaxone Sodium 1 gm 06/09/21 12:06 06/09/21 12:22 Ceftriaxone 1gm Vial IM 06/09/21 12:07 1 gm ONCE ONE Administration Lidocaine HCl 0 ml 06/09/21 12:06 06/09/21 12:24 Lidocaine 1% 5ml Pf Vial IM 06/09/21 12:07 Not Given ONCE ONE Lidocaine HCl 2.5 ml 06/09/21 12:20 06/09/21 12:22 Lidocaine 1% 10ml Mdv IM 06/09/21 12:21 2.5 ml ONCE ONE Administration Methylprednisolone Sodium Succinate 125 mg 06/09/21 12:06 06/09/21 12:22 Methylprednisolone Sod Succ 125mg Vial IM 06/09/21 12:07 125 mg ONCE ONE Administration ORDERS Category Date Time Status Covid-19 Nasal PCR ([facility]) Routine Lab 06/09/21 12:08 Received Strep Screen Confirmation Routine Micro 06/09/21 11:26 Received [facility] HPI - General Stated complaint: fever, chills, sore throat, cough, congestion Time Seen by Provider: 06/09/21 11:40 Mode of Arrival: Ambulatory Source of Information: Patient Limitations: No Limitations Description of Symptoms (Recalled from Triage Doc. by RN): pt c/o a sore throat, myalgia and chills. ongoing since 06/04 HEENT Symptoms (Recalled from RN notes): Yes (sore throat) Resp Symptoms (Recalled from RN notes): No Skin Symptoms (Recalled from RN notes): No MS Symptoms (Recalled from RN notes): No Functional Status (Recalled from RN notes): wnl - History of Present Illness Provider Complaint: She c/o low grade fever, chills, body aches, productive cough with greenish sputum, and sore throat for the past 2 days. She has been fully vacinated against covid-19. She is unsure about any sick contacts because sh
[2021-06-09 12:28] VITALS: BP 124/75; PULSE 82; RESP 20; TEMP 36.8
[2021-06-09 21:11] LABS: UTC Strep Screen (Rapid) Negative (Negative)
== END 2021-06-09 12:34 | disposition home or self-care (01) ==
PROVIDERS: Emergency Provider Nurse Practitioner Family; PCP Emergency Medicine
DX: J20.9 Acute bronchitis, unspecified (principal); B34.9 Viral infection, unspecified; K21.9 Gastro-esophageal reflux disease without esophagitis; I10 Essential (primary) hypertension; E78.5 Hyperlipidemia, unspecified; F33.1 Major depressive disorder, recurrent, moderate; Z87.891 Personal history of nicotine dependence
CPT/HCPCS: G0463; 87880; 96372; 99202; C9803; U0003; U0005

== ENCOUNTER → 2021-07-01 15:38 | Outpatient (CLI) | payer MEDICARE, MEDICAID, SELFPAY ==
[2021-07-01 15:57] LABS: Alanine Aminotransferase 23 U/L (12-78); Albumin Level 3.9 g/dl (3.5-5.0); Albumin/Globulin Ratio 1.3 (1.1-1.8); Alkaline Phosphatase 139 U/L (38-126); Amylase 80 U/L (30-110); Anion Gap 13.9 mEq/L (5-15); Aspartate Amino Transferase 30 U/L (14-36); Bilirubin,Total 0.8 mg/dl (0.2-1.3); Blood Urea Nitrogen 5 mg/dl (7-17); Calcium 8.7 mg/dl (8.4-10.2); Carbon Dioxide 23 mmol/L (22.0-30.0); Chloride 102 mmol/L (98-107); Chol/HDL Ratio 3.7 (1-3.5); Cholesterol 156 mg/dl (140-200); Estimated Glomerular Filt Rate 88 ml/min (>60); GFR (African American) 107 ML/MIN (>60); Glucose 202 mg/dl (74-100); HDL Cholesterol 42 mg/dl (40-60); Lipase 222 U/L (23-300); Potassium 3.9 mmoL/L (3.5-5.1); Sodium 135 mmol/L (136-145); Total Protein,Serum 6.9 g/dl (6.3-8.2); Triglycerides 485 mg/dl (30-150)
[2021-07-01 16:05] LABS: Basophils # 0.1 K/mm3 (0-0.2); Basophils % 1.4 % (0.1-2.0); Eosinophils # 0.1 K/mm3 (0.0-0.4); Eosinophils % 1.9 % (0.1-12.0); Hematocrit 44.1 % (37.0-47.0); Hemoglobin 14.4 g/dL (12.2-16.2); Hemoglobin A1C 7.3 % (4.0-6.0); Lymphocytes % 33.5 % (10-50); Mean Corpuscular HGB Conc 32.7 g/dL (31.8-35.4); Mean Corpuscular Hemoglobin 30.3 pg (27.0-31.2); Mean Corpuscular Volume 92.5 fl (81-99); Mean Platelet Volume 10.2 fl (7.4-10.4); Monocytes # 0.3 K/mm3 (0.1-1.0); Monocytes % 4.6 % (1.7-9.3); Neutrophils # 3.5 K/mm3 (1.8-7.8); Neutrophils % 58.6 % (37.0-80.0); Platelet Count 251 K/mm3 (142-424); Red Blood Count 4.76 M/mm3 (4.20-5.40); Red Cell Distribution Width 13.3 % (11.5-17.5)
[2021-07-01 16:07] LABS: Direct LDL Cholesterol 57.33 mg/dL (100-129)
[2021-07-01 16:14] LABS: Free T4 (Free Thyroxine) 0.93 ng/dl (0.78-2.19)
== END ==
PROVIDERS: Visit Provider Emergency Medicine
DX: E11.9 Type 2 diabetes mellitus without complications (principal); K85.90 Acute pancreatitis without necrosis or infection, unspecified; L60.0 Ingrowing nail; R53.83 Other fatigue; Z79.84 Long term (current) use of oral hypoglycemic drugs
CPT/HCPCS: 80053; 80061; 82150; 83036; 83690; 84439; 84443; 85025

== ENCOUNTER → 2021-07-21 14:38 | Outpatient (CLI) | payer MEDICARE, MEDICAID, SELFPAY | PROVIDERS: Visit Provider Nurse Practitioner | DX: Z20.822 Contact with and (suspected) exposure to COVID-19 (principal) | CPT/HCPCS: C9803; U0003; U0005 ==

== ENCOUNTER 2021-10-24 17:44 | Emergency (ER) | payer MEDICARE, MEDICAID, SELFPAY ==
[2021-10-24 17:50] VITALS: BP 161/99; PULSE 97; RESP 17; TEMP 37.1; O2SAT 98; BMI 29.9
[2021-10-24 18:03] VITALS: BP 161/99; PULSE 97; RESP 17; TEMP 37.1; O2SAT 98
--- NOTE | 2021-10-24 18:04 | HMH.EDUTC ---
[facility] Disposition Clinical Impression: Otitis media Qualifiers: Otitis media type: suppurative Chronicity: acute Laterality: bilateral Recurrence: non-recurrent Spontaneous tympanic membrane rupture: without spontaneous rupture Qualified Code(s): H66.003 - Acute suppurative otitis media without spontaneous rupture of ear drum, bilateral Disposition: Home, Self-Care Condition on Discharge: Good Instructions: DI for Otitis Media (Middle Ear Infection)-Child Prescriptions: predniSONE [Deltasone 20mg tablet] 20 mg PO BID 5 Days #10 tab Transmission Status: Pending to [facility] #[id number] Cefdinir [Omnicef 300mg Capsule] 300 mg PO BID #20 cap Transmission Status: Pending to [facility] #[id number] Referrals: Naif Childress MD [Primary Care Provider] - Time of Disposition: : Medical Decision Making - Blake Inquiry Pt receiving controlled substance: No Vital Signs: 10/24/21 17:50 10/24/21 18:03 Temperature 98.8 F 98.8 F Temperature Source Oral Pulse Rate 97 H Pulse Rate [Right Brachial] 97 H Respiratory Rate 17 17 Blood Pressure 161/99 H Blood Pressure [Right Arm] 161/99 H Blood Pressure Mean [Right Arm] 119 Blood Pressure Source [Right Arm] Automatic Cuff Blood Pressure Position [Right Arm] Sitting 02 Sat by Pulse Oximetry 98 Oxygen Delivery Method Room Air - Lab Data Lab results reviewed: Yes: I reviewed the patient's lab results. Lab Results 10/24/21 17:55: Group A Strep Rapid Negative Orders (Tests/Meds): ED MEDICATIONS Discontinued Medications Generic Name Dose Route Start Last Admin Trade Name Daniel PRN Reason Stop Dose Admin Ceftriaxone Sodium 1 gm 10/24/21 18:07 10/24/21 18:15 Ceftriaxone 1gm Vial IM 10/24/21 18:08 1 gm ONCE ONE Administration Lidocaine HCl 0 ml 10/24/21 18:07 10/24/21 18:15 Lidocaine 1% 5ml Pf Vial IM 10/24/21 18:08 2 ml ONCE ONE Administration Methylprednisolone Acetate 80 mg 10/24/21 18:07 10/24/21 18:15 Methylprednisolone Acetate 80mg/Ml Vial IM 10/24/21 18:08 80 mg ONCE ONE Administration ORDERS Category Date Time Status Strep Screen Confirmation Stat Micro 04/15/22 17:55 Received [facility] HPI - General Stated complaint: sore throat, FOOTE, lynn Time Seen by Provider: 10/24/21 18:04 Mode of Arrival: Ambulatory Source of Information: Patient Limitations: No Limitations Description of Symptoms (Recalled from Triage Doc. by RN): PATIENT C/O SORE THROAT AND EAR PAIN X 2 DAYS HEENT Symptoms (Recalled from RN notes): Yes Resp Symptoms (Recalled from RN notes): No Skin Symptoms (Recalled from RN notes): No MS Symptoms (Recalled from RN notes): No Functional Status (Recalled from RN notes): WNL - History of Present Illness Provider Complaint: Bilateral ear pain and sore throat X 2 days. Not sure about fever. Has been exposed to strep. Onset (ago): day(s) (2) Relieving factors: none Exacerbating factors: none Associated symptoms: denies other symptoms Treatments prior to arrival: none - Related Data Previous Rx's Medication Instructions Recorded peg 3350-electrolytes 236 240 ml PO Q10M #4000 ml 06/13/21 gram-22.74 gram-6.74 gram-5.86 gram solution omeprazole 40 mg capsule,delayed 40 mg PO DAILY #90 cap 06/27/21 release carvedilol 25 mg tablet See Rx Instructions .ROUTE 07/01/21 .COMPLEX #120 tab cetirizine 10 mg tablet See Rx Instructions .ROUTE 07/01/21 .COMPLEX #60 tab estradiol 2 mg tablet See Rx Instructions .ROUTE 07/01/21 .COMPLEX #60 tab hydrochlorothiazide 25 mg tablet 25 mg PO DAILY #60 tab 07/01/21 sitagliptin 50 mg-metformin 1,000 See Rx Instructions .ROUTE 07/28/21 mg tablet .COMPLEX #60 tab semaglutide 1 mg/dose (4 mg/3 mL) See Rx Instructions .ROUTE 08/01/21 subcutaneous pen injector .COMPLEX #3 ml atorvastatin 40 mg tablet See Rx Instructions .ROUTE 08/26/21 .COMPLEX #60 tab bupropion HCl 75 mg tablet See Rx Instructions .ROUTE 08/26/21 .COM
[2021-10-24 18:13] LABS: Strep Scrn Group A (Rapid) Negative (Negative)
== END 2021-10-24 18:29 | disposition home or self-care (01) ==
PROVIDERS: Emergency Provider Physician Assistant; PCP Emergency Medicine
DX: H66.003 Acute suppurative otitis media without spontaneous rupture of ear drum, bilateral (principal); E11.9 Type 2 diabetes mellitus without complications; K21.9 Gastro-esophageal reflux disease without esophagitis; E78.5 Hyperlipidemia, unspecified; I10 Essential (primary) hypertension; F17.210 Nicotine dependence, cigarettes, uncomplicated
CPT/HCPCS: 87430; 96372; 99213; G0463; J0696; J1040

== ENCOUNTER → 2021-10-28 12:12 | Outpatient (CLI) | payer MEDICARE, MEDICAID, SELFPAY ==
[2021-10-28 19:12] LABS: Hemoglobin A1C 9.3 % (4.0-6.0)
== END ==
PROVIDERS: PCP Emergency Medicine; Visit Provider Nurse Practitioner Family
DX: E11.9 Type 2 diabetes mellitus without complications (principal); Z79.84 Long term (current) use of oral hypoglycemic drugs
CPT/HCPCS: 82043; 83036

== ENCOUNTER → 2021-12-30 20:51 | Outpatient (CLI) | payer MEDICARE, MEDICAID, SELFPAY ==
[2021-12-30 21:02] LABS: Microscopic, Urine URINE MICROSCOPIC (MICROSCOPIC)
[2021-12-30 21:11] LABS: Appearance,Urine CLEAR (Clear); Bilirubin,Urine Negative (Negative); Blood, Urine Negative (Negative); Color,Urine YELLOW (Yellow); Glucose,Urine (UA) 3+ (Negative); Ketones,Urine Negative (Negative); Leukocyte Esterase,Urine Negative (Negative); Nitrate,Urine Negative (Negative); Protein,Urine Negative (Negative); Specific Gravity, Urine <= 1.005 (1.005-1.030); Urobilinogen,Urine 0.2 EU/dl (0.2)
[2021-12-30 21:38] LABS: Yeast,Urine Occasional /lpf
== END ==
PROVIDERS: PCP Nurse Practitioner Family; Visit Provider Nurse Practitioner Family
DX: N39.0 Urinary tract infection, site not specified (principal)
CPT/HCPCS: 81001

== ENCOUNTER 2022-01-06 19:04 | Emergency (ER) | payer MEDICARE, MEDICAID, SELFPAY ==
[2022-01-06 19:22] VITALS: BP 155/108; PULSE 90; RESP 16; TEMP 36.8; O2SAT 98; BMI 30.9
--- NOTE | 2022-01-06 19:22 | HMH.EDUTC ---
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 - Blake Inquiry Pt receiving controlled substance: No Vital Signs: 01/06/22 19:22 Temperature 98.3 F Temperature Source Oral Pulse Rate [Left] 90 Respiratory Rate 16 Blood Pressure [Right Arm] 155/108 H Blood Pressure Mean [Right Arm] 123 02 Sat by Pulse Oximetry 98 Medical Decision Narrative: She was transferred to the Er due to the elevated blood sugar and the probable need for IV fluids, lab work, and insulin. [facility] HPI - General Stated complaint: sugar 508 Time Seen by Provider: 01/06/22 19:22 - History of Present Illness Provider Complaint: She is here because her blood sugars have been running from 450 to over 500 for the past 3 days. She is a known diabetic. She states that her doctor changed her oral medicine (she cannot remember the name of it) to Farxiga. Since she switched her blood sugars have ran high like this. She has never been on insulin and has no way to treat this high of a blood sugar herself. She denies any other complaints. She states that she feels fine . - Related Data Previous Rx's Medication Instructions Recorded omeprazole 40 mg capsule,delayed 40 mg PO DAILY #90 cap 06/27/21 release carvedilol 25 mg tablet See Rx Instructions .ROUTE 07/01/21 .COMPLEX #120 tab cetirizine 10 mg tablet See Rx Instructions .ROUTE 07/01/21 .COMPLEX #60 tab estradiol 2 mg tablet See Rx Instructions .ROUTE 07/01/21 .COMPLEX #60 tab hydrochlorothiazide 25 mg tablet 25 mg PO DAILY #60 tab 07/01/21 dapagliflozin 5 mg tablet 5 mg PO DAILY #30 tab 10/29/21 atorvastatin 40 mg tablet See Rx Instructions .ROUTE 12/29/21 .COMPLEX #60 tab bupropion HCl 75 mg tablet See Rx Instructions .ROUTE 12/29/21 .COMPLEX #120 tab lisinopril 20 mg tablet See Rx Instructions .ROUTE 12/29/21 .COMPLEX #120 tab trazodone 50 mg tablet See Rx Instructions .ROUTE 12/29/21 .COMPLEX #60 tab pioglitazone 15 mg tablet 15 mg PO DAILY #30 tab 12/30/21 Allergies Allergy/AdvReac Type Severity Reaction Status Date / Time codeine [CODEINE] Allergy Unknown I-HIVES Verified 01/06/22 19:25 [facility] History - Hepatitis A Screen Attestation statement:: This patient has been screened for Hepatitis A risk factors. I have reviewed the patient's past medical history: Yes 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: Reports:: Depression, Diabetes Mellitus Type 2, Gastroesophageal Reflux Disease(GERD), Hyperlipidemia, Hypertension, Migraine, Palpitations Denies:: Cancer, Diabetes Mellitus Type 1, Internal Pacemaker, MRSA Other 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: Reports: Anemia, Cataracts, Hormone Therapy Laterality Cases: Bilateral: Tonsillectomy Other Surgeries: Yes: No Previous Surgery, Cardiac Catheterization, Cholecystectomy, Colonoscopy, EGD, Hysterectomy-Total, Tubal Ligation, Other. No: Pacemaker Amputation: No Fractures: No Comment: breast aspiration - Social History Smoking Status: Current some day smoker Tobacco Type: e-cigarettes # Packs/Day (cigarettes): 1 Alcohol Intake: never Alcohol Intake Frequency:: other Substance Use Type: denies use Occupational Status: employed Housing: house Household Members: none - Psychiatric History Pschychiatric History:: Reports:: Depression Family Hx:: Unable to obtain Comment: Father- of [place]@50 ROS Obtained: Yes All systems reviewed & no additional complaints - Constitutional Constitutional: Denies chills, Denies fever(s) - E
[2022-01-06 19:52] VITALS: BMI 31.7
[2022-01-06 19:56] VITALS: BP 190/100; PULSE 89; RESP 16; TEMP 36.8; O2SAT 99; BMI 31.7
[2022-01-06 20:00] LABS: Microscopic, Urine URINE MICROSCOPIC (MICROSCOPIC)
[2022-01-06 20:04] LABS: Basophils # 0.1 K/mm3 (0-0.2); Basophils % 1.1 % (0.1-2.0); Eosinophils # 0.1 K/mm3 (0.0-0.4); Eosinophils % 1.3 % (0.1-12.0); Hematocrit 45.7 % (37.0-47.0); Hemoglobin 15.6 g/dL (12.2-16.2); Lymphocytes # 2.7 K/mm3 (0.7-4.5); Lymphocytes % 35.2 % (10-50); Mean Corpuscular HGB Conc 34.2 g/dL (31.8-35.4); Mean Corpuscular Hemoglobin 30.3 pg (27.0-31.2); Mean Corpuscular Volume 88.6 fl (81-99); Mean Platelet Volume 8.5 fl (7.4-10.4); Monocytes # 0.4 K/mm3 (0.1-1.0); Monocytes % 4.8 % (1.7-9.3); Neutrophils # 4.3 K/mm3 (1.8-7.8); Neutrophils % 57.7 % (37.0-80.0); Platelet Count 196 K/mm3 (142-424); Red Blood Count 5.16 M/mm3 (4.20-5.40); Red Cell Distribution Width 13.4 % (11.5-17.5); White Blood Count 7.5 K/mm3 (4.8-10.8)
[2022-01-06 20:07] LABS: Appearance,Urine CLEAR (Clear); Bilirubin,Urine Negative (Negative); Blood, Urine Negative (Negative); Color,Urine YELLOW (Yellow); Glucose,Urine (UA) 3+ (Negative); Ketones,Urine Negative (Negative); Leukocyte Esterase,Urine Negative (Negative); Nitrate,Urine Negative (Negative); Protein,Urine Negative (Negative); Urobilinogen,Urine 0.2 EU/dl (0.2)
[2022-01-06 20:11] LABS: Alanine Aminotransferase 44 U/L (12-78); Albumin/Globulin Ratio 1.3 (1.1-1.8); Alkaline Phosphatase 132 U/L (38-126); Aspartate Amino Transferase 59 U/L (14-36); Bilirubin,Total 0.4 mg/dl (0.2-1.3); Blood Urea Nitrogen 11 mg/dl (7-17); Calcium 8.7 mg/dl (8.4-10.2); Carbon Dioxide 27 mmol/L (22.0-30.0); Chloride 97 mmol/L (98-107); Creatinine Clearance Estimated 126 mL/min (50-200); Estimated Glomerular Filt Rate 88 ml/min (>60); GFR (African American) 107 ML/MIN (>60); Globulin 3.2 g/dL (1.3-3.2); Glucose 335 mg/dl (74-100); Sodium 133 mmol/L (136-145); Total Protein,Serum 7.2 g/dl (6.3-8.2)
[2022-01-06 20:22] LABS: Acetone, Serum (Rapid) None Detected (None Detect)
[2022-01-06 20:33] VITALS: BP 184/99; PULSE 70; RESP 16; TEMP 36.8; O2SAT 99
== END 2022-01-06 20:34 | disposition home or self-care (01) ==
LOC: UTC 19:28 → ER 19:29
PROVIDERS: Emergency Provider Emergency Medicine; PCP Emergency Medicine
DX: E11.65 Type 2 diabetes mellitus with hyperglycemia (principal)
CPT/HCPCS: 80053; 81001; 82009; 85025; 96360; 99283

== ENCOUNTER 2022-01-24 13:28 | Emergency (ER) | payer MEDICARE, MEDICAID, SELFPAY ==
[2022-01-24 13:29] VITALS: BP 147/100; PULSE 105; RESP 20; TEMP 37.1; O2SAT 95; BMI 30.9
[2022-01-24 13:47] VITALS: BP 162/101; PULSE 99; RESP 20; TEMP 37.5; O2SAT 99; BMI 30.9
--- NOTE | 2022-01-24 14:30 | HMH.EDUTC ---
[facility] [place] Disposition Clinical Impression: Viral syndrome, Viral pharyngitis Disposition: Home, Self-Care Condition on Discharge: Good Instructions: DI for COVID-19 (Suspected or Confirmed ), Preventing the Spread of Coronavirus Discharge Instructions Additional Instructions: Drink plenty of fluids. Take tylenol or ibuprofen for pain or fever. Take the medications as directed. Follow up with your regular doctor. GO TO THE ER FOR ANY WORSENING SYMPTOMS Quarantine until you know the results of your covid-19 test. Notify your school or workplace of your results and follow their instructions regarding return to work/school. Prescriptions: Ondansetron [Zofran 4mg ODT] 4 mg PO Q8HP PRN #12 tab PRN Reason: Nausea Transmission Status: Received by [facility] #[id number] Benzonatate [Benzonatate 100mg cap] 100 mg PO TIDP PRN #30 cap PRN Reason: Cough Transmission Status: Received by [facility] #[id number] Referrals: Naif Childress MD [Primary Care Provider] - Forms: Work/School Release Time of Disposition: 14:36 Medical Decision Making - Medical Records Medical records reviewed: No: I reviewed the patient's medical records. - Blake Inquiry Pt receiving controlled substance: No Vital Signs: 01/24/22 13:29 01/24/22 13:47 01/24/22 14:52 Temperature 98.7 F 99.5 F 98.7 F Temperature Source Oral Oral Oral Pulse Rate 100 H Pulse Rate [Radial] 105 H 99 H Respiratory Rate 20 20 18 Blood Pressure 143/95 H Blood Pressure [Right Arm] 147/100 H 162/101 H Blood Pressure Mean [Right Arm] 115 121 Blood Pressure Source Automatic Cuff Blood Pressure Source [Right Arm] Automatic Cuff Blood Pressure Position Sitting Blood Pressure Position [Right Arm] Sitting Sitting 02 Sat by Pulse Oximetry 95 99 Oxygen Delivery Method Room Air Room Air Room Air - Lab Data Lab Results 01/24/22 14:23: Strep Scn Rapid Clinic Negative Orders (Tests/Meds): ORDERS Category Date Time Status Strep Screen Confirmation Stat Micro 01/24/22 14:23 Received [facility] [place] HPI - General Stated complaint: body aches headache fever sore throat Time Seen by Provider: 01/24/22 14:30 Mode of Arrival: Ambulatory Source of Information: Patient Limitations: No Limitations Description of Symptoms (Recalled from Triage Doc. by RN): PT C/O GENERALIZED BODY ACHES, HEADACHES, LOWER BACK PAIN, SORETHROAT, STARTING TODAY. 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 She has a cough, but she denies any shortness of breath. - Related Data Previous Rx's Medication Instructions Recorded omeprazole 40 mg capsule,delayed 40 mg PO DAILY #90 cap 06/27/21 release carvedilol 25 mg tablet See Rx Instructions .ROUTE 07/01/21 .COMPLEX #120 tab cetirizine 10 mg tablet See Rx Instructions .ROUTE 07/01/21 .COMPLEX #60 tab estradiol 2 mg tablet See Rx Instructions .ROUTE 07/01/21 .COMPLEX #60 tab hydrochlorothiazide 25 mg tablet 25 mg PO DAILY #60 tab 07/01/21 dapagliflozin 5 mg tablet 5 mg PO DAILY #30 tab 10/29/21 atorvastatin 40 mg tablet See Rx Instructions .ROUTE 12/29/21 .COMPLEX #60 tab bupropion HCl 75 mg tablet See Rx Instructions .ROUTE 12/29/21 .COMPLEX #120 tab lisinopril 20 mg tablet See Rx Instructions .ROUTE 12/29/21 .COMPLEX #120 tab trazodone 50 mg tablet See Rx Instructions .ROUTE 12/29/21 .COMPLEX #60 tab pioglitazone 15 mg tablet 15 mg PO DAILY #30 tab 12/30/21 Benzonatate [Benzonatate 100mg 100 mg PO TIDP PRN #30 cap 01/24/22 cap] Ondansetron [Zofran 4mg ODT] 4 mg PO Q8HP PRN #12 tab 01/24/22 Allergies Allergy/AdvReac Type Severity Reaction Status Date / Time codeine [CODEINE] Allergy Unknown I-HIVES Verified 01/06/22 19:25 [facility] History - Hepatitis A Screen Attestation statement:: This patient has been screene
[2022-01-24 14:35] LABS: UTC Strep Screen (Rapid) Negative (Negative)
[2022-01-24 14:52] VITALS: BP 143/95; PULSE 100; RESP 18; TEMP 37.1; O2SAT 95
== END 2022-01-24 14:53 | disposition home or self-care (01) ==
PROVIDERS: Emergency Provider Nurse Practitioner Family; PCP Emergency Medicine
DX: U07.1 COVID-19 (principal); J02.8 Acute pharyngitis due to other specified organisms
CPT/HCPCS: 87880; 99212; C9803; G0463; U0003; U0005

== ENCOUNTER → 2022-02-09 16:42 | Outpatient (CLI) | payer MEDICARE, MEDICAID, SELFPAY | PROVIDERS: PCP Physician Assistant; Visit Provider Physician Assistant | DX: N39.0 Urinary tract infection, site not specified (principal); N89.8 Other specified noninflammatory disorders of vagina | CPT/HCPCS: 87086; 87210 ==

== ENCOUNTER → 2022-05-14 11:15 | Outpatient (CLI) | payer MEDICARE, MEDICAID, SELFPAY ==
[2022-05-14 14:42] LABS: Coronavirus 19, PCR Not Detected (NotDetected); Influenza A, PCR Not Detected (NotDetected); Influenza B, PCR Not Detected (NotDetected)
== END ==
PROVIDERS: PCP Physician Assistant; Visit Provider Physician Assistant
DX: R50.9 Fever, unspecified (principal); Z20.822 Contact with and (suspected) exposure to COVID-19
CPT/HCPCS: C9803; U0003; U0005

== ENCOUNTER 2022-07-28 19:08 | Emergency (ER) | payer MEDICARE, MEDICAID, SELFPAY ==
[2022-07-28 20:10] VITALS: BP 142/78; PULSE 77; RESP 14; TEMP 37.2; O2SAT 98; BMI 29.9
[2022-07-28 20:20] LABS: Coronavirus 19, PCR Not Detected (NotDetected); Influenza A, PCR Not Detected (NotDetected); Influenza B, PCR Not Detected (NotDetected)
--- NOTE | 2022-07-28 20:21 | EXP.UTC ---
Discharge Plan Disposition Patient Disposition: Home, Self-Care Condition: Good Prescriptions Prescriptions: New azithromycin [Zithromax Z-Pete] 250 mg tablet See Rx Instructions .ROUTE .COMPLEX 5 Days Qty: 6 0RF Rx Instructions: For 250 mg dose pack: take 500 mg today (day 1), then 250 mg for 4 days (days 2-5) No Action bupropion HCl 75 mg tablet See Rx Instructions .ROUTE .COMPLEX Qty: 120 0RF Dose Instruction: TAKE 1 TABLET BY MOUTH TWICE DAILY FOR MOOD Rx Instructions: TAKE 1 TABLET BY MOUTH TWICE DAILY FOR MOOD pioglitazone [Actos] 30 mg tablet 30 mg PO DAILY Qty: 90 3RF (DME) pen needle, diabetic [Comfort EZ Pen [place]] 32 gauge x 3/16 needle See Rx Instructions .Route Qty: 50 12RF Rx Instructions: As directed omeprazole 40 mg capsule,delayed release(DR/EC) 40 mg PO DAILY Qty: 90 3RF Januvia 100 mg tablet 100 mg PO DAILY Qty: 90 3RF hydrochlorothiazide 25 mg tablet 25 mg PO DAILY Qty: 90 3RF estradiol 2 mg tablet See Rx Instructions .Route .COMPLEX Qty: 90 3RF Rx Instructions: TAKE ONE TABLET BY MOUTH DAILY carvedilol 25 mg tablet See Rx Instructions .Route .COMPLEX Qty: 180 3RF Rx Instructions: TAKE 1 TABLET BY MOUTH TWICE DAILY WITH A MEAL OR SNACK. atorvastatin 40 mg tablet See Rx Instructions .ROUTE .COMPLEX Qty: 90 0RF Dose Instruction: TAKE 1 TABLET BY MOUTH AT BEDTIME FOR CHOLESTEROL Rx Instructions: TAKE 1 TABLET BY MOUTH AT BEDTIME FOR CHOLESTEROL cetirizine 10 mg tablet See Rx Instructions .ROUTE .COMPLEX Qty: 90 0RF Dose Instruction: TAKE 1 TABLET BY MOUTH EVERY DAY FOR ALLERGIES Rx Instructions: TAKE 1 TABLET BY MOUTH EVERY DAY FOR ALLERGIES insulin glargine [Lantus Solostar U-100 Insulin] 100 unit/mL (3 mL) insulin pen See Rx Instructions .ROUTE .COMPLEX Qty: 3 0RF Dose Instruction: ADMINISTER 20 UNITS UNDER THE SKIN AT BEDTIME Rx Instructions: ADMINISTER 20 UNITS UNDER THE SKIN AT BEDTIME lisinopril 20 mg tablet See Rx Instructions .ROUTE .COMPLEX Qty: 120 0RF Dose Instruction: TAKE 1 TABLET BY MOUTH TWICE DAILY FOR HIGH BLOOD PRESSURE Rx Instructions: TAKE 1 TABLET BY MOUTH TWICE DAILY FOR HIGH BLOOD PRESSURE trazodone 50 mg tablet See Rx Instructions .ROUTE .COMPLEX Qty: 60 0RF Dose Instruction: TAKE 1 TABLET BY MOUTH EVERY NIGHT AT BEDTIME NEEDED FOR SLEEP Rx Instructions: TAKE 1 TABLET BY MOUTH EVERY NIGHT AT BEDTIME NEEDED FOR SLEEP Referrals Follow up/Referrals: Naif Childress MD [Primary Care Provider] - See instructions Activity Restrictions/Add. Instructions Additional Instructions/Restrictions: *Monitor Temp, Over the counter Motrin or Tylenol as directed/as needed Tylenol every 4 hours and Motrin every 6 hours (as long as your family doctor has told you that you can take it) for fever or pain. and straight to ER if unable to lower temp less than 101.0 after medication given *Warm salt water gargles may help to soothe the throat *Throat Lozenges? *Warm fluids like tea with honey may help to soothe the throat? *Sleep elevated *Humidifier/Vaporizer Follow up IMMEDIATELY for new or worsening symptoms or no Noticeable improvement over the next 48-72 hours. 911 for difficulty breathing or swallowing Clinical Impressions Clinical Impression: Sinusitis Instructions Patient Instructions: Sore Throat, Sinusitis, DI for Sinusitis Discharge ED Provider: Jossie Bustamante [facility] [place] HPI General Stated complaint: Sore throat,congestion Mode of Arrival: Ambulatory Source of Information: Patient Limitations: No Limitations Time Seen by Provider: 07/28/22 20:21 Description of Symptoms (Recalled from Triage Doc. by RN): PATIENT C/O SORE THROAT, LIGHT-HEADED, RUNNY NOSE, AND SOA SINCE YESTERDAY HEENT Symptoms (Recalled from RN notes): Yes Resp Symptoms (Recalled from RN no
[2022-07-28 20:40] VITALS: BP 142/78; PULSE 77; RESP 14; TEMP 37.2; O2SAT 98
== END 2022-07-28 20:53 | disposition home or self-care (01) ==
PROVIDERS: Emergency Provider Nurse Practitioner; PCP Emergency Medicine
DX: J32.9 Chronic sinusitis, unspecified (principal)
CPT/HCPCS: 96372; 99212; 99213; C9803; G0463; J0696; U0003; U0005

== ENCOUNTER → 2022-09-21 23:28 | Outpatient (CLI) | payer MEDICARE, MEDICAID, SELFPAY ==
[2022-09-21 19:27] LABS: Hemoglobin A1C 7.3 % (4.0-6.0)
== END ==
PROVIDERS: PCP Family Medicine; Visit Provider Family Medicine
DX: E11.69 Type 2 diabetes mellitus with other specified complication (principal); Z79.4 Long term (current) use of insulin
CPT/HCPCS: 83036

== ENCOUNTER → 2022-10-12 11:00 | Outpatient (CLI) | payer MEDICARE, MEDICAID, SELFPAY ==
[2022-10-12 19:35] LABS: Free T4 (Free Thyroxine) 1.09 ng/dl (0.78-2.19)
[2022-10-12 22:34] LABS: Free Thyroxine Index 3.3 ug/dL (5.93-13.13); T4 (Thyroxine) 13.6 ug/dl (5.53-11.0); Triiodothryronine (T3) Uptake 24 % (23.5-40.5)
[2022-10-12 22:47] LABS: Thyroid Stimulating Hormone 1.27 uIU/mL (0.465-4.68)
[2022-10-14 12:54] LABS: Triiodothyronine (T3) Free 2.5 pg/mL (2.0-4.4)
== END ==
PROVIDERS: PCP Nurse Practitioner Family; Visit Provider Nurse Practitioner Family
DX: R53.83 Other fatigue; E11.69 Type 2 diabetes mellitus with other specified complication; Z79.4 Long term (current) use of insulin
CPT/HCPCS: 84436; 84439; 84443; 84479; 84481

== ENCOUNTER → 2022-10-12 13:48 | Outpatient (CLI) | payer MEDICARE, MEDICAID, SELFPAY ==
[2022-10-12 15:51] LABS: Free Thyroxine Index 3.3 ug/dL (5.93-13.13); T4 (Thyroxine) 13.2 ug/dl (5.53-11.0); Triiodothryronine (T3) Uptake 25 % (23.5-40.5)
[2022-10-12 16:04] LABS: Thyroid Stimulating Hormone 1.29 uIU/mL (0.465-4.68)
== END ==
PROVIDERS: PCP Nurse Practitioner Family; Visit Provider Nurse Practitioner Family
DX: R53.83 Other fatigue (principal)
CPT/HCPCS: 84436; 84439; 84443; 84479; 84481

== ENCOUNTER → 2022-10-21 10:21 | Outpatient (CLI) | payer MEDICARE, MEDICAID, SELFPAY ==
--- NOTE | 2022-10-21 10:21 | US_ITS ---
FINAL REPORT TECHNIQUE: Real-time grayscale and color ultrasound of the thyroid was performed. CLINICAL HISTORY: elevated T4 level COMPARISON: None FINDINGS: The thyroid gland measures 4.8 cm on the right and 3.7 cm on the left. The isthmus measures 3 mm. The echotexture is mildly heterogeneous. There is no mass or nodule identified. IMPRESSION: Mildly heterogeneous thyroid gland. No mass or nodule identified. Reviewed, Interpreted and Dictated by Surya Torres III, MD Transcribed by Mami Baugh Authenticated and [facility]
== END ==
PROVIDERS: PCP Nurse Practitioner Family; Visit Provider Nurse Practitioner Family
DX: R79.89 Other specified abnormal findings of blood chemistry (principal)
CPT/HCPCS: 76536

== ENCOUNTER → 2022-12-16 14:15 | Outpatient (CLI) | payer MEDICARE, MEDICAID, SELFPAY ==
[2022-12-16 19:21] LABS: Basophils % 0.5 % (0.1-2.0); Eosinophils # 0.1 K/mm3 (0.0-0.4); Eosinophils % 1.3 % (0.1-12.0); Hematocrit 46.6 % (37.0-47.0); Hemoglobin 14.8 g/dL (12.2-16.2); Lymphocytes # 2.5 K/mm3 (0.7-4.5); Lymphocytes % 28.2 % (10-50); Mean Corpuscular HGB Conc 31.7 g/dL (31.8-35.4); Mean Corpuscular Hemoglobin 29.3 pg (27.0-31.2); Mean Corpuscular Volume 92.4 fl (81-99); Mean Platelet Volume 10.6 fl (7.4-10.4); Monocytes # 0.5 K/mm3 (0.1-1.0); Monocytes % 5.1 % (1.7-9.3); Neutrophils # 5.7 K/mm3 (1.8-7.8); Neutrophils % 64.9 % (37.0-80.0); Platelet Count 221 K/mm3 (142-424); Red Blood Count 5.04 M/mm3 (4.20-5.40); White Blood Count 8.8 K/mm3 (4.8-10.8)
[2022-12-16 19:38] LABS: Alanine Aminotransferase 33 U/L (12-78); Albumin Level 3.9 g/dl (3.5-5.0); Albumin/Globulin Ratio 1.2 (1.1-1.8); Alkaline Phosphatase 138 U/L (38-126); Anion Gap 17.8 mEq/L (5-15); Aspartate Amino Transferase 37 U/L (14-36); Bilirubin,Total 0.9 mg/dl (0.2-1.3); Blood Urea Nitrogen 9 mg/dl (7-17); Calcium 8.7 mg/dl (8.4-10.2); Carbon Dioxide 23 mmol/L (22.0-30.0); Chloride 99 mmol/L (98-107); Chol/HDL Ratio 4.7 (1-3.5); Cholesterol 243 mg/dl (140-200); Estimated Glomerular Filt Rate 88 ml/min (>60); GFR (African American) 106 ML/MIN (>60); Globulin 3.3 g/dL (1.3-3.2); Glucose 293 mg/dl (74-100); HDL Cholesterol 52 mg/dl (40-60); Potassium 3.8 mmoL/L (3.5-5.1); Sodium 136 mmol/L (136-145); Total Protein,Serum 7.2 g/dl (6.3-8.2)
[2022-12-16 19:47] LABS: Triglycerides 501 mg/dl (30-150)
[2022-12-16 19:48] LABS: Direct LDL Cholesterol 87.35 mg/dL (100-129)
[2022-12-16 19:56] LABS: 25-OH Vitamin D, Total 18.2 ng/mL (30-100)
[2022-12-16 20:08] LABS: Hemoglobin A1C 7.3 % (4.0-6.0)
[2022-12-16 20:10] LABS: Thyroid Stimulating Hormone 0.89 uIU/mL (0.465-4.68)
[2022-12-18 12:26] LABS: T4 (Thyroxine) 9.3 ug/dl (5.53-11.0)
== END ==
PROVIDERS: PCP Nurse Practitioner Family; Visit Provider Nurse Practitioner Family
DX: E11.69 Type 2 diabetes mellitus with other specified complication (principal); E55.9 Vitamin D deficiency, unspecified; Z13.21 Encounter for screening for nutritional disorder; Z79.899 Other long term (current) drug therapy; Z79.4 Long term (current) use of insulin
CPT/HCPCS: 80053; 80061; 82306; 83036; 84436; 84443; 85025

== ENCOUNTER → 2022-12-31 23:21 | Outpatient (CLI) | payer MEDICARE, SELFPAY | PROVIDERS: PCP Student in an Organized Health Care Education/Training Program; Visit Provider Student in an Organized Health Care Education/Training Program | DX: R69 Illness, unspecified (principal); J02.9 Acute pharyngitis, unspecified | CPT/HCPCS: 87635; C9803; U0003; U0005 ==

== ENCOUNTER → 2023-01-07 15:00 | Outpatient (CLI) | payer MEDICARE, SELFPAY ==
[2023-01-07 18:12] LABS: Adenovirus,PCR Not Detected (NotDetected); Bordetella Pertussis Not Detected (NotDetected); Chlamydophila Pneumoniae, PCR Not Detected (NotDetected); Coronavirus 19, PCR Not Detected (NotDetected); Coronavirus 229E Not Detected (NotDetected); Coronavirus NL63 Not Detected (NotDetected); Coronavirus OC43 Not Detected (NotDetected); Coronovirus HKU1,PCR Not Detected (NotDetected); Influenza A, PCR Not Detected (NotDetected); Influenza AH1, 2009 Not Detected (NotDetected); Influenza AH1, PCR Not Detected (NotDetected); Influenza AH3,PCR Not Detected (NotDetected); Influenza B, PCR Not Detected (NotDetected); Mycoplasma Pneumoniae, PCR Not Detected (NotDetected); Parainfluenza 1, PCR Not Detected (NotDetected); Parainfluenza 2, PCR Not Detected (NotDetected); Parainfluenza 3, PCR Not Detected (NotDetected); Parainfluenza 4, PCR Not Detected (NotDetected); Respiratory Syncytial Virus Not Detected (NotDetected); Rhinovirus/Enterovirus Not Detected (NotDetected)
[2023-01-07 22:17] LABS: Human Metapneumovirus Detected (NotDetected)
== END ==
PROVIDERS: PCP Nurse Practitioner Family; Visit Provider Nurse Practitioner Family
DX: R05.9 Cough, unspecified (principal); J02.9 Acute pharyngitis, unspecified; B97.81 Human metapneumovirus as the cause of diseases classified elsewhere
CPT/HCPCS: 87070; 87581; 87632; 87635; 87798; C9803; U0003; U0005

== ENCOUNTER 2023-08-31 19:24 | Outpatient (CLI) | payer MEDICARE, SELFPAY ==
[2023-08-31 18:44] LABS: Basophils % 0.3 % (0.1-2.0); Eosinophils # 0.1 K/mm3 (0.0-0.4); Hematocrit 43.5 % (37.0-47.0); Hemoglobin 14.3 g/dL (12.2-16.2); Lymphocytes % 31.9 % (10-50); Mean Corpuscular Hemoglobin 30.9 pg (27.0-31.2); Mean Corpuscular Volume 93.8 fl (81-99); Monocytes # 0.5 K/mm3 (0.1-1.0); Monocytes % 5.1 % (1.7-9.3); Neutrophils # 5.8 K/mm3 (1.8-7.8); Neutrophils % 61.7 % (37.0-80.0); Platelet Count 225 K/mm3 (142-424); Red Blood Count 4.64 M/mm3 (4.20-5.40); Red Cell Distribution Width 14.2 % (11.5-17.5); White Blood Count 9.3 K/mm3 (4.8-10.8)
[2023-08-31 18:48] LABS: Alanine Aminotransferase 24 U/L (12-78); Albumin Level 4.2 g/dl (3.5-5.0); Albumin/Globulin Ratio 1.4 (1.1-1.8); Alkaline Phosphatase 113 U/L (38-126); Aspartate Amino Transferase 23 U/L (14-36); Bilirubin,Total 1.3 mg/dl (0.2-1.3); Blood Urea Nitrogen 16 mg/dl (7-17); Calcium 9.1 mg/dl (8.4-10.2); Carbon Dioxide 32 mmol/L (22.0-30.0); Chloride 101 mmol/L (98-107); Chol/HDL Ratio 4.8 (1-3.5); Cholesterol 232 mg/dl (140-200); Estimated Glomerular Filt Rate 65 ml/min (>60); GFR (African American) 79 ML/MIN (>60); Globulin 3.1 g/dL (1.3-3.2); Glucose 164 mg/dl (74-100); HDL Cholesterol 48 mg/dl (40-60); Sodium 138 mmol/L (136-145); Total Protein,Serum 7.3 g/dl (6.3-8.2); Triglycerides 224 mg/dl (30-150); VLDL Cholesterol 45 mg/dL (0-40)
[2023-08-31 18:59] LABS: Direct LDL Cholesterol 120.05 mg/dL (100-129)
[2023-08-31 19:04] LABS: 25-OH Vitamin D, Total 25.4 ng/mL (30-100)
[2023-08-31 19:17] LABS: Thyroid Stimulating Hormone 1.36 uIU/mL (0.465-4.68)
[2023-08-31 21:11] LABS: Creatinine,Urine Random 25 mg/dL (Not Estab.)
[2023-08-31 21:27] LABS: Microalbumin < 6.000 mg/L (0-16.7)
[2023-08-31 22:00] LABS: Hemoglobin A1C 6.8 % (4.0-6.0)
== END 2023-08-31 23:59 ==
LOC: LAB.DROPOF 19:24
PROVIDERS: PCP Physician Assistant; Visit Provider Physician Assistant
DX: E11.9 Type 2 diabetes mellitus without complications (principal); L02.91 Cutaneous abscess, unspecified; E55.9 Vitamin D deficiency, unspecified; Z79.84 Long term (current) use of oral hypoglycemic drugs; Z79.899 Other long term (current) drug therapy; B96.89 Other specified bacterial agents as the cause of diseases classified elsewhere
CPT/HCPCS: 80053; 80061; 82043; 82306; 82570; 83036; 84443; 85025; 87070; 87205

== ENCOUNTER 2023-09-04 11:04 | Emergency (ER) | payer MEDICARE, SELFPAY ==
[2023-09-04 11:45] VITALS: BP 131/86; PULSE 85; RESP 19; TEMP 37.4; O2SAT 98; BMI 33.5
--- NOTE | 2023-09-04 12:14 | EXP.UTC ---
Discharge Plan Disposition Patient Disposition: Home, Self-Care Condition: Good Prescriptions Prescriptions: No Action (DME) pen needle, diabetic [Comfort EZ Pen [place]] 32 gauge x 3/16 needle See Rx Instructions .Route Qty: 50 12RF Rx Instructions: As directed sulfamethoxazole-trimethoprim [Bactrim DS] 800-160 mg tablet 1 tab PO BID 10 Days Qty: 20 0RF mupirocin calcium 2 % cream 1 applic topical TID Qty: 30 0RF trazodone 50 mg tablet See Rx Instructions .ROUTE .COMPLEX Qty: 90 2RF Dose Instruction: TAKE 1 TABLET BY MOUTH EVERY NIGHT AT BEDTIME NEEDED FOR SLEEP Rx Instructions: TAKE 1 TABLET BY MOUTH EVERY NIGHT AT BEDTIME NEEDED FOR SLEEP Januvia 100 mg tablet 100 mg PO DAILY Qty: 90 3RF pioglitazone 30 mg tablet See Rx Instructions .ROUTE .COMPLEX Qty: 90 2RF Dose Instruction: TAKE 1 TABLET BY MOUTH DAILY Rx Instructions: TAKE 1 TABLET BY MOUTH DAILY omeprazole 40 mg capsule,delayed release(DR/EC) See Rx Instructions .ROUTE .COMPLEX Qty: 90 2RF Dose Instruction: TAKE 1 CAPSULE BY MOUTH DAILY FOR GERD Rx Instructions: TAKE 1 CAPSULE BY MOUTH DAILY FOR GERD lisinopril 20 mg tablet See Rx Instructions .ROUTE .COMPLEX Qty: 180 2RF Dose Instruction: TAKE 1 TABLET BY MOUTH TWICE DAILY FOR HIGH BLOOD PRESSURE Rx Instructions: TAKE 1 TABLET BY MOUTH TWICE DAILY FOR HIGH BLOOD PRESSURE hydrochlorothiazide 25 mg tablet 25 mg PO DAILY Qty: 90 3RF estradiol 2 mg tablet See Rx Instructions .Route .COMPLEX Qty: 90 3RF Rx Instructions: TAKE ONE TABLET BY MOUTH DAILY cetirizine 10 mg tablet See Rx Instructions .ROUTE .COMPLEX Qty: 90 2RF Dose Instruction: TAKE 1 TABLET BY MOUTH EVERY DAY FOR ALLERGIES Rx Instructions: TAKE 1 TABLET BY MOUTH EVERY DAY FOR ALLERGIES carvedilol 25 mg tablet See Rx Instructions .Route .COMPLEX Qty: 180 3RF Rx Instructions: TAKE 1 TABLET BY MOUTH TWICE DAILY WITH A MEAL OR SNACK. bupropion HCl 75 mg tablet See Rx Instructions .ROUTE .COMPLEX Qty: 120 2RF Dose Instruction: TAKE 1 TABLET BY MOUTH TWICE DAILY FOR MOOD Rx Instructions: TAKE 1 TABLET BY MOUTH TWICE DAILY FOR MOOD atorvastatin 40 mg tablet See Rx Instructions .ROUTE .COMPLEX Qty: 90 2RF Dose Instruction: TAKE 1 TABLET BY MOUTH AT BEDTIME FOR CHOLESTEROL Rx Instructions: TAKE 1 TABLET BY MOUTH AT BEDTIME FOR CHOLESTEROL fluticasone propionate [Flonase Allergy Relief] 50 mcg/actuation spray,suspension 1 spray intranasal Q12H Qty: 16 4RF Rx Instructions: administer into each nostril Referrals Follow up/Referrals: Suzie Mcnally PA [Primary Care Provider] - See instructions Activity Restrictions/Add. Instructions Additional Instructions/Restrictions: No sign of a bacterial infection. Likely viral. Viruses can take 7-14 days to run their course. Nasal saline and bulb syringe or nose Debora to remove nasal drainage to help with nasal congestion. Hard to eat, drink, sleep with nasal congestion so important to keep this cleaned out. Monitor temp. Tylenol or Motrin as needed for pain or fever Encourage fluids, water, Gatorade, Powerade, Pedialyte if /toddler/child Warm salt water gargles Warm fluids Sore throat lozenges Sleep elevated Humidifier/vaporizer Follow-up immediately for new or worsening symptoms or no noticeable improvement over the next 48-72 hours. Clinical Impressions Clinical Impression: COVID-19 Instructions Patient Instructions: DI for COVID-19 (Suspected or Confirmed ) Discharge ED Provider: Harpreet ([facility] [facility] [place] General Stated complaint: fever chills cough runny nose Mode of Arrival: Ambulatory Source of Information: Patient Limitations: No Limitations Time Seen by Provider: 09/04/23 12:15 Description of Symptoms (Recalled from Triage Doc. by RN): Pt did an at home covid test and it was positive. HEENT Symptoms (Recalled from RN notes): Yes Resp Symptoms (Recalled from RN notes): No Skin Symptoms (Recalled from RN notes): No MS Symptoms (Recalled from RN notes): No Functional Status (Recalled from RN notes): n/a History of Present Illness Provider Complaint: 53 yr old female presents for nasal congestion,sore throat,sinus pressure, body aches and runny nose. home covid positive Related Data Previous Rx's Medication Instructions Recorded pen needle, diabetic 32 gauge x #50 ea 02/09/2209/24 (Comfort EZ Pen [place]) atorvastatin 40 mg tablet See Rx Instructions .Route 03/03/23 .COMPLEX #90 tabs bupropion HCl 75 mg tablet See Rx Instructions .Route 03/03/23 .COMPLEX #120 tabs carvedilol 25 mg tablet See Rx Instructions .Route 03/03/23 .COMPLEX blood pressure #180 tabs cetirizine 10 mg tablet See Rx Instructions .Route 03/03/23 .COMPLEX #90 tabs estradiol 2 mg tablet See Rx Instructions .Route 03/03/23 .COMPLEX hormone replacement #90 tabs hydrochlorothiazide 25 mg tablet 25 mg PO DAILY Fluid #90 tabs 03/03/23 lisinopril 20 mg tablet See Rx Instructions .Route 03/03/23 .COMPLEX #180 tabs omeprazole 40 mg capsule,delayed See Rx Instructions .Route 03/03/23 release .COMPLEX #90 caps pioglitazone 30 mg tablet See Rx Instructions .Route 03/03/23 .COMPLEX #90 tabs sitagliptin phosphate 100 mg 100 mg PO DAILY #90 tabs 03/03/23 tablet (Januvia) trazodone 50 mg tablet See Rx Instructions .Route 03/03/23 .COMPLEX #90 tabs fluticasone propionate 50 1 spray intranasal Q12H #16 grams 07/08/23 mcg/actuation nasal spray,suspension (Flonase Allergy Relief) mupirocin calcium 2 % topical cream 1 applic topical TID #30 grams 08/31/23 sulfamethoxazole 800 1 tab PO BID 10 days #20 tabs 08/31/23 mg-trimethoprim 160 mg tablet (Bactrim DS) Allergies Allergy/AdvReac Type Severity Reaction Status Date / Time codeine [CODEINE] Allergy Unknown I-HIVES Verified 09/04/23 11:59 azithromycin AdvReac Mild Flushing Verified 09/04/23 11:59 Worker's Comp Is this a Worker's Comp case?: No [facility] Disclaimer: The information contained in this section may have been updated after the patient was seen, as this information can be updated by other users. 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) Anxiety Diabetes mellitus Esophagitis Hyperlipidemia Hypertension Migraine Pancreatitis, acute SIRS (systemic inflammatory response syndrome) Vitamin D deficiency Surgical History , KNOWLEDGE ENGINEER) History of cholecystectomy History of hysterectomy History of tonsillectomy History of tubal ligation Social History , KNOWLEDGE ENGINEER) Smoking Status: Current some day smoker tobacco type: e-cigarettes alcohol intake: never substance use type: denies use current occupational status: employed Travel in the last 8 weeks: None household members: none housing: house 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 caffeine: Yes ROS Obtained: Yes All systems reviewed & no additional complaints except as documented Constitutional Constitutional: Reports system reviewed and no additional complaints, except as documented, Reports as per HPI, Reports fever(s) and Reports headache(s) Eyes Eyes: Reports system reviewed and no additional complaints, except as documented ENT Ears, Nose, Mouth, and Throat: Reports system reviewed and no additional complaints, except as documented, Reports as per HPI, Reports headache(s), Reports nasal congestion, Reports nasal discharge, Reports sinus pain, Reports sinus pressure and Reports sore throat Cardiovascular Cardiovascular: Reports system reviewed and no additional complaints, except as documented Respiratory Respiratory: Reports system reviewed and no additional complaints, except as documented Gastrointestinal Gastrointestingal: Reports system reviewed and no additional complaints, except as documented Integumentary/Breasts Skin/Breast: Reports system reviewed and no additional complaints, except as documented Neurologic Neurologic: Reports system reviewed and no additional complaints, except as documented and Reports headache(s) Hematologic/Lymphatic Henatologic/Lymphatic: Reports system reviewed and no additional complaints, except as documented Allergic/Immunologic Allergic/Immunologic: Reports system reviewed and no additional complaints, except as documented Physical Exam General General appearance: alert and in no apparent distress Head Head exam: atraumatic Eye Eye exam: Present normal appearance and PERRL ENT ENT exam: Present normal oropharynx, mucous membranes moist and TM's normal bilaterally Respiratory Respiratory exam: Present normal lung sounds bilaterally Cardiovascular Cardiovascular exam: Present regular rate and normal rhythm Neurological Exam Neurological exam: Present alert and oriented X3 Skin Skin exam: Present warm and intact Medical Decision Making Medical Records Medical records reviewed: Yes I reviewed the patient's medical records. Blake Inquiry Pt receiving controlled substance: No Blake was queried for this patient: No Vital Signs: 09/04/23 11:45 Temperature 99.3 F Temperature Source Oral Pulse Rate [Right Radial] 85 Respiratory Rate 19 Blood Pressure [Right Arm] 131/86 Blood Pressure Mean [Right Arm] 101 Blood Pressure Source [Right Arm] Automatic Cuff Blood Pressure Position [Right Arm] Sitting 02 Sat by Pulse Oximetry 98 Oxygen Delivery Method Room Air Lab Data Lab results reviewed: Yes I reviewed the patient's lab results. Orders (Tests/Meds): ORDERS Category Date Time Status Rapid PCR Covid and Flu A/B Stat Lab 09/04/23 11:59 Ordered
[2023-09-04 12:30] LABS: Influenza A, PCR Not Detected (NotDetected); Influenza B, PCR Not Detected (NotDetected)
[2023-09-04 12:53] LABS: Coronavirus 19, PCR Detected (NotDetected)
[2023-09-04 12:56] VITALS: BP 131/86; PULSE 85; RESP 19; TEMP 37.4; O2SAT 98
== END 2023-09-04 13:08 | disposition home or self-care (01) ==
PROVIDERS: Emergency Provider Nurse Practitioner Family; PCP Physician Assistant
DX: U07.1 COVID-19 (principal); R50.9 Fever, unspecified; R51.9 Headache, unspecified; R07.0 Pain in throat; R09.81 Nasal congestion; F17.290 Nicotine dependence, other tobacco product, uncomplicated; I10 Essential (primary) hypertension; E78.5 Hyperlipidemia, unspecified; E11.9 Type 2 diabetes mellitus without complications; Z79.84 Long term (current) use of oral hypoglycemic drugs
CPT/HCPCS: 87636; 99212; 99213; G0463

== ENCOUNTER 2023-12-23 18:00 | Outpatient (CLI) | payer MEDICARE, SELFPAY ==
[2023-12-23 19:12] LABS: Basophils # 0.1 K/mm3 (0-0.2); Eosinophils # 0.1 K/mm3 (0.0-0.4); Eosinophils % 1.3 % (0.1-12.0); Hematocrit 47.5 % (37.0-47.0); Hemoglobin 14.6 g/dL (12.2-16.2); Lymphocytes # 2.3 K/mm3 (0.7-4.5); Lymphocytes % 24.9 % (10-50); Mean Corpuscular HGB Conc 30.8 g/dL (31.8-35.4); Mean Corpuscular Hemoglobin 30.1 pg (27.0-31.2); Mean Corpuscular Volume 97.8 fl (81-99); Mean Platelet Volume 10.4 fl (7.4-10.4); Monocytes # 0.5 K/mm3 (0.1-1.0); Neutrophils # 6.1 K/mm3 (1.8-7.8); Neutrophils % 67.8 % (37.0-80.0); Platelet Count 237 K/mm3 (142-424); Red Blood Count 4.86 M/mm3 (4.20-5.40); Red Cell Distribution Width 13.8 % (11.5-17.5); White Blood Count 9.1 K/mm3 (4.8-10.8)
[2023-12-23 19:44] LABS: Alanine Aminotransferase 30 U/L (12-78); Albumin Level 3.7 g/dl (3.5-5.0); Albumin/Globulin Ratio 1.2 (1.1-1.8); Alkaline Phosphatase 135 U/L (38-126); Anion Gap 15.1 mEq/L (5-15); Aspartate Amino Transferase 27 U/L (14-36); Bilirubin,Total 1.4 mg/dl (0.2-1.3); Blood Urea Nitrogen 15 mg/dl (7-17); Calcium 8.7 mg/dl (8.4-10.2); Carbon Dioxide 26 mmol/L (22.0-30.0); Chloride 98 mmol/L (98-107); Chol/HDL Ratio 4.5 (1-3.5); Cholesterol 199 mg/dl (140-200); Estimated Glomerular Filt Rate 65 ml/min (>60); GFR (African American) 79 ML/MIN (>60); Globulin 3.1 g/dL (1.3-3.2); Glucose 255 mg/dl (74-100); HDL Cholesterol 44 mg/dl (40-60); Potassium 4.1 mmoL/L (3.5-5.1); Sodium 135 mmol/L (136-145); Total Protein,Serum 6.8 g/dl (6.3-8.2); Triglycerides 258 mg/dl (30-150); VLDL Cholesterol 52 mg/dL (0-40)
[2023-12-23 19:55] LABS: Direct LDL Cholesterol 102.18 mg/dL (100-129)
[2023-12-23 20:00] LABS: 25-OH Vitamin D, Total 29.8 ng/mL (30-100)
[2023-12-23 20:04] LABS: Free Thyroxine Index 2.6 ug/dL (5.93-13.13); T4 (Thyroxine) 9.8 ug/dl (5.53-11.0); Triiodothryronine (T3) Uptake 27 % (23.5-40.5)
[2023-12-23 20:05] LABS: Hemoglobin A1C 7.5 % (4.0-6.0)
[2023-12-23 20:33] LABS: Vitamin B12 360 pg/mL (239-931)
== END 2023-12-23 23:59 | disposition home or self-care (01) ==
LOC: LAB.DROPOF 12-24 15:09
PROVIDERS: PCP Physician Assistant; Visit Provider Physician Assistant
DX: Z79.890 Hormone replacement therapy (principal); E78.2 Mixed hyperlipidemia; E55.9 Vitamin D deficiency, unspecified; R79.89 Other specified abnormal findings of blood chemistry; Z68.34 Body mass index [BMI] 34.0-34.9, adult; Z79.84 Long term (current) use of oral hypoglycemic drugs; E11.9 Type 2 diabetes mellitus without complications
CPT/HCPCS: 80050; 80053; 80061; 82306; 82607; 83036; 84436; 84443; 84479; 85025

== ENCOUNTER 2024-03-24 08:17 | Outpatient (CLI) | payer MEDICARE, SELFPAY ==
--- NOTE | 2024-03-24 08:17 | MR_ITS ---
FINAL REPORT CLINICAL HISTORY: L Shoulder pain COMPARISON: None FINDINGS: Multiplanar MR imaging of the left shoulder was performed without contrast. There is motion artifact on many of the images decreasing sensitivity of this exam. The tendons of the rotator cuff are intact without evidence of rotator cuff tear. Mild AC joint arthrosis is noted. No abnormal fluid is seen in the subacromial/subdeltoid bursa. The glenoid labrum is intact. The long head of the biceps tendon is intact. No significant glenohumeral joint effusion is seen. There is no evidence of fracture or dislocation. The musculature is intact. There is thickening and abnormal signal at the joint capsule of the axillary recess consistent with adhesive capsulitis. IMPRESSION: No evidence of rotator cuff or labral tear. Adhesive capsulitis. Reviewed, Interpreted and Dictated by Surya Torres III, MD Transcribed by Mami Baugh Authenticated and [facility]
== END 2024-03-24 23:59 | disposition home or self-care (01) ==
LOC: RAD 08:17
PROVIDERS: PCP Nurse Practitioner Family; Visit Provider Nurse Practitioner Family
DX: M25.512 Pain in left shoulder (principal)
CPT/HCPCS: 73221